=== PATIENT | male | born 1955 | race Caucasian/White ===

== ENCOUNTER → 2017-06-20 09:04 | Outpatient (POV) | payer MEDICARE, SELFPAY | PROVIDERS: Visit Provider Dermatology | DX: Z00.00 Encounter for general adult medical examination without abnormal findings (principal) ==

== ENCOUNTER → 2017-10-24 14:44 | Outpatient (POV) | payer MEDICARE, SELFPAY | PROVIDERS: Visit Provider Dermatology | DX: Z00.00 Encounter for general adult medical examination without abnormal findings (principal) ==

== ENCOUNTER 2021-03-23 16:16 | Emergency (ER) | payer MEDICARE, SELFPAY ==
--- NOTE | 2021-03-23 16:10 | ECG_ITS ---
APPROVED REPORT Exam: Resting ECG HR:82 bpm ECG Measurements Heart Rate 82 AXES ID 156 P 81 QRSd 84 QRS 15 QT 372 T 14 QTc 434 Conclusion Normal sinus rhythm Normal ECG Electronically signed by : Lopez Luna MD 03/24/2021 22:38:38
[2021-03-23 16:17] VITALS: BP 163/76; PULSE 82; RESP 18; TEMP 36.4; O2SAT 97; BMI 27.2
[2021-03-23 16:24] VITALS: BMI 27.2
--- NOTE | 2021-03-23 16:25 | XR_ITS ---
PROCEDURE INFORMATION: Exam: XR Chest Exam date and time: 03/23/2021 4:25 PM Age: 65 years old Clinical indication: Chest pressure; Patient HX: Chest pain TECHNIQUE: Imaging protocol: XR of the chest. Views: 1 view. COMPARISON: ABDPELW/O CT ABD PELVIS W/O CONTRAST 08/21/2015 11:18 PM FINDINGS: Lungs: Some peripheral interstitial prominence is seen. This corresponds to findings on CT from 2016 and is favored to be chronic interstitial disease are scarring. No focal consolidation, but the small basilar superimposed infiltrate is not excluded. Pleural spaces: Unremarkable. No pleural effusion. No pneumothorax. Heart/Mediastinum: Unremarkable. No cardiomegaly. Bones/joints: Unremarkable. IMPRESSION: Evidence of chronic interstitial lung disease. A small superimposed infiltrate cannot be excluded.
[2021-03-23 16:41] LABS: Basophils # 0.1 K/mm3 (0-0.2); Basophils % 0.9 % (0.1-2.0); Eosinophils # 0.2 K/mm3 (0.0-0.4); Eosinophils % 2.1 % (0.1-12.0); Hemoglobin 13.3 g/dL (14.1-18.0); Lymphocytes # 3.1 K/mm3 (0.7-4.5); Lymphocytes % 27.4 % (10-50); Mean Corpuscular HGB Conc 31.7 g/dL (31.8-35.4); Mean Corpuscular Hemoglobin 32.4 pg (27.0-31.2); Mean Corpuscular Volume 102.3 fl (80-94); Mean Platelet Volume 8.4 fl (7.4-10.4); Monocytes # 0.7 K/mm3 (0.1-1.0); Monocytes % 5.9 % (1.7-9.3); Neutrophils # 7.1 K/mm3 (1.8-7.8); Neutrophils % 63.7 % (37.0-80.0); Platelet Count 290 K/mm3 (142-424); Red Cell Distribution Width 13.6 % (11.5-17.5); White Blood Count 11.1 K/mm3 (4.8-10.8)
[2021-03-23 16:43] LABS: Chloride 100 mmol/L (98-107); Potassium 3.8 mmoL/L (3.5-5.1); Sodium 138 mmol/L (136-145)
[2021-03-23 16:46] LABS: Anion Gap 15.8 mEq/L (5-15); Blood Urea Nitrogen 7 mg/dl (9-20); Carbon Dioxide 26 mmol/L (22.0-30.0); Creatinine Clearance Estimated 90 mL/min (50-200); Estimated Glomerular Filt Rate 113 ml/min (>60); GFR (African American) 137 ML/MIN (>60)
[2021-03-23 16:47] LABS: Glucose 188 mg/dl (74-100)
[2021-03-23 17:10] LABS: Troponin I < 0.01 ng/ml (0.00-0.034)
--- NOTE | 2021-03-23 17:13 | HMH.EDGENADL ---
ED Disposition Clinical Impression: Chest pain Qualifiers: Chest pain type: chest pain due to myocardial ischemia Ischemic chest pain type: unspecified angina pectoris type Qualified Code(s): I25.9 - Chronic ischemic heart disease, unspecified Disposition: Home, Self-Care Condition on Discharge: Fair Additional Instructions: Follow-up with your primary care physician or your hand compositor. Return to the emergency department for any new or concerning symptoms. Referrals: Poppy Glasgow [Primary Care Provider] - - Critical Care Critical Care Time: No Attestation: On 03/23/21, the high probability of a clinically significant, sudden or life threatening deterioration of the following system(s) required my full and direct attention, intervention and personal management. The time I documented below is in addition to time spent performing reported procedures but includes the following listed in this critical care notation. Medical Decision Making - Medical Records Medical records reviewed: Yes: I reviewed the patient's medical records. - [place] Inquiry Pt receiving controlled substance: No Vital Signs: 03/23/21 16:17 03/23/21 20:01 Temperature 97.6 F 97.6 F Temperature Source Oral Pulse Rate 79 Pulse Rate [Left Radial] 82 Respiratory Rate 18 16 Blood Pressure 157/75 H Blood Pressure [Right Arm] 163/76 H Blood Pressure Mean [Right Arm] 105 Blood Pressure Source [Right Arm] Automatic Cuff Blood Pressure Position [Right Arm] Sitting 02 Sat by Pulse Oximetry 97 Oxygen Delivery Method Room Air - Lab Data Lab Results 03/23/21 16:15: WBC 11.1 H, RBC 4.10 L, Hgb 13.3 L, Hct 42.0, MCV 102.3 H, MCH 32.4 H, MCHC 31.7 L, RDW 13.6, Plt Count 290, MPV 8.4, Neut % (Auto) 63.7, Lymph % (Auto) 27.4, Hood % (Auto) 5.9, Eos % (Auto) 2.1, Baso % (Auto) 0.9, Neut # (Auto) 7.1, Lymph # (Auto) 3.1, Hood # (Auto) 0.7, Eos # (Auto) 0.2, Baso # (Auto) 0.1 03/23/21 16:15: Sodium 138, Potassium 3.8, Chloride 100, Carbon Dioxide 26, Anion Gap 15.8 H, BUN 7 L, Creatinine 0.70, Estimated Creat Clear 90, Estimated GFR 113, Est GFR ( Amer) 137, Glucose 188 H, Calcium 9.0, Troponin I < 0.01 03/23/21 19:20: Troponin I 0.03 Result diagrams: 03/23/21 16:15 03/23/21 16:15 - KASHIF Score for Non-Stemi Age of Patient: 60-69 years old Heart Rate: 70-89 bpm Systolic Blood Pressure: 160-199 mmHg Serum Creatinine: 0.40-0.79 mg/dl CHF Killip Class: I-No CHF Other Risk Factors: None Non-Stemi Risk Score: 81 Medical Decision Narrative: Patient is a 65-year-old male presenting to the emergency department with chief complaint of chest pain that began when he was driving. Differential diagnosis for this patient includes ACS, musculoskeletal chest pain, pneumonia, pneumothorax, electrolyte normality among others. Given this plan order CBC, CMP, chest x-ray, troponin, EKG. EKG showed normal sinus rhythm, did not show significant ischemic changes from the patient's prior. Chest x-ray showed no acute changes, CBC and CMP were grossly within normal limits. Initial troponin was negative, however given the patient's past heart history, as well as fasting the patient presented to the ER after chest pain will get a second troponin to trend. Already had 325 of aspirin prior to coming to the emergency department. Second troponin was not elevated, patient was observed for period of time while emergency department. He had no return of symptoms, discharged in stable condition, encouraged to call follow-up with his primary care physician and his hand compositor. General Adult HPI - General Chief complaint: Chest Pain Stated complaint: CHEST PAIN Time Seen by Provider: 03/23/21 16:25 Mode of Arrival: Ambulatory Limitations: No Limitations Description of Symptoms (Recalled from ER Triage Doc. by RN): left sided chest pain that improved with 2 nitros - History of Present Illness HPI narrative: Patient is a 65-year-old male past medical history of h
[2021-03-23 19:46] LABS: Troponin I 0.03 ng/ml (0.00-0.034)
[2021-03-23 20:01] VITALS: BP 157/75; PULSE 79; RESP 16; TEMP 36.4; O2SAT 99
== END 2021-03-23 20:02 | disposition home or self-care (01) ==
PROVIDERS: Emergency Provider Emergency Medicine; PCP Nurse Practitioner Family
DX: R07.9 Chest pain, unspecified (principal); I25.10 Atherosclerotic heart disease of native coronary artery without angina pectoris; I10 Essential (primary) hypertension; E78.5 Hyperlipidemia, unspecified; Z79.899 Other long term (current) drug therapy
CPT/HCPCS: 71045; 80048; 84484; 85025; 93005; 99283

== ENCOUNTER 2022-10-15 05:18 | Emergency (ER) | payer MEDICARE, MEDICAID, SELFPAY ==
[2022-10-15] VITALS (9 sets, daily range): BP systolic 71–124; BP diastolic 45–77; PULSE 40–80; RESP 11–23; TEMP 36.6; O2SAT 95–98; BMI 31.1
--- NOTE | 2022-10-15 05:32 | XR_ITS ---
PROCEDURE INFORMATION: Exam: XR Chest Exam date and time: 10/15/2022 5:32 AM Age: 67 years old Clinical indication: Pain; Chest pressure TECHNIQUE: Imaging protocol: Radiologic exam of the chest. Views: 2 views. COMPARISON: CR XR CHEST PORTABLE 03/23/2021 4:53 PM FINDINGS: Lungs: Some patchy bibasilar airspace disease is unchanged. Pleural spaces: Unremarkable. No pleural effusion. No pneumothorax. Heart/Mediastinum: Unremarkable. No cardiomegaly. Bones/joints: Unremarkable. IMPRESSION: Patchy bibasilar airspace disease unchanged.
--- NOTE | 2022-10-15 05:37 | ECG_ITS ---
APPROVED REPORT Exam: Resting ECG HR:70 bpm ECG Measurements Heart Rate 70 AXES NM 161 P 87 QRSd 85 QRS 39 QT 373 T 27 QTc 394 Conclusion SINUS RHYTHM WITH FREQUENT SUPRAVENTRICULAR PREMATURE COMPLEXES ABNORMAL RHYTHM ECG UNCONFIRMED REPORT Electronically signed by : Lopez Luna MD 10/16/2022 17:32:10
--- NOTE | 2022-10-15 05:38 | PC.NURSE ---
Called [facility] for records from recent visit, stating they will fax shortly
[2022-10-15 05:42] LABS: Chloride 98 mmol/L (98-107); Sodium 134 mmol/L (136-145)
[2022-10-15 05:43] LABS: Potassium 4.6 mmoL/L (3.5-5.1)
--- NOTE | 2022-10-15 05:43 | PC.NURSE ---
Pt returned from RAD
[2022-10-15 05:44] LABS: Basophils % 0.5 % (0.1-2.0); Eosinophils # 0.2 K/mm3 (0.0-0.4); Eosinophils % 2.3 % (0.1-12.0); Hematocrit 40.8 % (42.0-52.0); Hemoglobin 12.8 g/dL (14.1-18.0); Lymphocytes % 34.2 % (10-50); Mean Corpuscular HGB Conc 31.2 g/dL (31.8-35.4); Mean Corpuscular Hemoglobin 31.4 pg (27.0-31.2); Mean Corpuscular Volume 100.5 fl (80-94); Mean Platelet Volume 7.9 fl (7.4-10.4); Monocytes # 0.5 K/mm3 (0.1-1.0); Neutrophils # 4.9 K/mm3 (1.8-7.8); Platelet Count 255 K/mm3 (142-424); Red Blood Count 4.07 M/mm3 (4.60-6.20); Red Cell Distribution Width 14.3 % (11.5-17.5); White Blood Count 8.7 K/mm3 (4.8-10.8)
[2022-10-15 05:45] LABS: Alanine Aminotransferase 20 U/L (12-78); Albumin Level 3.9 g/dl (3.5-5.0); Albumin/Globulin Ratio 1.2 (1.1-1.8); Alkaline Phosphatase 92 U/L (38-126); Anion Gap 13.6 mEq/L (5-15); Aspartate Amino Transferase 36 U/L (17-59); Blood Urea Nitrogen 12 mg/dl (9-20); Carbon Dioxide 27 mmol/L (22.0-30.0); Creatinine Clearance Estimated 89 mL/min (50-200); Estimated Glomerular Filt Rate 75 ml/min (>60); GFR (African American) 90 ML/MIN (>60); Globulin 3.3 g/dL (1.3-3.2); Total Protein,Serum 7.2 g/dl (6.3-8.2)
[2022-10-15 05:46] LABS: Bilirubin,Total 0.1 mg/dl (0.2-1.3); Calcium 8.6 mg/dl (8.4-10.2); Glucose 120 mg/dl (74-100)
--- NOTE | 2022-10-15 05:54 | CT_ITS ---
PROCEDURE INFORMATION: Exam: CTA Chest With Contrast Exam date and time: 10/15/2022 6:13 AM Age: 67 years old Clinical indication: Pain; Chest pressure; Additional info: Pain, lightheadedness TECHNIQUE: Imaging protocol: Computed tomographic angiography of the chest with contrast. Exam focused on the arteries. 3D rendering (Not supervised by radiologist): MIP and/or 3D reconstructed images were created by the technologist. Radiation optimization: All CT scans at this facility use at least one of these dose optimization techniques: automated exposure control; mA and/or kV adjustment per patient size (includes targeted exams where dose is matched to clinical indication); or iterative reconstruction. Contrast material: ISOVUE; Contrast volume: 70 ml; Contrast route: INTRAVENOUS (IV); REPORTING DATA: Count of CT and Cardiac NM exams in prior 12 months: This patient has received 0 known CTs and 0 known cardiac nuclear medicine studies in the 12 months prior to the current study. COMPARISON: CR XR CHEST 2V 10/15/2022 5:32 AM FINDINGS: Pulmonary arteries: Normal. No pulmonary emboli. Aorta: Unremarkable. No aortic aneurysm. No aortic dissection. Lungs: Basilar atelectasis. Pleural spaces: Unremarkable. No pneumothorax. No pleural effusion. Heart: Unremarkable. No cardiomegaly. No pericardial effusion. Coronary arteries: Extensive coronary atherosclerosis. Lymph nodes: Prominent mediastinal lymphadenopathy. Bones/joints: Unremarkable. No acute fracture. Soft tissues: Unremarkable. IMPRESSION: 1. No evidence of pulmonary embolus. 2. Extensive coronary atherosclerosis. 3. Diffuse bibasilar atelectasis and subpleural fibrotic change.
[2022-10-15 06:04] LABS: Troponin I < 0.01 ng/ml (0.00-0.034)
--- NOTE | 2022-10-15 06:08 | PC.NURSE ---
Pt gone to CT via wheelchair
--- NOTE | 2022-10-15 06:17 | PC.NURSE ---
Pt returned from RAD via wheelchair
--- NOTE | 2022-10-15 06:18 | PC.NURSE ---
Called respiratory to check if there is a holter monitor available. Advised she would check and call back.
--- NOTE | 2022-10-15 06:22 | PC.NURSE ---
Respiratory called to state they did not have any ready but there are 2 drop off that will have to be prepared. notified
--- NOTE | 2022-10-15 06:22 | HMH.EDDIZZ ---
Discharge Plan Disposition Patient Disposition: Still a Patient Chief Complaint: Dizziness Prescriptions Prescriptions: No Action carvedilol 6.25 mg tablet 6.25 mg PO BID Label Comments: Take 1 tablet twice a day by oral route with meals. lisinopril 20 mg tablet 20 mg PO DAILY Label Comments: Take 1 tablet by mouth once daily isosorbide mononitrate 30 mg tablet extended release 24 hr 30 mg PO DAILY Label Comments: TAKE 1 TABLET by mouth 1 TIME EACH DAY IN THE MORNING clopidogrel 75 mg tablet 75 mg PO DAILY Label Comments: TAKE 1 TABLET by mouth 1 TIME EACH DAY amlodipine 5 mg tablet 5 mg PO DAILY Label Comments: Take 1 tablet every day by oral route. omeprazole 40 mg capsule,delayed release(DR/EC) 40 mg PO DAILY Label Comments: TAKE ONE CAPSULE BY MOUTH EVERY DAY tamsulosin 0.4 mg capsule 0.4 mg PO HS Label Comments: TAKE ONE CAPSULE BY MOUTH EVERY DAY AT BEDTIME gabapentin 800 mg tablet 800 mg PO QID Label Comments: TAKE 1 TABLET by mouth 4 TIMES EACH DAY metformin 1,000 mg tablet 1,000 mg PO BID Label Comments: TAKE 1 TABLET by mouth twice daily lovastatin 20 mg tablet 20 mg PO HS Label Comments: TAKE 1 TABLETby mouth once a DAY WITH THE EVENING MEAL Januvia 100 mg tablet 100 mg PO DAILY Label Comments: TAKE 1 TABLET by mouth once daily Jardiance 25 mg tablet 25 mg PO DAILY Label Comments: TAKE 1 TABLET by mouth 1 TIME EACH DAY IN THE MORNING Referrals Follow up/Referrals: Poppy Glasgow [Primary Care Provider] - See instructions Troy Jhaveri MD [Staff Physician] - See instructions Ilda Cook DPM [Staff Physician] - See instructions Activity Restrictions/Add. Instructions Additional Instructions/Restrictions: will need to see card saturday 11 am Clinical Impressions Clinical Impression: Orthostatic hypotension, Medication adverse effect Instructions Patient Instructions: DI for Orthostatic Hypotension Discharge ED Provider: Rigo (ED)Mj General Chief Complaint: Dizziness Stated Complaint: Fell d/t light headed & dizziness upper chest/back Time Seen by Provider: 10/15/22 06:22 Mode of Arrival: Ambulatory Source of Information: Patient and Medical Record Limitations: No Limitations Description of Symptoms (Recalled from ER Triage Doc. by RN): pt c/o dizziness x one month and has fallen several times. pt states was seen at [facility] for same problem. pt denies loc History of Present Illness HPI Narrative: pt with reports of occ dizzyness more with standing - pt took meds at 3 am - uncertain which meds -pt has hx of cad and was recently at [place]- for dizzyness and foot fx -lt - was advised to hold meds till discuss with pcp - pt has not seen pcp - pt has not seen card for years -no chest pain and no head trauma - no fever/no focal neuro sx and no speech or visual sx - MD complaint: dizziness and lightheadedness Onset (ago): hour(s) Timing: waxing/waning History of similar episodes: Yes History of trauma: No Severity: moderate Associated symptoms: chest pain Related Data Home Medications Medication Instructions Recorded Confirmed amlodipine 5 mg tablet 5 mg PO DAILY High blood pressure 10/15/22 10/15/22 carvedilol 6.25 mg tablet 6.25 mg PO BID High blood pressure 10/15/22 10/15/22 clopidogrel 75 mg tablet 75 mg PO DAILY Blood thinner 10/15/22 10/15/22 empagliflozin 25 mg tablet 25 mg PO DAILY Diabetes 10/15/22 10/15/22 (Jardiance) gabapentin 800 mg tablet 800 mg PO QID Pain 10/15/22 10/15/22 isosorbide mononitrate 30 mg 30 mg PO DAILY High blood pressure 10/15/22 10/15/22 tablet,extended release 24 hr lisinopril 20 mg tablet 20 mg PO DAILY High blood pressure 10/15/22 10/15/22 lovastatin 20 mg tablet 20 mg PO HS heart diease 10/15/22 10/15/22 metformin 1,000 mg tablet 1,000 mg PO BID Diabetes 10/15/22 05
--- NOTE | 2022-10-15 06:28 | PC.NURSE ---
Manual BP: 80/50
--- NOTE | 2022-10-15 06:34 | PC.NURSE ---
cynthia notified of pt's blood pressure
--- NOTE | 2022-10-15 07:20 | PC.NURSE ---
RT at placing holter monitor on pt.
--- NOTE | 2022-10-15 07:42 | PC.NURSE ---
TYRONE PAULA spoke with Dr. Frausto. Pt to follow up with Dr. frausto in clinic tomorrow at 11AM
--- NOTE | 2022-10-15 08:02 | PC.NURSE ---
ROUNDED ON PT, NO NEEDS AT THIS TIME
== END 2022-10-15 08:50 | disposition home or self-care (01) ==
PROVIDERS: Emergency Provider Emergency Medicine; PCP Nurse Practitioner Family
DX: R42 Dizziness and giddiness (principal); I95.1 Orthostatic hypotension; R07.9 Chest pain, unspecified; T50.905A Adverse effect of unspecified drugs, medicaments and biological substances, initial encounter; F17.210 Nicotine dependence, cigarettes, uncomplicated
CPT/HCPCS: 71046; 71275; 80053; 84484; 85025; 93005; 93225; 93226; 96360; 96361; 99285; Q9967

== ENCOUNTER → 2022-10-16 12:25 | Outpatient (CLI) | payer MEDICARE, MEDICAID, SELFPAY ==
[2022-10-16 13:23] LABS: Troponin I < 0.01 ng/ml (0.00-0.034)
== END ==
PROVIDERS: PCP Nurse Practitioner Family; Visit Provider Internal Medicine
DX: E11.9 Type 2 diabetes mellitus without complications (principal); E78.5 Hyperlipidemia, unspecified; I10 Essential (primary) hypertension; I25.9 Chronic ischemic heart disease, unspecified; R94.31 Abnormal electrocardiogram [ECG] [EKG]; I20.8 Other forms of angina pectoris; I95.1 Orthostatic hypotension; Z79.84 Long term (current) use of oral hypoglycemic drugs
CPT/HCPCS: 36415; 84484; 93306

== ENCOUNTER 2024-02-03 10:45 | Outpatient (CLI) | payer MEDICARE, MEDICAID, SELFPAY ==
[2024-02-03 16:40] LABS: Basophils # 0.1 K/mm3 (0-0.2); Basophils % 0.6 % (0.1-2.0); Eosinophils # 0.1 K/mm3 (0.0-0.4); Eosinophils % 1.1 % (0.1-12.0); Hematocrit 45.7 % (42.0-52.0); Hemoglobin 13.9 g/dL (14.1-18.0); Lymphocytes # 3.2 K/mm3 (0.7-4.5); Lymphocytes % 35.6 % (10-50); Mean Corpuscular HGB Conc 30.4 g/dL (31.8-35.4); Mean Corpuscular Hemoglobin 30.9 pg (27.0-31.2); Mean Corpuscular Volume 101.7 fl (80-94); Mean Platelet Volume 8.5 fl (7.4-10.4); Monocytes # 0.8 K/mm3 (0.1-1.0); Monocytes % 9.2 % (1.7-9.3); Neutrophils # 4.7 K/mm3 (1.8-7.8); Neutrophils % 53.5 % (37.0-80.0); Platelet Count 340 K/mm3 (142-424); Red Blood Count 4.49 M/mm3 (4.60-6.20); Red Cell Distribution Width 15.9 % (11.5-17.5); White Blood Count 8.9 K/mm3 (4.8-10.8)
[2024-02-03 17:14] LABS: Albumin Level 3.9 g/dl (3.5-5.0); Chloride 99 mmol/L (98-107); Potassium 4.5 mmoL/L (3.5-5.1); Sodium 131 mmol/L (136-145)
[2024-02-03 17:17] LABS: Alanine Aminotransferase 16 U/L (12-78); Albumin/Globulin Ratio 1.2 (1.1-1.8); Alkaline Phosphatase 69 U/L (38-126); Anion Gap 8.5 mEq/L (5-15); Aspartate Amino Transferase 28 U/L (17-59); Bilirubin,Total 0.5 mg/dl (0.2-1.3); Blood Urea Nitrogen 10 mg/dl (9-20); Carbon Dioxide 28 mmol/L (22.0-30.0); Cholesterol 156 mg/dl (140-200); Estimated Glomerular Filt Rate 67 ml/min (>60); GFR (African American) 81 ML/MIN (>60); Globulin 3.2 g/dL (1.3-3.2); Total Protein,Serum 7.1 g/dl (6.3-8.2); Triglycerides 64 mg/dl (30-150); VLDL Cholesterol 13 mg/dL (0-40)
[2024-02-03 17:18] LABS: Calcium 8.8 mg/dl (8.4-10.2); Glucose 112 mg/dl (74-100); HDL Cholesterol 68 mg/dl (40-60)
[2024-02-03 17:28] LABS: Direct LDL Cholesterol 57.25 mg/dL (100-129)
[2024-02-03 17:47] LABS: Thyroid Stimulating Hormone 1.97 uIU/mL (0.465-4.68)
[2024-02-03 17:49] LABS: Chol/HDL Ratio 2.3 (1-3.5)
[2024-02-03 19:03] LABS: Prostate Specific Ag Screen 0.3 ng/ml (0.0-4.0)
== END 2024-02-03 23:59 | disposition home or self-care (01) ==
LOC: LAB.DROPOF 02-04 09:39
PROVIDERS: PCP Family Medicine; Visit Provider Family Medicine
DX: Z12.5 Encounter for screening for malignant neoplasm of prostate; E11.69 Type 2 diabetes mellitus with other specified complication
CPT/HCPCS: 80053; 80061; 84443; 85025; G0103

== ENCOUNTER 2024-04-06 12:51 | Observation (INO) | payer MEDICARE, MEDICAID, SELFPAY ==
[2024-04-06] VITALS (23 sets, daily range): BP systolic 50–108; BP diastolic 34–84; PULSE 34–116; RESP 12–26; TEMP 36.6–36.8; O2SAT 77–97; BMI 28.8; BMI 28.1
--- NOTE | 2024-04-06 12:59 | ECG_ITS ---
APPROVED REPORT Exam: Resting ECG HR:113 bpm ECG Measurements Heart Rate 113 AXES QRSd 92 QRS -26 QT 324 T 261 QTc 391 Conclusion ATRIAL FIBRILLATION WITH RAPID VENTRICULAR RESPONSE BORDERLINE LEFT AXIS DEVIATION [QRS AXIS < -20] ST DEVIATION AND MODERATE T-WAVE ABNORMALITY, CONSIDER LATERAL ISCHEMIA [-0.1+ mV T-WAVE IN I/aVL/V5/V6] ST DEVIATION AND MODERATE T-WAVE ABNORMALITY, CONSIDER INFERIOR ISCHEMIA [-0.1+ mV T-WAVE IN II/aVF] ABNORMAL ECG UNCONFIRMED REPORT Electronically signed by : CAPRICE CORDOVA, 04/07/2024 06:48:09
--- NOTE | 2024-04-06 13:22 | ED_ITS ---
Discharge Plan Disposition Patient Disposition: Admitted Chief Complaint: Dizziness Prescriptions Prescriptions: No Action aspirin 81 mg tablet 81 mg PO DAILY clopidogrel 75 mg tablet 75 mg PO DAILY Qty: 90 3RF Jardiance 25 mg tablet 25 mg PO DAILY Qty: 90 3RF gabapentin 800 mg tablet 800 mg PO QID Qty: 360 1RF lisinopril 20 mg tablet 20 mg PO DAILY Qty: 90 3RF metformin 1,000 mg tablet 1,000 mg PO BID Qty: 180 3RF omeprazole 40 mg capsule,delayed release(DR/EC) 40 mg PO DAILY Qty: 90 3RF Januvia 100 mg tablet 100 mg PO DAILY Qty: 90 3RF tamsulosin 0.4 mg capsule 0.4 mg PO HS Qty: 90 3RF furosemide 40 mg tablet 40 mg PO DAILY 90 Days Qty: 90 0RF atorvastatin 80 mg tablet 80 mg PO HS 90 Days Qty: 90 0RF metoprolol tartrate 25 mg tablet 25 mg PO BID 90 Days Qty: 180 0RF Brilinta 90 mg tablet 90 mg PO BID 90 Days Qty: 180 0RF nitroglycerin 0.4 mg tablet, sublingual 0.4 mg sublingual Q5-15M PRN (Reason: chest pain) Qty: 30 0RF Rx Instructions: do not exceed 3 doses per episode Referrals Follow up/Referrals: Wilfrid Martinez MD [Primary Care Provider] - See instructions Clinical Impressions Clinical Impression: Atrial fibrillation with RVR, Weakness, Hypomagnesemia, Elevated troponin, CHF exacerbation Print Language Print Language: Malian Discharge ED Provider: David Klein General Adult HPI <Griselda Guadarrama DO - Last Filed: 04/06/24 15:07> General Chief complaint: Dizziness Stated complaint: dizziness x2 days Time Seen by Provider: 04/06/24 13:09 Mode of Arrival: Ambulatory Source of Information: Patient Limitations: No Limitations Description of Symptoms (Recalled from ER Triage Doc. by RN): PT PRESENTS TO THE ER FOR DIZZINESS, STATES IT HAS BEEN GOING ON FOR A COUPLE MONTHS BUT HAS BEEN INCREASINGLY WORSE SINCE YESTERDAY, STATES IT GETS BETTER WHEN HE SITS AND REST AND WORSE WHEN HE STANDS UP History of Present Illness HPI narrative: This patient is a 69-year-old male with a history of CAD status post stenting, reported [place] in September in [place], hypertension, hyperlipidemia, diabetes presented to the emergency department for evaluation with concern for lightheadedness that has been going on for couple months but significant got worse yesterday. He states that he gets better when he rests and worse whenever he stands up. He denies any other symptoms, such as fevers, chills, nausea, vomiting, chest pain, shortness of breath, headache, vision changes, true vertigo, or other concerns. He denies any known prior diagnoses of atrial fibrillation, but it does appear that he is in atrial fibrillation with RVR today. He states he is not aware of any palpitations or high heart rate. Related Data Home Medications ?Medication ?Instructions ?Recorded ?Confirmed aspirin 81 mg tablet 81 mg PO DAILY 10/16/22 04/02/24 Previous Rx's ?Medication ?Instructions ?Recorded clopidogrel 75 mg tablet 75 mg PO DAILY Blood thinner #90 02/03/24 tabs empagliflozin 25 mg tablet 25 mg PO DAILY Diabetes #90 tabs 02/03/24 (Jardiance) gabapentin 800 mg tablet 800 mg PO QID Pain #360 tabs 02/03/24 lisinopril 20 mg tablet 20 mg PO DAILY High blood pressure 02/03/24 #90 tabs metformin 1,000 mg tablet 1,000 mg PO BID Diabetes #180 tabs 02/03/24 omeprazole 40 mg capsule,delayed 40 mg PO DAILY gerd #90 caps 02/03/24 release sitagliptin phosphate 100 mg 100 mg PO DAILY Diabetes #90 tabs 02/03/24 tablet (Januvia) tamsulosin 0.4 mg capsule 0.4 mg PO HS prostate #90 caps 02/03/24 nitroglycerin 0.4 mg sublingual 0.4 mg sublingual Q5-15M PRN chest 03/02/24 tablet pain #30 tabs atorvastatin 80 mg tablet 80 mg PO HS 90 days #90 tabs 04/02/24 furosemide 40 mg tablet 40 mg PO DAILY 90 days #90 tabs 04/02/24 metoprolol tartrate 25 mg tablet 25 mg PO BID 90 days #180 tabs 04/02/24 ticagrelor 90 mg tablet (Brilinta) 90 mg PO BID 90 days #180 tabs 04/02/24 Allergies Allergy/AdvReac Type Severity Reaction Status Date / Time No Known Allergies Allergy Verified 04/06/24 13:16 PFSH <Griselda Guadarrama, DO - Last Filed: 04/06/24 15:07> [facility] Disclaimer: The information contained in this section may have been updated after the patient was seen, as this information can be updated by other users. Medical History Heart attack Abnormal electrocardiogram [ECG] [EKG] DM type 2 (diabetes mellitus, type 2) HLD (hyperlipidemia) HTN (hypertension) Coronary artery disease Coronary artery calcification seen on CAT scan Social History Smoking Status: Never smoker alcohol intake: never current occupational status: retired Travel in the last 8 weeks: None Other Medical History Have you received the Flu Vaccine for this season: No Have you received the Pneumonia Vaccine: Yes <Griselda Guadarrama DO - Last Filed: 04/06/24 15:07> ROS Obtained: Yes All systems reviewed & no additional complaints except as documented Physical Exam <Griselda Guadarrama DO - Last Filed: 04/06/24 15:07> General General appearance: alert and in no apparent distress Head Head exam: atraumatic and normocephalic Eye Eye exam: Present normal appearance, PERRL and EOMI ENT ENT exam: Present normal exam, normal oropharynx, mucous membranes moist and normal external ear exam Neck Neck exam: Present normal inspection, full ROM and trachea midline; Absent tenderness Chest Chest inspection: Present normal inspection and symmetric chest wall rise; Absent tenderness Respiratory Respiratory exam: Present normal lung sounds bilaterally; Absent respiratory distress, wheezes, stridor or accessory muscle use Cardiovascular Cardiovascular exam: Present tachycardia and irregular rhythm Abdominal Exam Abdominal exam: Present soft; Absent distention, tenderness or guarding Extremities Exam Extremities exam: Present normal inspection, full ROM and normal capillary refill; Absent tenderness or edema Back Exam Back exam: Present normal inspection and full ROM; Absent tenderness Neurological Exam Neurological exam: Present alert, oriented X3, CN II-XII intact and normal gait; Absent motor sensory deficit Psychiatric Psychiatric exam: Present normal affect and normal mood Skin Skin exam: Present warm and dry Medical Decision Making <Griselda Guadarrama DO - Last Filed: 04/06/24 15:07> Medical Records Medical records reviewed: Yes I reviewed the patient's medical records. Screening: Per USPSTF and CDC recommendations, given the prevalence of disease in our region, it is our hospital?s policy to screen for HIV and viral Hepatitis for all patients aged 18 and over and those with ongoing risk factors. [place] Inquiry Pt receiving controlled substance: No Vital Signs: 04/06/24 12:52 04/06/24 13:16 04/06/24 13:30 Temperature 97.9 F Temperature Source Oral Pulse Rate 114 H 98 H Pulse Rate [Left Radial] 116 H Respiratory Rate 18 19 26 H Blood Pressure 103/84 L 93/75 L Blood Pressure [Right Arm] 87/68 L Blood Pressure Mean 89 79 Blood Pressure Mean [Right Arm] 74 Blood Pressure Source [Right Arm] Automatic Cuff Blood Pressure Position [Right Arm] Sitting 02 Sat by Pulse Oximetry 96 93 L 97 Oxygen Delivery Method Room Air 04/06/24 14:00 04/06/24 14:03 04/06/24 14:04 Temperature Temperature Source Pulse Rate 93 H 94 H 94 H Pulse Rate [Left Radial] Respiratory Rate 21 20 14 Blood Pressure 61/45 L 50/34 L 71/58 L Blood Pressure [Right Arm] Blood Pressure Mean 50 39 59 Blood Pressure Mean [Right Arm] Blood Pressure Source [Right Arm] Blood Pressure Position [Right Arm] 02 Sat by Pulse Oximetry 96 97 95 Oxygen Delivery Method 04/06/24 14:21 04/06/24 14:31 04/06/24 15:00 Temperature Temperature Source Pulse Rate 92 H 70 Pulse Rate [Left Radial] Respiratory Rate 14 18 23 Blood Pressure 81/57 L 88/57 L 101/59 L Blood Pressure [Right Arm] Blood Pressure Mean 62 64 68 Blood Pressure Mean [Right Arm] Blood Pressure Source [Right Arm] Blood Pressure Position [Right Arm] 02 Sat by Pulse Oximetry 96 96 96 Oxygen Delivery Method 04/06/24 15:30 04/06/24 16:00 04/06/24 16:31 Temperature Temperature Source Pulse Rate 75 34 L 73 Pulse Rate [Left Radial] Respiratory Rate 12 15 14 Blood Pressure 100/65 L 96/58 L 76/57 L Blood Pressure [Right Arm] Blood Pressure Mean 75 68 64 Blood Pressure Mean [Right Arm] Blood Pressure Source [Right Arm] Blood Pressure Position [Right Arm] 02 Sat by Pulse Oximetry 91 L 77 L 95 Oxygen Delivery Method 04/06/24 17:00 Temperature Temperature Source Pulse Rate 74 Pulse Rate [Left Radial] Respiratory Rate 21 Blood Pressure 93/68 L Blood Pressure [Right Arm] Blood Pressure Mean Blood Pressure Mean [Right Arm] Blood Pressure Source [Right Arm] Blood Pressure Position [Right Arm] 02 Sat by Pulse Oximetry 93 L Oxygen Delivery Method Lab Data Lab results reviewed: Yes I reviewed the patient's lab results. Lab Results 04/06/24 13:00: WBC 10.7, RBC 4.60, Hgb 14.4, Hct 43.3, MCV 94.1 H, MCH 31.4 H, MCHC 33.4, RDW 15.5, Plt Count 292, MPV 7.6, Neut % (Auto) 65.8, Lymph % (Auto) 25.3, [place] % (Auto) 6.6, Eos % (Auto) 1.3, Baso % (Auto) 1.0, Neut # (Auto) 7.0, Lymph # (Auto) 2.7, [place] # (Auto) 0.7, Eos # (Auto) 0.1, Baso # (Auto) 0.1, PT 11.7, INR 1.05, APTT 28.2, D-Dimer 3.46 H, Sodium 132 L, Potassium 3.9, Chloride 90 L, Carbon Dioxide 29, Anion Gap 16.9 H, BUN 23 H, Creatinine 1.40 H, Estimated Creat Clear 57, Estimated GFR 50 L, Est GFR ( Amer) 61, Glucose 202 H, Calcium 7.9 L, Magnesium 0.5 L, Total Bilirubin 0.5, AST 35, ALT 20, Alkaline Phosphatase 86, Troponin I 0.07 H, NT-Pro-B Natriuret Pep 4990 H, Total Protein 7.8, Albumin 4.3, Globulin 3.5 H, Albumin/Globulin Ratio 1.2, HIV 1&2 Antibody Rapid Nonreactive 04/06/24 13:00 04/06/24 13:00 Orders (Tests/Meds): ED MEDICATIONS Discontinued Medications Generic Name Dose Route Start Last Admin Trade Name Freq PRN Reason Stop Dose Admin Digoxin 500 mcg 04/06/24 14:07 04/06/24 14:26 Digoxin 0.25mg/Ml 2ml Ampul IV 04/06/24 14:08 500 mcg ONCE ONE Administration Magnesium Sulfate 2 gm in 50 mls @ 50 mls/hr 04/06/24 14:37 04/06/24 14:40 Magnesium Sulfate 2gm/50ml Premix IV 04/06/24 15:36 50 mls/hr ONCE ONE Administration Calcium Gluconate/Sodium Chloride 2 gm in 100 mls @ 50 mls/hr 04/06/24 14:40 04/06/24 14:44 Calcium Gluconate 2,000mg/100ml Nacl Premix IV 04/06/24 16:39 50 mls/hr ONCE ONE Administration Iopamidol 70 ml 04/06/24 16:29 04/06/24 16:30 Iopamidol-370 (76%);100ml Bottle IV 04/06/24 16:30 70 ml ONCE ONE Administration Metoprolol Tartrate 5 mg 04/06/24 13:39 Metoprolol Tartrate 5mg/5ml Vial IV 05/06/24 13:38 Q5MINP PRN Tachyarrhythmias Sodium Chloride 500 ml 04/06/24 14:02 04/06/24 14:19 Sodium Chloride 0.9% 500ml Bag IV 04/06/24 14:03 500 ml ONCE ONE Administration Sodium Chloride 50 ml 04/06/24 16:29 04/06/24 16:30 0.9 % Sodium Chloride 50 Ml Vial IV 04/06/24 16:30 50 ml ONCE ONE Administration Sodium Chloride 10 ml 04/06/24 16:29 04/06/24 16:30 Sodium Chloride 0.9% 10ml Syr (Rad Only) IV 04/06/24 16:30 10 ml ONCE ONE Administration ORDERS Category Date Time Status CT angio chest PE protocol Stat Cat Scan 04/06/24 14:00 Completed Cardiology Consult [Consult to Cardiology] [CONS] Cons 04/06/24 14:09 Active Routine CXR --portable [XR chest portable] Stat Exams 04/06/24 13:22 Completed BNP [NT Pro Brain Natriuretic Pep.] Stat Lab 04/06/24 13:00 Completed CMP [Comprehensive Metabolic Panel] Stat Lab 04/06/24 13:00 Completed Complete Blood Count Auto Diff Stat Lab 04/06/24 13:00 Completed D-Dimer Stat Lab 04/06/24 13:00 Completed HIV (1&2) Antibody Rapid Stat Lab 04/06/24 13:00 Completed Hep C Ab with Reflex to RNA Stat Lab 04/06/24 13:00 Received MAG [Magnesium] Stat Lab 04/06/24 13:00 Completed PT INR [Prothrombin Time INR] Stat Lab 04/06/24 13:00 Completed PTT [Activated Partial Thrombo Time] Stat Lab 04/06/24 13:00 Completed Trop I [Troponin I] Stat Lab 04/06/24 13:00 Completed Troponin I Q3H Lab 04/06/24 16:32 Received Troponin I Q3H Lab 04/06/24 19:30 Ordered CA echo doppler complete Stat Y 04/06/24 14:07 Completed ECG Data Tracing #1: I reviewed this ECG and interpreted as documented below: Atrial fibrillation with rapid ventricular response with a ventricular to [address]/T wave changes without acute STEMI. ECG initial impression date: 04/06/24 ECG initial impression time: 13:00 Medical Decision Narrative: In summary, this patient is a 69-year-old male presenting to the Emergency Department for evaluation of lightheadedness. Differential diagnoses considered include but are not limited to dysrhythmia, electrolyte derangements, dehydration, CHF, ACS. Ruling out the most morbid conditions drove assessment. It should be noted patient's history includes CAD status post stenting, hypertension, hyperlipidemia, diabetes which may or may not be at goal therapy. This complicates all aspects of care by increasing patient's risk for morbidity. I reviewed patient's past medical records and noted patient's most current medication list which shows that he is on aspirin, Plavix, and Brilinta but I do not see any anticoagulation such as with Xarelto, Eliquis, or Coumadin.. On evaluation, patient is in A-fib with RVR with a rate in the 110s to 120s. He is normotensive on my assessment. Otherwise, his exam is reassuring. EKG confirms A-fib with RVR without acute ST changes concerning for ischemia. Workup included broad lab evaluation to evaluate for metabolic versus cardiac causes of his symptoms. Patient denies any known history of A-fib and is not on any true anticoagulants, though he is on antiplatelet drugs. Also unclear how long he has been in A-fib with RVR given that he has had symptoms for months but acutely got worse yesterday. He is not aware of any palpitations or racing heart rate. Given this, I do not feel that cardioversion is safe without first having an echocardiogram. I did review prior echocardiogram from 2022 which showed a grossly normal EF, but he reportedly had a heart attack for which she was admitted in [place] in September of this year. He is, of note, on metoprolol. I independently interpreted x-ray prior to the radiologist read and noted cardiomegaly with concerns for pulmonary edema. Please see their read for final interpretation. Labs were obtained that demonstrated elevated troponin, significantly elevated D-dimer, mild hyponatremia, mild JOSE JUAN, elevated BNP of 4990. He also was found to have significant hypomagnesemia and hypocalcemia, for which IV replacement were ordered. On reassessment, patient continued to have A-fib with RVR with a rate in the low 100s to 120s. His pressure slightly dropped with systolics in the 60s to 70s and relatively low maps. He was given a bolus of IV fluids for fluid challenge, and his blood pressure significantly improved with systolics in the 100s and maps in the 60s as well as heart rate then in the 70s to 80s, still in atrial fibrillation. I had an indirect discussion with cardiology who advised given the patient 0.50 digoxin and obtain a stat echo. These were ordered. Patient care signed out to the oncoming provider, Dr. Klein, pending CTA for significantly elevated D-dimer and ultimately, admission. <David Klein MD - Last Filed: 04/06/24 17:31> Vital Signs: 04/06/24 12:52 04/06/24 13:16 04/06/24 13:30 Temperature 97.9 F Temperature Source Oral Pulse Rate 114 H 98 H Pulse Rate [Left Radial] 116 H Respiratory Rate 18 19 26 H Blood Pressure 103/84 L 93/75 L Blood Pressure [Right Arm] 87/68 L Blood Pressure Mean 89 79 Blood Pressure Mean [Right Arm] 74 Blood Pressure Source [Right Arm] Automatic Cuff Blood Pressure Position [Right Arm] Sitting 02 Sat by Pulse Oximetry 96 93 L 97 Oxygen Delivery Method Room Air 04/06/24 14:00 04/06/24 14:03 04/06/24 14:04 Temperature Temperature Source Pulse Rate 93 H 94 H 94 H Pulse Rate [Left Radial] Respiratory Rate 21 20 14 Blood Pressure 61/45 L 50/34 L 71/58 L Blood Pressure [Right Arm] Blood Pressure Mean 50 39 59 Blood Pressure Mean [Right Arm] Blood Pressure Source [Right Arm] Blood Pressure Position [Right Arm] 02 Sat by Pulse Oximetry 96 97 95 Oxygen Delivery Method 04/06/24 14:21 04/06/24 14:31 04/06/24 15:00 Temperature Temperature Source Pulse Rate 92 H 70 Pulse Rate [Left Radial] Respiratory Rate 14 18 23 Blood Pressure 81/57 L 88/57 L 101/59 L Blood Pressure [Right Arm] Blood Pressure Mean 62 64 68 Blood Pressure Mean [Right Arm] Blood Pressure Source [Right Arm] Blood Pressure Position [Right Arm] 02 Sat by Pulse Oximetry 96 96 96 Oxygen Delivery Method 04/06/24 15:30 04/06/24 16:00 04/06/24 16:31 Temperature Temperature Source Pulse Rate 75 34 L 73 Pulse Rate [Left Radial] Respiratory Rate 12 15 14 Blood Pressure 100/65 L 96/58 L 76/57 L Blood Pressure [Right Arm] Blood Pressure Mean 75 68 64 Blood Pressure Mean [Right Arm] Blood Pressure Source [Right Arm] Blood Pressure Position [Right Arm] 02 Sat by Pulse Oximetry 91 L 77 L 95 Oxygen Delivery Method 04/06/24 17:00 Temperature Temperature Source Pulse Rate 74 Pulse Rate [Left Radial] Respiratory Rate 21 Blood Pressure 93/68 L Blood Pressure [Right Arm] Blood Pressure Mean Blood Pressure Mean [Right Arm] Blood Pressure Source [Right Arm] Blood Pressure Position [Right Arm] 02 Sat by Pulse Oximetry 93 L Oxygen Delivery Method Lab Data Lab Results 04/06/24 13:00: WBC 10.7, RBC 4.60, Hgb 14.4, Hct 43.3, MCV 94.1 H, MCH 31.4 H, MCHC 33.4, RDW 15.5, Plt Count 292, MPV 7.6, Neut % (Auto) 65.8, Lymph % (Auto) 25.3, [place] % (Auto) 6.6, Eos % (Auto) 1.3, Baso % (Auto) 1.0, Neut # (Auto) 7.0, Lymph # (Auto) 2.7, [place] # (Auto) 0.7, Eos # (Auto) 0.1, Baso # (Auto) 0.1, PT 11.7, INR 1.05, APTT 28.2, D-Dimer 3.46 H, Sodium 132 L, Potassium 3.9, Chloride 90 L, Carbon Dioxide 29, Anion Gap 16.9 H, BUN 23 H, Creatinine 1.40 H, Estimated Creat Clear 57, Estimated GFR 50 L, Est GFR ( Amer) 61, Glucose 202 H, Calcium 7.9 L, Magnesium 0.5 L, Total Bilirubin 0.5, AST 35, ALT 20, Alkaline Phosphatase 86, Troponin I 0.07 H, NT-Pro-B Natriuret Pep 4990 H, Total Protein 7.8, Albumin 4.3, Globulin 3.5 H, Albumin/Globulin Ratio 1.2, HIV 1&2 Antibody Rapid Nonreactive Orders (Tests/Meds): ED MEDICATIONS Discontinued Medications Generic Name Dose Route Start Last Admin Trade Name Freq PRN Reason Stop Dose Admin Digoxin 500 mcg 04/06/24 14:07 04/06/24 14:26 Digoxin 0.25mg/Ml 2ml Ampul IV 04/06/24 14:08 500 mcg ONCE ONE Administration Magnesium Sulfate 2 gm in 50 mls @ 50 mls/hr 04/06/24 14:37 04/06/24 14:40 Magnesium Sulfate 2gm/50ml Premix IV 04/06/24 15:36 50 mls/hr ONCE ONE Administration Calcium Gluconate/Sodium Chloride 2 gm in 100 mls @ 50 mls/hr 04/06/24 14:40 04/06/24 14:44 Calcium Gluconate 2,000mg/100ml Nacl Premix IV 04/06/24 16:39 50 mls/hr ONCE ONE Administration Iopamidol 70 ml 04/06/24 16:29 04/06/24 16:30 Iopamidol-370 (76%);100ml Bottle IV 04/06/24 16:30 70 ml ONCE ONE Administration Metoprolol Tartrate 5 mg 04/06/24 13:39 Metoprolol Tartrate 5mg/5ml Vial IV 05/06/24 13:38 Q5MINP PRN Tachyarrhythmias Sodium Chloride 500 ml 04/06/24 14:02 04/06/24 14:19 Sodium Chloride 0.9% 500ml Bag IV 04/06/24 14:03 500 ml ONCE ONE Administration Sodium Chloride 50 ml 04/06/24 16:29 04/06/24 16:30 0.9 % Sodium Chloride 50 Ml Vial IV 04/06/24 16:30 50 ml ONCE ONE Administration Sodium Chloride 10 ml 04/06/24 16:29 04/06/24 16:30 Sodium Chloride 0.9% 10ml Syr (Rad Only) IV 04/06/24 16:30 10 ml ONCE ONE Administration ORDERS Category Date Time Status CT angio chest PE protocol Stat Cat Scan 04/06/24 14:00 Completed Cardiology Consult [Consult to Cardiology] [CONS] Cons 04/06/24 14:09 Active Routine CXR --portable [XR chest portable] Stat Exams 04/06/24 13:22 Completed BNP [NT Pro Brain Natriuretic Pep.] Stat Lab 04/06/24 13:00 Completed CMP [Comprehensive Metabolic Panel] Stat Lab 04/06/24 13:00 Completed Complete Blood Count Auto Diff Stat Lab 04/06/24 13:00 Completed D-Dimer Stat Lab 04/06/24 13:00 Completed HIV (1&2) Antibody Rapid Stat Lab 04/06/24 13:00 Completed Hep C Ab with Reflex to RNA Stat Lab 04/06/24 13:00 Received MAG [Magnesium] Stat Lab 04/06/24 13:00 Completed PT INR [Prothrombin Time INR] Stat Lab 04/06/24 13:00 Completed PTT [Activated Partial Thrombo Time] Stat Lab 04/06/24 13:00 Completed Trop I [Troponin I] Stat Lab 04/06/24 13:00 Completed Troponin I Q3H Lab 04/06/24 16:32 Received Troponin I Q3H Lab 04/06/24 19:30 Ordered CA echo doppler complete Stat Y 04/06/24 14:07 Completed Medical Decision Narrative: In summary, this patient is a 69-year-old male presenting to the Emergency Department for evaluation of lightheadedness. Differential diagnoses considered include but are not limited to dysrhythmia, electrolyte derangements, dehydration, CHF, ACS. Ruling out the most morbid conditions drove assessment. It should be noted patient's history includes CAD status post stenting, hypertension, hyperlipidemia, diabetes which may or may not be at goal therapy. This complicates all aspects of care by increasing patient's risk for morbidity. I reviewed patient's past medical records and noted patient's most current medication list which shows that he is on aspirin, Plavix, and Brilinta but I do not see any anticoagulation such as with Xarelto, Eliquis, or Coumadin.. On evaluation, patient is in A-fib with RVR with a rate in the 110s to 120s. He is normotensive on my assessment. Otherwise, his exam is reassuring. EKG confirms A-fib with RVR without acute ST changes concerning for ischemia. Workup included broad lab evaluation to evaluate for metabolic versus cardiac causes of his symptoms. Patient denies any known history of A-fib and is not on any true anticoagulants, though he is on antiplatelet drugs. Also unclear how long he has been in A-fib with RVR given that he has had symptoms for months but acutely got worse yesterday. He is not aware of any palpitations or racing heart rate. Given this, I do not feel that cardioversion is safe without first having an echocardiogram. I did review prior echocardiogram from 2022 which showed a grossly normal EF, but he reportedly had a heart attack for which she was admitted in [place] in September of this year. He is, of note, on metoprolol. I independently interpreted x-ray prior to the radiologist read and noted cardiomegaly with concerns for pulmonary edema. Please see their read for final interpretation. Labs were obtained that demonstrated elevated troponin, significantly elevated D-dimer, mild hyponatremia, mild JOSE JUAN, elevated BNP of 4990. He also was found to have significant hypomagnesemia and hypocalcemia, for which IV replacement were ordered. On reassessment, patient continued to have A-fib with RVR with a rate in the low 100s to 120s. His pressure slightly dropped with systolics in the 60s to 70s and relatively low maps. He was given a bolus of IV fluids for fluid challenge, and his blood pressure significantly improved with systolics in the 100s and maps in the 60s as well as heart rate then in the 70s to 80s, still in atrial fibrillation. I had an indirect discussion with cardiology who advised given the patient 0.50 digoxin and obtain a stat echo. These were ordered. [facility] [place] [facility], Dr. Klein, pending CTA for significantly elevated D-dimer and ultimately, admission. Latoya: I assumed primary responsibility for this patient after signout from previous physician. Patient very well-appearing. Borderline hypotensive with systolic blood pressures 95-100. Nontachycardic, rate controlled. Oxygen appropriate on cardiac technologist and on continuous pulse oximetry. Workup independently interpreted, electrolyte disturbances which were repleted. BNP elevated with mild troponin elevation. CT angiogram of the chest was independently interpreted and no acute pulmonary embolus, but he does appear to have pulmonary edema bilaterally concerning for new onset heart failure. Interactive discussion had with hospital medicine, to be admitted for further definitive management and cardiovascular workup with cardiology Critical Care <Griselda Guadarrama, DO - Last Filed: 04/06/24 15:07> Critical Care Time Critical Care Time: Yes Attestation: On 04/06/24, the high probability of a clinically significant, sudden or life threatening deterioration of the following system(s) required my full and direct attention, intervention and personal management. The time I documented below is in addition to time spent performing reported procedures but includes the following listed in this critical care notation. Total Time Total Critical Care Time: 40
--- NOTE | 2024-04-06 13:22 | XR_ITS ---
PROCEDURE INFORMATION: Exam: XR Chest Exam date and time: 04/06/2024 1:26 PM Age: 69 years old Clinical indication: Other: Lightheadedness, new afib TECHNIQUE: Imaging protocol: Radiologic exam of the chest. Views: 1 view. COMPARISON: CT ANGIO CHEST PE PROTOCOL 10/15/2022 6:13 AM FINDINGS: Lungs: There is mild bibasilar scarring versus atelectasis. Otherwise the lungs are clear. Pleural spaces: Unremarkable. No pleural effusion. No pneumothorax. Heart/Mediastinum: Unremarkable. No cardiomegaly. Bones/joints: Unremarkable. IMPRESSION: No significant change or evidence of acute pulmonary process.
[2024-04-06 13:27] LABS: Basophils # 0.1 K/mm3 (0-0.2); Eosinophils # 0.1 K/mm3 (0.0-0.4); Eosinophils % 1.3 % (0.1-12.0); Hematocrit 43.3 % (42.0-52.0); Hemoglobin 14.4 g/dL (14.1-18.0); Lymphocytes # 2.7 K/mm3 (0.7-4.5); Lymphocytes % 25.3 % (10-50); Mean Corpuscular HGB Conc 33.4 g/dL (31.8-35.4); Mean Corpuscular Hemoglobin 31.4 pg (27.0-31.2); Mean Corpuscular Volume 94.1 fl (80-94); Mean Platelet Volume 7.6 fl (7.4-10.4); Monocytes # 0.7 K/mm3 (0.1-1.0); Monocytes % 6.6 % (1.7-9.3); Neutrophils % 65.8 % (37.0-80.0); Platelet Count 292 K/mm3 (142-424); Red Cell Distribution Width 15.5 % (11.5-17.5); White Blood Count 10.7 K/mm3 (4.8-10.8)
--- NOTE | 2024-04-06 13:31 | PC.NURSE ---
PORTABLE CHEST XRAY AT BEDSIDE
[2024-04-06 13:34] LABS: Activated Partial Thrombo Time 28.2 seconds (22.8-30.6); INR 1.05 (0.9-1.1); Prothrombin Time 11.7 seconds (10.1-12.5)
--- NOTE | 2024-04-06 13:36 | PC.NURSE ---
PROVIDED PT WITH WARM BLANKET.
--- NOTE | 2024-04-06 13:37 | PC.NURSE ---
PT RESTING IN BED. CALL LIGHT WITHIN REACH. BED IN LOWEST POSITION. NO QUESTIONS OR CONCERNS VOICED.
--- NOTE | 2024-04-06 13:37 | PC.NURSE ---
Called cardiology for Dr Guadarrama. She is speaking with Mellissa
--- NOTE | 2024-04-06 13:37 | PC.NURSE ---
DR HERMOSILLO IS SPEAKING TO CARDIOLOGY
[2024-04-06 13:38] LABS: Albumin Level 4.3 g/dl (3.5-5.0); Chloride 90 mmol/L (98-107); Potassium 3.9 mmoL/L (3.5-5.1); Sodium 132 mmol/L (136-145)
[2024-04-06 13:41] LABS: Alanine Aminotransferase 20 U/L (12-78); Albumin/Globulin Ratio 1.2 (1.1-1.8); Alkaline Phosphatase 86 U/L (38-126); Anion Gap 16.9 mEq/L (5-15); Aspartate Amino Transferase 35 U/L (17-59); Bilirubin,Total 0.5 mg/dl (0.2-1.3); Blood Urea Nitrogen 23 mg/dl (9-20); Calcium 7.9 mg/dl (8.4-10.2); Carbon Dioxide 29 mmol/L (22.0-30.0); Creatinine Clearance Estimated 57 mL/min (50-200); Estimated Glomerular Filt Rate 50 ml/min (>60); GFR (African American) 61 ML/MIN (>60); Globulin 3.5 g/dL (1.3-3.2); Glucose 202 mg/dl (74-100); Total Protein,Serum 7.8 g/dl (6.3-8.2)
[2024-04-06 13:53] LABS: D-Dimer 3.46 ug/mL (0.0-0.5); Troponin I 0.07 ng/ml (0.00-0.034)
--- NOTE | 2024-04-06 14:00 | CT_ITS ---
PROCEDURE INFORMATION: Exam: CTA Chest With Contrast Exam date and time: 04/06/2024 4:15 PM Age: 69 years old Clinical indication: Other: Tachycardia, lightheaded, elevated dimer TECHNIQUE: Imaging protocol: Computed tomographic angiography of the chest with contrast. Exam focused on the arteries. 3D rendering (Not supervised by radiologist): MIP and/or 3D reconstructed images were created by the technologist. Radiation optimization: All CT scans at this facility use at least one of these dose optimization techniques: automated exposure control; mA and/or kV adjustment per patient size (includes targeted exams where dose is matched to clinical indication); or iterative reconstruction. Contrast material: ISO 370; Contrast volume: 70 ml; Contrast route: INTRAVENOUS (IV); COMPARISON: CT ANGIO CHEST PE PROTOCOL 10/15/2022 6:13 AM FINDINGS: Pulmonary arteries: No evidence of pulmonary embolism. Aorta: Aorta is normal in caliber with a moderate amount of calcified atherosclerotic plaque. Lungs: Interstitial lung disease with patchy areas of subpleural interstitial pulmonary fibrosis, not significantly progressed from 10/15/2022 exam. No focal airspace consolidation. No pulmonary edema. Few calcified pulmonary granulomata consistent with chronic sequelae of prior granulomatous disease, unchanged. Pleural spaces: No pneumothorax. No pleural effusion. Heart: Left atrial enlargement suggestive of diastolic heart dysfunction and/or mitral valve insufficiency, grossly unchanged from prior exam. No evidence of atrial appendage thrombus. Cardiac chamber size is otherwise within normal limits. Additional chronic cardiac findings are also unchanged, including aortic valve calcifications and calcific coronary artery disease. No significant pericardial effusion. Reflux of intravenous contrast into the hepatic veins and IVC suggestive of increased right heart pressures and/or right heart dysfunction vs tricuspid regurgitation. Lymph nodes: Unremarkable. Bones/joints: Multi-level bridging and/or beaked disc osteophytes throughout the thoracic spine compatible with diffuse idiopathic skeletal hyperostosis (DISH), unchanged. No evidence of acute osseous abnormality. Soft tissues: Unremarkable. IMPRESSION: 1. No evidence of pulmonary embolism or other acute process in the chest. 2. Left atrial enlargement suggestive of diastolic heart dysfunction and/or mitral valve insufficiency, grossly unchanged from prior exam. 3. Reflux of intravenous contrast into the hepatic veins and IVC suggestive of increased right heart pressures and/or right heart dysfunction vs tricuspid regurgitation. 4. Interstitial lung disease with patchy areas of subpleural interstitial pulmonary fibrosis, not significantly progressed from 10/15/2022 exam. 5. Additional chronic ancillary findings are also unchanged from prior exam, as detailed above.
--- NOTE | 2024-04-06 14:07 | CA_ITS ---
APPROVED REPORT EXAM: Comprehensive 2D, Doppler, and color-flow Echocardiogram Senior Case Manager: Irma Cantu RVT Ht: 5 ft 6 in Wt: 179lbs BSA: 1.91 BP: 87/68 mmHg Indications: A-FIB,CAD,HTN,HLD,DM TDS-PT IN [place] POSITION FLAT ON BACK 2D Dimensions IVSd 1.07 cm M: 0.6-1.2 LVEF (Visual) 63.40 % PWd 1.00 cm M: 0.6 - 1.2 LA Volume 101.90 mL LVDd 4.20 cm M: 4.2 - 5.9 LA Volume Index 53.35 mL/m2 (M/F) 16-34 LVDs 2.77 cm M: 2.5 - 4.0 M-Mode Dimensions LA Diam 3.92 cm (1.9-4.0) TAPSE 1.94 (<1.7) Aortic Valve BRYNN Index 0.89 cm2/m2 AoV Peak Sahil. 150.0 (50-130 cm/s) AO Peak GR. 9.00 mmHg AO Mean GR. 5.50 (<5 mmHg) AO VTI 28.4 (18-25 cm) BRYNN (VTI) 1.73 (2.5-4.5 cm2) Pulmonary Valve PV Peak Velocity 56.0 (50-150 cm/s) Left Ventricle The left ventricle is normal size. Left ventricular systolic function is mildly decreased. There is increased LV wall thickness. The septum is asynchronous. Diastolic function is indeterminate. LVEF is 45%. Right Ventricle The right ventricle is normal size. The right ventricular systolic function is normal. Atria The left atrium is moderately dilated. Right atrium is mildly dilated. There is no Doppler evidence of interatrial shunt. Aortic Valve The aortic valve is mildly thickened. Trace aortic regurgitation. There is no aortic valvular stenosis. Mitral Valve The mitral valve leaflets are mildly thickened. No evidence of mitral valve stenosis. Trace mitral regurgitation. Tricuspid Valve The tricuspid valve leaflets are thin and pliable. Trace tricuspid regurgitation. There is insufficient TR jet to estimate RVSP. Pulmonic Valve The pulmonary valve is normal in structure. Trace pulmonic regurgitation. Great Vessels The aortic root is not well-visualized. The IVC is not well-visualized. The Pericardium There is no pericardial effusion. Other Information Study Quality: Fair Conclusion Mildly reduced LV systolic function (LVEF 45%). Asynchronous septum. Biatrial dilation. No significant valvular stenosis or regurgitation. Electronically signed by : Lorraine Koroma MD 04/06/2024 23:06:02
[2024-04-06] MEDS: SODIUM CHLORIDE 0.9% 500ML BAG 500 ML IV (14:19)
[2024-04-06] MEDS: DIGOXIN 0.25MG/ML 2ML AMPUL 500 MCG IV (14:26)
[2024-04-06 14:27] LABS: HIV (1&2) Antibody Rapid NONREACTIVE (NONREACTIVE)
[2024-04-06 14:29] LABS: NT Pro Brain Natriuretic Pep. 4990 pg/mL (0-125)
[2024-04-06 14:37] LABS: Magnesium 0.5 mg/dl (1.6-2.3)
[2024-04-06] MEDS: MAGNESIUM SULFATE IN WATER 2 GM/50 ML PIGGYBACK IV ×2 (14:40→21:34)
[2024-04-06] MEDS: CALCIUM GLUC IN NACL, ISO-OSM 2 GM/100 ML BAG IV (14:44)
[2024-04-06] MEDS: SODIUM CHLORIDE 0.9% 10ML SYR (RAD ONLY) 10 ML IV (16:30)
[2024-04-06] MEDS: IOPAMIDOL-370 (76%);100ML BOTTLE 70 ML IV (16:30)
[2024-04-06] MEDS: 0.9 % SODIUM CHLORIDE 50 ML VIAL IV (16:30)
[2024-04-06 16:59] LABS: Troponin I 0.07 ng/ml (0.00-0.034)
--- NOTE | 2024-04-06 18:23 | PC.NURSE ---
CALLED REPORT TO MAYLIN GROVER
--- NOTE | 2024-04-06 18:35 | PC.NURSE ---
pt arrived to floor via w/c @ 1835.
--- NOTE | 2024-04-06 18:39 | P.HP_ITS ---
History of Present Illness *Admission Date: 04/06/24 *Reason for visit:: Dizziness *History of present illness: Noah willoughby is a 69-year-old male with a medical history significant for CAD s/p 2 stents recently, type 2 diabetes, current tobacco smoker, BPH, GERD who presents with dizziness ongoing for 2 weeks. He states he had 2 stents placed at [facility] about 2 weeks ago. Shortly after discharge, he experienced trouble breathing and went to [facility] who transferred him to [facility]. He cannot recall what workup or what they did there. He was discharged and recently followed up with his PCP on 04/02/2024. At his visit, he continued to have intermittent shortness of breath and his Lasix regimen was increased from 40 mg to 80 mg until dyspnea on increases. Blood pressure at that time was 92/58, and due to this concern Coreg was held. Patient continued to experience dizziness and proceeded to our ED. Initial vital signs HR 116 (A-fib), blood pressure 87/68. Cardiology was consulted by the ED, and they recommended IV digoxin 500 mcg for rate controlled in the setting of hypotension. Patient's heart rate improved to 74, and she converted back to sinus rhythm. However he he is currently back in A-fib but ra te controlled. Current pressure 108/71. Looks comfortable, conversational, pleasant. Workup in the ED significant for magnesium 0.5, creatinine 1.4 (baseline is around 1.0) AGAP 16.9, troponin 0.07, BNP 4990. Denies chest pain, shortness of breath. Case discussed with ED provider and decision was made to admit patient for new onset A-fib with RVR, elevated troponins, hypomagnesemia. [facility] Disclaimer: The information contained in this section may have been updated after the patient was seen, as this information can be updated by other users. Medical History Heart attack Abnormal electrocardiogram [ECG] [EKG] DM type 2 (diabetes mellitus, type 2) HLD (hyperlipidemia) HTN (hypertension) Coronary artery disease Coronary artery calcification seen on CAT scan Social History (Updated 04/06/24 @ 18:48 by Jeimy Brock RN) Smoking Status: Current every day smoker tobacco type: cigarettes and pipe alcohol intake: current current occupational status: retired Travel in the last 8 weeks: None Other Medical History Have you received the Flu Vaccine for this season: No Have you received the Pneumonia Vaccine: Yes Meds Home Medications and Allergies Home Medications ?Medication ?Instructions ?Recorded ?Confirmed ?Type aspirin 81 mg tablet 81 mg PO DAILY 10/16/22 04/02/24 History clopidogrel 75 mg tablet 75 mg PO DAILY Blood thinner #90 02/03/24 04/02/24 Rx tabs empagliflozin 25 mg tablet 25 mg PO DAILY Diabetes #90 tabs 02/03/24 04/02/24 Rx (Jardiance) gabapentin 800 mg tablet 800 mg PO QID Pain #360 tabs 02/03/24 04/02/24 Rx lisinopril 20 mg tablet 20 mg PO DAILY High blood pressure 02/03/24 04/02/24 Rx #90 tabs metformin 1,000 mg tablet 1,000 mg PO BID Diabetes #180 tabs 02/03/24 04/02/24 Rx omeprazole 40 mg capsule,delayed 40 mg PO DAILY gerd #90 caps 02/03/24 04/02/24 Rx release sitagliptin phosphate 100 mg 100 mg PO DAILY Diabetes #90 tabs 02/03/24 04/02/24 Rx tablet (Januvia) tamsulosin 0.4 mg capsule 0.4 mg PO HS prostate #90 caps 02/03/24 04/02/24 Rx nitroglycerin 0.4 mg sublingual 0.4 mg sublingual Q5-15M PRN chest 03/02/24 04/02/24 Rx tablet pain #30 tabs atorvastatin 80 mg tablet 80 mg PO HS 90 days #90 tabs 04/02/24 04/02/24 Rx furosemide 40 mg tablet 40 mg PO DAILY 90 days #90 tabs 04/02/24 04/02/24 Rx metoprolol tartrate 25 mg tablet 25 mg PO BID 90 days #180 tabs 04/02/24 04/02/24 Rx ticagrelor 90 mg tablet (Brilinta) 90 mg PO BID 90 days #180 tabs 04/02/24 04/02/24 Rx New Prescriptions to Start Prescriptions: Allergies Allergy/AdvReac Type Severity Reaction Status Date / Time No Known Allergies Allergy Verified 04/06/24 13:16 Exam Data for Last 24 hours Vital signs and Labs for Last 24 Hours: Temp Pulse Resp BP Pulse Ox O2 Del Method 97.9 F 74 18 108/71 L 96 Room Air 04/06/24 12:52 04/06/24 18:05 04/06/24 18:05 04/06/24 18:05 04/06/24 18:05 04/06/24 12:52 Laboratory Results - last 24 hr 04/06/24 13:00: WBC 10.7, RBC 4.60, Hgb 14.4, Hct 43.3, MCV 94.1 H, MCH 31.4 H, MCHC 33.4, RDW 15.5, Plt Count 292, MPV 7.6, Neut % (Auto) 65.8, Lymph % (Auto) 25.3, [place] % (Auto) 6.6, Eos % (Auto) 1.3, Baso % (Auto) 1.0, Neut # (Auto) 7.0, Lymph # (Auto) 2.7, [place] # (Auto) 0.7, Eos # (Auto) 0.1, Baso # (Auto) 0.1, PT 11.7, INR 1.05, APTT 28.2, D-Dimer 3.46 H, Sodium 132 L, Potassium 3.9, Chloride 90 L, Carbon Dioxide 29, Anion Gap 16.9 H, BUN 23 H, Creatinine 1.40 H, Estimated Creat Clear 57, Estimated GFR 50 L, Est GFR ( Amer) 61, Glucose 202 H, Calcium 7.9 L, Magnesium 0.5 L, Total Bilirubin 0.5, AST 35, ALT 20, Alkaline Phosphatase 86, Troponin I 0.07 H, NT-Pro-B Natriuret Pep 4990 H, Total Protein 7.8, Albumin 4.3, Globulin 3.5 H, Albumin/Globulin Ratio 1.2, HIV 1&2 Antibody Rapid Nonreactive 04/06/24 16:32: Troponin I 0.07 H I & O for Last 24 hours: Intake & Output 04/03/24 04/04/24 04/05/24 04/06/24 23:59 23:59 23:59 23:59 Weight 81.193 kg Constitutional Constitutional: no acute distress *Routine HEENT Exam Head: Present normocephalic Eye: Present EOMI and PERRL ENT: Present mucous membranes moist *Routine Neck Exam Neck: Present supple; Absent lymphadenopathy *Routine Respiratory Exam Respiratory: Present CTA bilaterally *Routine Cardiovascular Exam Cardiovascular: Present RRR and irregular rhythm *Routine Abdominal Exam Abdominal: Present soft and normoactive bowel sounds; Absent tenderness *Routine Rectal Exam Rectal:: deferred *Routine Genitalia Exam Genitalia:: deferred *Routine Extremities Exam Extremities: Absent cyanosis, clubbing or edema *Routine Skin Exam Skin: Present warm; Absent rash *Routine Neurological Exam Neurological: Present alert and oriented X3 Assessment and Plan *Assessment and plan (1) NSTEMI (non-ST elevated myocardial infarction): Status: Acute Category: Medical Code(s): I21.4 - Non-ST elevation (NSTEMI) myocardial infarction (2) Elevated troponin: Status: Acute Category: Medical Code(s): R79.89 - Other specified abnormal findings of blood chemistry (3) Hypomagnesemia: Status: Acute Category: Medical Code(s): E83.42 - Hypomagnesemia (4) Atrial fibrillation with RVR: Status: Acute Category: Medical Code(s): I48.91 - Unspecified atrial fibrillation (5) DM type 2 (diabetes mellitus, type 2): Status: Acute Qualifiers: Diabetes mellitus custodial insulin use: unspecified duct cleaner insulin use status Diabetes mellitus complication status: with other specified complication Qualified Code(s): E11.69 - Type 2 diabetes mellitus with other specified complication Category: Medical Code(s): E11.9 - Type 2 diabetes mellitus without complications (6) Coronary artery disease: Status: Chronic Qualifiers: Coronary Disease-Associated Artery/Lesion type: [place] artery [place] vs. transplanted heart: [place] heart Associated angina: with other forms of angina Qualified Code(s): I25.118 - Atherosclerotic heart disease of [place] coronary artery with other forms of angina pectoris Category: Medical Code(s): I25.10 - Atherosclerotic heart disease of [place] coronary artery without angina pectoris Plan Noah willoughby is a 69-year-old male with a medical history significant for CAD s/p 2 stents recently, type 2 diabetes, current tobacco smoker, BPH, GERD who presents with dizziness ongoing for 2 weeks. He states he had 2 stents placed at [facility] about 2 weeks ago. Shortly after discharge, he experienced trouble breathing and went to [facility] who transferred him to [facility]. He cannot recall what workup or what they did there. He was discharged and recently followed up with his PCP on 04/02/2024. At his visit, he continued to have intermittent shortness of breath and his Lasix regimen was increased from 40 mg to 80 mg until dyspnea on increases. Blood pressure at that time was 92/58, and due to this concern Coreg was held. Patient continued to experience dizziness and proceeded to our ED. Initial vital signs HR 116 (A-fib), blood pressure 87/68. Cardiology was consulted by the ED, and they recommended IV digoxin 500 mcg for rate controlled in the setting of hypotension. Patient's heart rate improved to 74, and she converted back to sinus rhythm. However he he is currently back in A-fib but rate controlled. Current pressure 108/71. Looks comfortable, conversational, pleasant. Workup in the ED significant for magnesium 0.5, creatinine 1.4 (baseline is around 1.0) AGAP 16.9, troponin 0.07, BNP 4990. CTA chest shows reflex of IV contrast into the hepatic veins and IVC, left atrial enlargement. Denies chest pain, shortness of breath. Case discussed with ED provider and decision was made to admit patient for new onset A-fib with RVR, elevated troponins, hypomagnesemia. #NSTEMI, undetermined type at this time #History of CAD s/p 2 stents ? Recently had 2 stents placed about 2 weeks ago at [facility]. ? Presents with lightheadedness. ? Initial troponin 0.07, EKG shows T wave inversions in leads II, III, V5, V6 compared to EKG in 2022. This may be sequela of recent NSTEMI s/p 2 stents 2 weeks ago. ? Currently chest pain-free, no shortness of breath. ? Troponinemia may be sequela of recent PCI. ? However, patient has significant risk factors including longstanding smoking history, diabetes. As such, will start heparin drip. ? Heparin drip until cardiology evaluation tomorrow. ? Follow-up ECHO. ? Follow-up troponins, serial EKGs. ? Follow-up outside medical records from [facility]. ? Resumed home aspirin 81 mg, Brilinta 90 mg twice daily. ? Cardiology consulted, pending recommendations. #New onset A-fib #RVR resolved ? Initial heart rate 116, responded well to digoxin 500 mcg per cardiology recommendations in the ED. ? Currently still in A-fib, but rate controlled HR 74. ? Etiology may be multifactorial with hypomagnesemia 0.5, recently holding Coreg in the setting of soft blood pressures, recent PCI, evidence of heart failure on CTA. ? Continue holding Coreg at this time with evidence of right heart failure with reflux on CTA and soft pressures. No exam evidence of volume overload at this time. ? Continue digoxin 62.5 mcg starting tomorrow. ? IV heparin drip for this time for anticoagulation. ? Follow-up ECHO. ? Pending further cardiology recommendations. #Elevated BNP #Suspected heart failure ? Initial BNP 4990, with evidence of contrast reflux into IVC on CTA but this is a nonspecific finding. ? Currently does not seem to be volume overloaded on exam. ? Elevated BNP may be in the setting of A-fib RVR. ? Will hold off on diuresis at this time given soft pressures, pending echo r esults. ? If soft pressures are from significant right heart failure, will benefit from inotropes such as digoxin as above. ? Follow-up ECHO. ? Pending further cardiology recommendations. #Hypomagnesemia ? Initial magnesium 0.5. Given IV magnesium 2 g in the ED. ? Will give additional IV 2 g. Potassium 3.9. #JOSE JUAN ? Initial creatinine 1.4, baseline around 1.0. ? Patient does not seem to be volume overloaded at this time to suggest cardiorenal. ? Will hold off on diuresis and fluids at this time pending ECHO. ? Continue to monitor renal function. #Pulmonary fibrosis ? Seen on CTA chest. ? Consulted pulmonology to establish care. #Type 2 diabetes ? ACHS glucose checks, LDSSI. #Current tobacco smoker ? Nicotine patch as needed. #GERD ? Resume home PPI. #BPH ? Continue home tamsulosin. DNR/DNI DVT prophylaxis: Heparin drip
[2024-04-06] MEDS: HEPARIN DRIP CONSULT 1 EACH NOTAPPLIC (20:20)
[2024-04-06 20:29] LABS: PTT Heparin (inpatient only) 27.4 Seconds (50-75)
[2024-04-06 20:30] LABS: Troponin I 0.07 ng/ml (0.00-0.034)
[2024-04-06] MEDS: HEPARIN SODIUM,PORCINE/D5W 500 ML 19 UNIT IV (20:42)
[2024-04-06] MEDS: HEPARIN SODIUM 5,000 UNIT/ML VIAL 4000 UNIT IV (20:42)
[2024-04-06] MEDS: ATORVASTATIN 40MG TABLET 80 MG PO (21:47)
[2024-04-06] MEDS: TICAGRELOR 90MG TABLET 90 MG PO (21:48)
--- NOTE | 2024-04-06 21:50 | PC.NURSE ---
patient refused HS insulin w/ FSBS 198 - stated his sugar has been 300 and he's never needed insulin before. Patient educated his glucose is elevated but he has the right to refuse. Patient verbalized understanding.
--- NOTE | 2024-04-06 23:17 | PC.NURSE ---
patient has remained hypotensive between 1899 and now (2314). Hospitalist notified, see VS. patient denies any CP, SOA, dizziness, etc and is resting in bed.
[2024-04-07] VITALS (13 sets, daily range): BP systolic 69–117; BP diastolic 35–72; PULSE 70–104; RESP 16–24; TEMP 36.3–36.7; O2SAT 93–100; BMI 28.3
--- NOTE | 2024-04-07 00:46 | PC.NURSE ---
Addendum entered by Donato Sosa RN 04/07/24 01:57: Hospitalist stated he contacted [facility], with orders to monitor and let be as long as patient was comfortable and asymptomatic. Addendum entered by Donato Sosa RN 04/07/24 00:58: 500 ML bolus ordered and infusing Original Note: patient is hypotensive with MAP's in the 40's, asymptomatic, and Hospitalist notified. SEE VS
--- NOTE | 2024-04-07 00:49 | EXP.EVENT.NO ---
Problem: Low blood pressure while sleeping MAP going down to as low as 45, sometimes will come back up to 68, also noted he is deeply asleep saturations began to drop 1 L placed on him brought saturations back up to 95 did not affect blood pressure. Exam patient sleeping comfortably respirations regular presently on 1 L O2 sats are 97, no sign of any respiratory difficulty., Skin is of normal color Plan; patient was given 500 cc normal saline at 2:00 today I am going to go ahead and repeat that to see if it will bring up his blood pressure to trying to keep the MAP near 65. Without adding any type of pressors. Examination of his CT of the chest and the lungs showed normal was no signs of any fluid overload so feel comfortable giving 500 cc. Examination of the cardiac echo showed decreased LV function about 45%, noted the right ventricle appeared to be normal on the echo but showed some form of strain on the CT scan reading. Will continue with monitoring the patient throughout the night if much more needs to be done 01:40 patient remains sleeping well resting comfortably heart rate remained stable, patient is very deep asleep I can come into the room he does not arouse respirations are regular and equal, I was able to talk to Dr. Jhaveri about another patient told about this patient., Of the blood pressure being low with a MAP being less than 65., Dr. Jhaveri said he was not concerned as long as the patient was comfortable not having any symptoms and was sleeping deeply that we did not did not need to do anything at this time. Previously I had given him an extra 500 cc of normal saline this had absolutely no effect on his blood pressure,. the patient does not seem to be dry. Records from [place] have been received. Patient was status post stent in the recent past. Patient was placed on a heparin drip there and his medications were slightly adjusted to Lipitor be taken at night aspirin Brilinta metoprolol already and's lisinopril echocardiogram showed an ejection fraction of 50% ?5% out there was normal left ventricular systolic function but had a grade 3 dystonic dysfunction but there was no hemodynamically significant valvular heart disease.
[2024-04-07] MEDS: 0.9 % SODIUM CHLORIDE 1000ML 500 ML IV (00:56)
[2024-04-07 02:08] LABS: PTT Heparin (inpatient only) 45.4 Seconds (50-75)
[2024-04-07] MEDS: HEPARIN SODIUM 5,000 UNIT/ML VIAL 3000 UNIT IV (02:19)
[2024-04-07] MEDS: HEPARIN SODIUM,PORCINE/D5W 500 ML 22 UNIT IV (02:19)
[2024-04-07 05:31] LABS: POC Glucose,Bedside 147 (70-110)
[2024-04-07 06:07] LABS: POC Glucose,Bedside 198 (70-110)
[2024-04-07 06:42] LABS: Basophils # 0.1 K/mm3 (0-0.2); Eosinophils # 0.1 K/mm3 (0.0-0.4); Eosinophils % 1.4 % (0.1-12.0); Hematocrit 39.6 % (42.0-52.0); Hemoglobin 13.3 g/dL (14.1-18.0); Lymphocytes # 2.4 K/mm3 (0.7-4.5); Lymphocytes % 28.9 % (10-50); Mean Corpuscular HGB Conc 33.5 g/dL (31.8-35.4); Mean Corpuscular Hemoglobin 31.2 pg (27.0-31.2); Mean Platelet Volume 7.6 fl (7.4-10.4); Monocytes # 0.7 K/mm3 (0.1-1.0); Monocytes % 8.2 % (1.7-9.3); Neutrophils % 60.5 % (37.0-80.0); Platelet Count 287 K/mm3 (142-424); Red Blood Count 4.26 M/mm3 (4.60-6.20); Red Cell Distribution Width 15.7 % (11.5-17.5); White Blood Count 8.3 K/mm3 (4.8-10.8)
[2024-04-07 06:45] LABS: Alanine Aminotransferase 13 U/L (12-78); Albumin Level 3.6 g/dl (3.5-5.0); Albumin/Globulin Ratio 1.2 (1.1-1.8); Alkaline Phosphatase 84 U/L (38-126); Anion Gap 12.6 mEq/L (5-15); Aspartate Amino Transferase 30 U/L (17-59); Bilirubin,Total 0.6 mg/dl (0.2-1.3); Blood Urea Nitrogen 14 mg/dl (9-20); Calcium 8.2 mg/dl (8.4-10.2); Carbon Dioxide 28 mmol/L (22.0-30.0); Chloride 95 mmol/L (98-107); Chol/HDL Ratio 2.2 (1-3.5); Cholesterol 116 mg/dl (140-200); Creatinine Clearance Estimated 79 mL/min (50-200); Estimated Glomerular Filt Rate 74 ml/min (>60); GFR (African American) 90 ML/MIN (>60); Globulin 3.1 g/dL (1.3-3.2); Glucose 119 mg/dl (74-100); HDL Cholesterol 53 mg/dl (40-60); Magnesium 1.5 mg/dl (1.6-2.3); Potassium 3.6 mmoL/L (3.5-5.1); Sodium 132 mmol/L (136-145); Total Protein,Serum 6.7 g/dl (6.3-8.2); Triglycerides 60 mg/dl (30-150); VLDL Cholesterol 12 mg/dL (0-40)
[2024-04-07 06:55] LABS: Direct LDL Cholesterol 49.03 mg/dL (100-129)
--- NOTE | 2024-04-07 08:10 | HMH.PHAINT1 ---
Pharmacy Intervention Comments: HOME MEDICATIONS VERIFIED VIA OUTPATIENT PHARMACY
[2024-04-07 08:21] LABS: HCV Ab Non Reactive (Non Reactive)
--- NOTE | 2024-04-07 08:32 | P.CONPHA_ITS ---
[facility] Pharmacy Heparin Dosing Demographic Data Admission date:: 04/06/24 Date: 04/07/24 Time: 08:32 Allergies Allergy/AdvReac Type Severity Reaction Status Date / Time No Known Allergies Allergy Verified 04/06/24 13:16 Height: 1.68 m Weight: 80.15 kg Indication Medication therapy:: Heparin Current Indications:: ATRIAL FIBRILLATION - MEDIUM DOSE PROTOCOL Current Active Problems (Updated 04/07/24 @ 12:24 by Obie Brown MD) Fibrosis of lung (Acute) NSTEMI (non-ST elevated myocardial infarction) (Acute) CHF exacerbation (Acute) Elevated troponin (Acute) Hypomagnesemia (Acute) Weakness (Acute) Atrial fibrillation with RVR (Acute) Abnormal electrocardiogram [ECG] [EKG] (Acute) DM type 2 (diabetes mellitus, type 2) (Acute) HLD (hyperlipidemia) (Acute) HTN (hypertension) (Acute) Coronary artery disease (Chronic) CVA?: No Bleeding problem?: No Kidney disease?: No NE?: No Desired PTT range:: 50-75 seconds Comments:: BASELINE PTT: 28.2 SECONDS/27.4 SECONDS Labs Anticoagulation Lab Results:: 04/06/24 04/07/24 13:00 05:35 Hgb 14.4 13.3 L Hct 43.3 39.6 L Plt Count 292 287 Monitoring Dose Monitor 1: Date: 04/06/24 Time: 20:23 PTT Result:: BASELINE PTT: 28.2 SECONDS/27.4 SECONDS - WAS DRAWN TWICE YESTERDAY. Infusion Rate:: RECOMMEND INITIATING HEPARIN DRIP AT 950 UNITS/HOUR = 19 ML/HOUR AND BOLUS 4000 UNITS HEPARIN IV ONCE. Comment:: PLATELET COUNT = 292,000 Dose Monitor 2: Date: 04/07/24 Time: 02:00 PTT Result:: 45.4 SECONDS Infusion Rate:: RECOMMEND INCREASING HEPARIN DRIP RATE TO 1100 UNITS/HOUR = 22 ML/HOUR AND BOLUSING 3000 UNITS HEPARIN IV ONCE. Dose Monitor 3: Date: 04/07/24 Time: 08:30 PTT Result:: 67.5 SECONDS Infusion Rate:: RECOMMEND CONTINUING CURRENT HEPARIN DRIP RATE OF 1100 UNITS/HOUR = 22 ML/HOUR Comment:: PLATELET COUNT = 287,000 Core Measures Is INR > or = 2 at discharge?: No Most Recent Labs:: Laboratory Results - last 24 hr 04/06/24 13:00: WBC 10.7, RBC 4.60, Hgb 14.4, Hct 43.3, MCV 94.1 H, MCH 31.4 H, MCHC 33.4, RDW 15.5, Plt Count 292, MPV 7.6, Neut % (Auto) 65.8, Lymph % (Auto) 25.3, [place] % (Auto) 6.6, Eos % (Auto) 1.3, Baso % (Auto) 1.0, Neut # (Auto) 7.0, Lymph # (Auto) 2.7, [place] # (Auto) 0.7, Eos # (Auto) 0.1, Baso # (Auto) 0.1, PT 11.7, INR 1.05, APTT 28.2, D-Dimer 3.46 H, Sodium 132 L, Potassium 3.9, Chloride 90 L, Carbon Dioxide 29, Anion Gap 16.9 H, BUN 23 H, Creatinine 1.40 H, Estimated Creat Clear 57, Estimated GFR 50 L, Est GFR ( Amer) 61, Glucose 202 H, Calcium 7.9 L, Magnesium 0.5 L, Total Bilirubin 0.5, AST 35, ALT 20, Alkaline Phosphatase 86, Troponin I 0.07 H, NT-Pro-B Natriuret Pep 4990 H, Total Protein 7.8, Albumin 4.3, Globulin 3.5 H, Albumin/Globulin Ratio 1.2, Hepatitis C Antibody Non reactive, HIV 1&2 Antibody Rapid Nonreactive 04/06/24 16:32: Troponin I 0.07 H 04/06/24 19:55: APTT 27.4 L, Troponin I 0.07 H 04/06/24 21:50: POC Glucose 198 H 04/07/24 01:45: APTT 45.4 L 04/07/24 05:01: POC Glucose 147 H 04/07/24 05:35: WBC 8.3, RBC 4.26 L, Hgb 13.3 L, Hct 39.6 L, MCV 93.0, MCH 31.2, MCHC 33.5, RDW 15.7, Plt Count 287, MPV 7.6, Neut % (Auto) 60.5, Lymph % (Auto) 28.9, [place] % (Auto) 8.2, Eos % (Auto) 1.4, Baso % (Auto) 1.0, Neut # (Auto) 5.0, Lymph # (Auto) 2.4, [place] # (Auto) 0.7, Eos # (Auto) 0.1, Baso # (Auto) 0.1, Sodium 132 L, Potassium 3.6, Chloride 95 L, Carbon Dioxide 28, Anion Gap 12.6, BUN 14 D, Creatinine 1.00 D, Estimated Creat Clear 79, Estimated GFR 74, Est GFR ( Amer) 90 D, Glucose 119 H D, Calcium 8.2 L, Magnesium 1.5 L D, Total Bilirubin 0.6, AST 30, ALT 13 D, Alkaline Phosphatase 84, Total Protein 6.7, Albumin 3.6 D, Globulin 3.1, Albumin/Globulin Ratio 1.2, Triglycerides 60, Cholesterol 116 L, LDL Cholesterol Direct 49.03 L, VLDL Cholesterol 12, HDL Ch olesterol 53, Cholesterol/HDL Ratio 2.2 If INR was < than 2.0 why was therapy stopped?: PATIENT SENT HOME ON XARELTO Were Heparin and Warfarin started on the same day?: No If not, why?: PATIENT SENT HOME ON XARELTO
[2024-04-07 08:51] LABS: PTT Heparin (inpatient only) 67.5 Seconds (50-75)
[2024-04-07] MEDS: TICAGRELOR 90MG TABLET 90 MG PO (10:33)
[2024-04-07] MEDS: ASPIRIN EC 81MG TABLET 81 MG PO (10:33)
[2024-04-07] MEDS: DIGOXIN 0.125MG TABLET 62.5 MCG PO (10:33)
[2024-04-07] MEDS: GABAPENTIN 800MG TABLET 800 MG PO (10:34)
[2024-04-07] MEDS: EMPAGLIFLOZIN 10MG TABLET 25 MG PO (10:34)
--- NOTE | 2024-04-07 10:49 | P.CONS_ITS ---
History of Present Illness History of present illness: Ms. Castro is a 69-year-old male history of tobacco abuse, CAD status post stenting type 2 diabetes mellitus scented to ER with worsening respiratory distress and pulmonary was called for further evaluation and management. Current smoker greater than [id number] smoking history smoking 2 packs a day. Denies any respiratory symptoms at baseline. Not using any oxygen supplementation. Not using any inhalers. [facility] Disclaimer: The information contained in this section may have been updated after the patient was seen, as this information can be updated by other users. Medical History (Updated 04/07/24 @ 12:24 by Obie Brown MD) Fibrosis of lung Heart attack Abnormal electrocardiogram [ECG] [EKG] DM type 2 (diabetes mellitus, type 2) HLD (hyperlipidemia) HTN (hypertension) Coronary artery disease Coronary artery calcification seen on CAT scan Social History (Updated 04/06/24 @ 18:48 by Jeimy Brock RN) Smoking Status: Current every day smoker tobacco type: cigarettes and pipe alcohol intake: current current occupational status: retired Travel in the last 8 weeks: None Review of Systems Constitutional Constitutional: Reports anorexia, Reports body ache(s) and Reports fatigue Eyes Eyes: Denies eye discharge, Denies dry eyes, Denies irritation and Denies itchy eyes ENT Ears, Nose, Mouth, and Throat: Denies epistaxis, Denies facial pain, Denies lip swelling and Denies throat swelling *Cardiovascular Cardiovascular: Denies dyspnea and Reports dyspnea on exertion *Respiratory Respiratory: Denies change in phlegm color, Reports chest congestion, Reports cough, Denies dyspnea, Reports dyspnea on exertion, Denies excessive phlegm production, Denies hemoptysis, Denies pain on inspiration, Denies pain with cough and Denies wheezing *Gastrointestinal Gastrointestinal: Denies abdominal pain, Denies belching and Denies cramping *Musculoskeletal Musculoskeletal: Reports back pain, Reports myalgias and Reports other (No small joint swelling or Pain) Psychiatric Psychiatric: Denies homicidal ideation and Denies suicidal ideation Endocrine Endocrine: Reports fatigue and Denies heat intolerance Hematologic/Lymphatic Hematologic/Lymphatic: Denies easy bleeding and Denies lymphadenopathy Allergic/Immunologic Allergic/Immunologic: Denies itchy eyes, Denies lip swelling, Denies throat swelling and Denies wheezing Pulmonology Exam Inpatient Vital signs and Labs for Last 24 Hours: Temp Pulse Resp BP Pulse Ox O2 Del Method O2 Flow Rate 97.4 F L 80 16 110/70 97 Room Air 1 04/07/24 08:00 04/07/24 10:33 04/07/24 08:00 04/07/24 08:00 04/07/24 08:00 04/07/24 08:50 04/07/24 04:38 Laboratory Results - last 24 hr 04/06/24 13:00: WBC 10.7, RBC 4.60, Hgb 14.4, Hct 43.3, MCV 94.1 H, MCH 31.4 H, MCHC 33.4, RDW 15.5, Plt Count 292, MPV 7.6, Neut % (Auto) 65.8, Lymph % (Auto) 25.3, [place] % (Auto) 6.6, Eos % (Auto) 1.3, Baso % (Auto) 1.0, Neut # (Auto) 7.0, Lymph # (Auto) 2.7, [place] # (Auto) 0.7, Eos # (Auto) 0.1, Baso # (Auto) 0.1, PT 11.7, INR 1.05, APTT 28.2, D-Dimer 3.46 H, Sodium 132 L, Potassium 3.9, Chloride 90 L, Carbon Dioxide 29, Anion Gap 16.9 H, BUN 23 H, Creatinine 1.40 H, Estimated Creat Clear 57, Estimated GFR 50 L, Est GFR ( Amer) 61, Glucose 202 H, Calcium 7.9 L, Magnesium 0.5 L, Total Bilirubin 0.5, AST 35, ALT 20, Alkaline Phosphatase 86, Troponin I 0.07 H, NT-Pro-B Natriuret Pep 4990 H, Total Protein 7.8, Albumin 4.3, Globulin 3.5 H, Albumin/Globulin Ratio 1.2, Hepatitis C Antibody Non reactive, HIV 1&2 Antibody Rapid Nonreactive 04/06/24 16:32: Troponin I 0.07 H 04/06/24 19:55: APTT 27.4 L, Troponin I 0.07 H 04/06/24 21:50: POC Glucose 198 H 04/07/24 01:45: APTT 45.4 L 04/07/24 05:01: POC Glucose 147 H 04/07/24 05:35: WBC 8.3, RBC 4.26 L, Hgb 13.3 L, Hct 39.6 L, MCV 93.0, MCH 31.2, MCHC 33.5, RDW 15.7, Plt Count 287, MPV 7.6, Neut % (Auto) 60.5, Lymph % (Auto) 28.9, [place] % (Auto) 8.2, Eos % (Auto) 1.4, Baso % (Auto) 1.0, Neut # (Auto) 5.0, Lymph # (Auto) 2.4, [place] # (Auto) 0.7, Eos # (Auto) 0.1, Baso # (Auto) 0.1, Sodium 132 L, Potassium 3.6, Chloride 95 L, Carbon Dioxide 28, Anion Gap 12.6, BUN 14 D, Creatinine 1.00 D, Estimated Creat Clear 79, Estimated GFR 74, Est GFR ( Amer) 90 D, Glucose 119 H D, Calcium 8.2 L, Magnesium 1.5 L D, Total Bilirubin 0.6, AST 30, ALT 13 D, Alkaline Phosphatase 84, Total Protein 6.7, Albumin 3.6 D, Globulin 3.1, Albumin/Globulin Ratio 1.2, Triglycerides 60, Cholesterol 116 L, LDL Cholesterol Direct 49.03 L, VLDL Cholesterol 12, HDL Cholesterol 53, Cholesterol/HDL Ratio 2.2 04/07/24 08:26: APTT 67.5 I & O for Labs for Last 24 Hours: Intake & Output 04/04/24 04/05/24 04/06/24 04/07/24 23:59 23:59 23:59 23:59 Intake Total 550 / 550 941 / 941 Output Total 500 / 1200 1675 / 1675 Balance 50 / -650 -734 / -734 Weight 174 lb 6 oz 176 lb 11.208 oz Constitutional: Present mild distress Head: Present normocephalic and atraumatic ENT: Present normal exam, normal oropharynx and mucous membranes moist Neck: Present normal inspection and full ROM Respiratory: Present rales and able to speak in complete sentences; Absent prolonged expiratory phase, respiratory distress, rhonchi, wheezes, crackles or diminished air movement Cardiac: Present S1/S2, Tachycardia and radial pulses present GI: Present soft and distention; Absent tenderness or guarding Skin: Present intact; Absent cyanosis or jaundice Neuro: Present alert, awake and oriented x 3 Extremities: Present normal inspection; Absent clubbing or cyanosis Psychiatric: Present normal affect and cooperative Meds Home Medications and Allergies Home Medications ?Medication ?Instructions ?Recorded ?Confirmed ?Type atorvastatin 80 mg tablet 80 mg PO HS 90 days #90 tabs 04/02/24 04/07/24 Rx furosemide 40 mg tablet 40 mg PO DAILY 90 days #90 tabs 04/02/24 04/07/24 Rx metoprolol tartrate 25 mg tablet 25 mg PO BID 90 days #180 tabs 04/02/24 04/07/24 Rx aspirin 81 mg tablet,delayed 81 mg PO DAILY 04/07/24 04/07/24 History release clopidogrel 75 mg tablet 75 mg PO DAILY 04/07/24 04/07/24 History empagliflozin 25 mg tablet 25 mg PO DAILY 04/07/24 04/07/24 History (Jardiance) gabapentin 800 mg tablet 800 mg PO QID 04/07/24 04/07/24 History lisinopril 20 mg tablet 20 mg PO DAILY 04/07/24 04/07/24 History metformin 1,000 mg tablet 1,000 mg PO BID 04/07/24 04/07/24 History nitroglycerin 0.4 mg sublingual 0.4 mg sublingual Q5MINP PRN Chest 04/07/24 04/07/24 History tablet Pain omeprazole 40 mg capsule,delayed 40 mg PO DAILY 04/07/24 04/07/24 History release sitagliptin phosphate 100 mg 100 mg PO DAILY 04/07/24 04/06/24 History tablet (Januvia) tamsulosin 0.4 mg capsule 0.4 mg PO HS 04/07/24 04/07/24 History ticagrelor 90 mg tablet (Brilinta) 90 mg PO BID 04/07/24 04/07/24 History New Prescriptions to Start Prescriptions: Allergies Allergy/AdvReac Type Severity Reaction Status Date / Time No Known Allergies Allergy Verified 04/06/24 13:16 Results Laboratory Findings 04/07/24 05:35 04/07/24 05:35 PT/INR, D-dimer PT 11.7 seconds (10.1-12.5) 04/06/24 13:00 INR 1.05 (0.9-1.1) 04/06/24 13:00 D-Dimer 3.46 ug/mL (0.0-0.5) H 04/06/24 13:00 Abnormal lab findings: Abnormal Labs 04/06/24 04/06/24 04/06/24 13:00 16:32 19:55 RBC Hgb Hct MCV 94.1 H MCH 31.4 H APTT 27.4 L D-Dimer 3.46 H Sodium 132 L Chloride 90 L Anion Gap 16.9 H BUN 23 H Creatinine 1.40 H Estimated GFR 50 L Glucose 202 H POC Glucose Calcium 7.9 L Magnesium 0.5 L Troponin I 0.07 H 0.07 H 0.07 H NT-Pro-B Natriuret Pep 4990 H Globulin 3.5 H Cholesterol LDL Cholesterol Direct 04/06/24 04/07/24 04/07/24 21:50 01:45 05:01 RBC Hgb Hct MCV MCH APTT 45.4 L D-Dimer Sodium Chloride Anion Gap BUN Creatinine Estimated GFR Glucose POC Glucose 198 H 147 H Calcium Magnesium Troponin I NT-Pro-B Natriuret Pep Globulin Cholesterol LDL Cholesterol Direct 04/07/24 05:35 RBC 4.26 L Hgb 13.3 L Hct 39.6 L MCV MCH APTT D-Dimer Sodium 132 L Chloride 95 L Anion Gap BUN Creatinine Estimated GFR Glucose 119 H D POC Glucose Calcium 8.2 L Magnesium 1.5 L D Troponin I NT-Pro-B Natriuret Pep Globulin Cholesterol 116 L LDL Cholesterol Direct 49.03 L Assessment and Plan *Assessment and plan (1) Fibrosis of lung: Status: Acute Category: Medical Code(s): J84.10 - Pulmonary fibrosis, unspecified Plan Ms. Castro is a 69-year-old male history of tobacco abuse, CAD status post stenting type 2 diabetes mellitus scented to ER with worsening respiratory distress and pulmonary was called for further evaluation and management. Current smoker greater than [id number] smoking history smoking 2 packs a day. Denies any respiratory symptoms at baseline. Not using any oxygen supplementation. Not using any inhalers. Small joint pains and swelling. Denies any history of autoimmune disorders. Occupational history farming. CTA upon admission no evidence of pulm embolism. Bilateral subpleural interstitial changes both upper lobe and lower lobe with lower lobe predominance. Relatively stable from her CT scan from September 2022. No other dense consolidative/airspace changes noted. Emphysematous changes noted. Echocardiogram on this admission normal RV size and systolic function. Reduced EF at 45%. Inadequate TR to measure RVSP On examination patient does not appear to be in any respiratory distress. On room air, saturating 96 to 100%. Chest clear to auscultate. Plan: Albuterol INH QID as needed For the concerning fibrosis will follow the patient as an outpatient basis to further determine possible etiology. Patient admits stable respiratory symptoms for the last 4 to 5 years. # Thank you for involving pulmonary at this point of time we will follow the patient in the clinic in 2 to 4 weeks post discharge with a PFT walk testing prior to clinic visit.
[2024-04-07 10:53] LABS: POC Glucose,Bedside 121 (70-110)
[2024-04-07] MEDS: METFORMIN 500MG TABLET 1000 MG PO (11:36)
[2024-04-07] MEDS: SITAGLIPTIN 50MG TABLET 100 MG PO (11:36)
--- NOTE | 2024-04-07 11:55 | P.CONCA_ITS ---
History of Present Illness History of Present Illness Consult date: 04/07/24 Requesting physician: Jose Galvez Chief complaint: dizziness History of present illness: This is a 69-year-old gentleman who was admitted to the hospital with dizziness. The patient has a past medical history of coronary artery disease status post 2 stents placed February 2024, diabetes, hypertension, hyperlipidemia and current tobacco user. The patient states that he has been dizzy for approximately 2 weeks and it significantly worsened yesterday and he came to the emergency department. The patient states that he had 2 stents placed at [facility] on March 17, 2024. Shortly after that discharge from the hospital he started having significant shortness of breath and went to an outlying hospital was transferred to [facility]. The patient states that he was treated there and sent home. He states that he is continue to have shortness of breath intermittently and had his Lasix increased by his primary care provider. He states he has been having low blood pressure at home and his Coreg was held for that. The patient has continued to experience dizziness and that is why he came to the emergency department. Upon arrival he was found to be in atrial fibrillation with RVR. He was hypotensive with a blood pressure of 87/68. Cardiology was contacted and he was given IV digoxin. His rate did improve and the hospitalist note flex at the patient did convert back to sinus rhythm but subsequently went back into atrial fibrillation. This morning he appears to be in atrial fibrillation with a rate in the 80s. His blood pressure is currently stable. He denies any chest pain or pressure. He states he has had no chest pain since his stenting on March 17. He states that he intermittently has shortness of breath since the stenting but that is also improved. This could be coming from the Brilinta. He denies any lower extremity edema. He denies any fever, chills, nausea, vomiting, diarrhea, PND or orthopnea. [facility] Disclaimer: The information contained in this section may have been updated after the carolyn singletary was seen, as this information can be updated by other users. Medical History Heart attack Abnormal electrocardiogram [ECG] [EKG] DM type 2 (diabetes mellitus, type 2) HLD (hyperlipidemia) HTN (hypertension) Coronary artery disease Coronary artery calcification seen on CAT scan Social History (Updated 04/06/24 @ 18:48 by Jeimy Brock RN) Smoking Status: Current every day smoker tobacco type: cigarettes and pipe alcohol intake: current current occupational status: retired Travel in the last 8 weeks: None Review of Systems Review of Systems Review of systems:: pertinent systems reviewed and negative unless documented below Constitutional Constitutional: Reports system reviewed and no additional complaints, except as documented and Reports lethargy Eyes Eyes: Reports system reviewed and no additional complaints, except as documented ENT Ears, Nose, Mouth, and Throat: Reports system reviewed and no additional complaints, except as documented and Reports dizziness *Cardiovascular Cardiovascular: Reports system reviewed and no additional complaints, except as documented, Denies chest pain, Reports dyspnea on exertion and Reports lightheadedness *Respiratory Respiratory: Reports system reviewed and no additional complaints, except as documented and Reports dyspnea on exertion *Gastrointestinal Gastrointestinal: Reports system reviewed and no additional complaints, except as documented *Genitourinary Genitourinary: Reports system reviewed and no additional complaints, except as documented *Musculoskeletal Musculoskeletal: Reports system reviewed and no additional complaints, except as documented Integumentary/Breasts Skin/Breast: Reports system reviewed and no additional complaints, except as documented *Neurologic Neurologic: Reports system reviewed and no additional complaints, except as documented and Reports dizziness Psychiatric Psychiatric: Reports system reviewed and no additional complaints, except as documented Endocrine Endocrine: Reports system reviewed and no additional complaints, except as documented Hematologic/Lymphatic Hematologic/Lymphatic: Reports system reviewed and no additional complaints, except as documented Allergic/Immunologic Allergic/Immunologic: Reports system reviewed and no additional complaints, except as documented Exam Data for Last 24 hours Vital signs and Labs for Last 24 Hours: Temp Pulse Resp BP Pulse Ox O2 Del Method O2 Flow Rate 97.4 F L 80 16 117/72 96 Room Air 1 04/07/24 08:00 04/07/24 10:33 04/07/24 10:00 04/07/24 10:00 04/07/24 10:00 04/07/24 11:00 04/07/24 04:38 Laboratory Results - last 24 hr 04/06/24 13:00: WBC 10.7, RBC 4.60, Hgb 14.4, Hct 43.3, MCV 94.1 H, MCH 31.4 H, MCHC 33.4, RDW 15.5, Plt Count 292, MPV 7.6, Neut % (Auto) 65.8, Lymph % (Auto) 25.3, [place] % (Auto) 6.6, Eos % (Auto) 1.3, Baso % (Auto) 1.0, Neut # (Auto) 7.0, Lymph # (Auto) 2.7, [place] # (Auto) 0.7, Eos # (Auto) 0.1, Baso # (Auto) 0.1, PT 11.7, INR 1.05, APTT 28.2, D-Dimer 3.46 H, Sodium 132 L, Potassium 3.9, Chloride 90 L, Carbon Dioxide 29, Anion Gap 16.9 H, BUN 23 H, Creatinine 1.40 H, Estimated Creat Clear 57, Estimated GFR 50 L, Est GFR ( Amer) 61, Glucose 202 H, Calcium 7.9 L, Magnesium 0.5 L, Total Bilirubin 0.5, AST 35, ALT 20, Alkaline Phosphatase 86, Troponin I 0.07 H, NT-Pro-B Natriuret Pep 4990 H, Total Protein 7.8, Albumin 4.3, Globulin 3.5 H, Albumin/Globulin Ratio 1.2, Hepatitis C Antibody Non reactive, HIV 1&2 Antibody Rapid Nonreactive 04/06/24 16:32: Troponin I 0.07 H 04/06/24 19:55: APTT 27.4 L, Troponin I 0.07 H 04/06/24 21:50: POC Glucose 198 H 04/07/24 01:45: APTT 45.4 L 04/07/24 05:01: POC Glucose 147 H 04/07/24 05:35: WBC 8.3, RBC 4.26 L, Hgb 13.3 L, Hct 39.6 L, MCV 93.0, MCH 31.2, MCHC 33.5, RDW 15.7, Plt Count 287, MPV 7.6, Neut % (Auto) 60.5, Lymph % (Auto) 28.9, [place] % (Auto) 8.2, Eos % (Auto) 1.4, Baso % (Auto) 1.0, Neut # (Auto) 5.0, Lymph # (Auto) 2.4, [place] # (Auto) 0.7, Eos # (Auto) 0.1, Baso # (Auto) 0.1, Sodium 132 L, Potassium 3.6, Chloride 95 L, Carbon Dioxide 28, Anion Gap 12.6, BUN 14 D, Creatinine 1.00 D, Estimated Creat Clear 79, Estimated GFR 74, Est GFR ( Amer) 90 D, Glucose 119 H D, Calcium 8.2 L, Magnesium 1.5 L D, Total Bilirubin 0.6, AST 30, ALT 13 D, Alkaline Phosphatase 84, Total Protein 6.7, Albumin 3.6 D, Globulin 3.1, Albumin/Globulin Ratio 1.2, Triglycerides 60, Cholesterol 116 L, LDL Cholesterol Direct 49.03 L, VLDL Cholesterol 12, HDL Cholesterol 53, Cholesterol/HDL Ratio 2.2 04/07/24 08:26: APTT 67.5 04/07/24 10:45: POC Glucose 121 H I & O for Last 24 hours: Intake & Output 04/04/24 04/05/24 04/06/24 04/07/24 23:59 23:59 23:59 23:59 Intake Total 550 / 550 941 / 941 Output Total 500 / 1200 1675 / 1675 Balance 50 / -650 -734 / -734 Weight 174 lb 6 oz 176 lb 11.208 oz Narrative: EKG shows atrial fibrillation with a rate of [address]/T wave abnormalities. Echocardiogram shows: Mildly reduced LV systolic function (LVEF 45%). Asynchronous septum. Biatrial dilation. No significant valvular stenosis or regurgitation. Constitutional Constitutional: no acute distress and average body habitus *Routine HEENT Exam Head: Present normocephalic and atraumatic ENT: Present mucous membranes moist *Routine Neck Exam Neck: Present supple, full ROM and normal carotid upstroke; Absent JVD, carotid bruit or lymphadenopathy *Routine Respiratory Exam Respiratory: Present CTA bilaterally, normal respiratory effort, able to speak in complete sentences and symmetric chest movement *Routine Cardiovascular Exam Cardiovascular: Present Normal S1, Normal S2 and irregularly irregular; Absent murmur or gallop *Routine Abdominal Exam Abdominal: Present soft and normoactive bowel sounds; Absent tenderness, distended or organomegaly *Routine Extremities Exam Extremities: Present full ROM, pulses intact and normal capillary refill; Absent cyanosis, clubbing or edema *Routine Skin Exam Skin: Present intact and warm; Absent erythema *Routine Neurological Exam Neurological: Present alert, oriented X3 and CN II-XII intact; Absent sensory deficit or motor deficit Routine Psychiatric Exam Psychiatric: Present normal affect Meds Home Medications and Allergies Home Medications ?Medication ?Instructions ?Recorded ?Confirmed ?Type atorvastatin 80 mg tablet 80 mg PO HS 90 days #90 tabs 04/02/24 04/07/24 Rx furosemide 40 mg tablet 40 mg PO DAILY 90 days #90 tabs 04/02/24 04/07/24 Rx metoprolol tartrate 25 mg tablet 25 mg PO BID 90 days #180 tabs 04/02/24 04/07/24 Rx aspirin 81 mg tablet,delayed 81 mg PO DAILY 04/07/24 04/07/24 History release clopidogrel 75 mg tablet 75 mg PO DAILY 04/07/24 04/07/24 History empagliflozin 25 mg tablet 25 mg PO DAILY 04/07/24 04/07/24 History (Jardiance) gabapentin 800 mg tablet 800 mg PO QID 04/07/24 04/07/24 History lisinopril 20 mg tablet 20 mg PO DAILY 04/07/24 04/07/24 History metformin 1,000 mg tablet 1,000 mg PO BID 04/07/24 04/07/24 History nitroglycerin 0.4 mg sublingual 0.4 mg sublingual Q5MINP PRN Chest 04/07/24 04/07/24 History tablet Pain omeprazole 40 mg capsule,delayed 40 mg PO DAILY 04/07/24 04/07/24 History release sitagliptin phosphate 100 mg 100 mg PO DAILY 04/07/24 04/06/24 History tablet (Januvia) tamsulosin 0.4 mg capsule 0.4 mg PO HS 04/07/24 04/07/24 History ticagrelor 90 mg tablet (Brilinta) 90 mg PO BID 04/07/24 04/07/24 History New Prescriptions to Start Prescriptions: Allergies Allergy/AdvReac Type Severity Reaction Status Date / Time No Known Allergies Allergy Verified 04/06/24 13:16 Assessment and Plan *Assessment and plan (1) Elevated troponin: Status: Acute Category: Medical Code(s): R79.89 - Other specified abnormal findings of blood chemistry (2) Atrial fibrillation with RVR: Status: Acute Category: Medical Code(s): I48.91 - Unspecified atrial fibrillation (3) Coronary artery disease: Status: Chronic Qualifiers: Associated angina: with other forms of angina Coronary Disease- Associated Artery/Lesion type: [place] artery [place] vs. transplanted heart: [place] heart Qualified Code(s): I25.118 - Atherosclerotic heart disease of [place] coronary artery with other forms of angina pectoris Category: Medical Code(s): I25.10 - Atherosclerotic heart disease of [place] coronary artery without angina pectoris (4) HTN (hypertension): Status: Acute Qualifiers: Hypertension type: unspecified Qualified Code(s): I10 - Essential (primary) hypertension Category: Medical Code(s): I10 - Essential (primary) hypertension (5) HLD (hyperlipidemia): Status: Acute Qualifiers: Hyperlipidemia type: unspecified Qualified Code(s): E78.5 - Hyperlipidemia, unspecified Category: Medical Code(s): E78.5 - Hyperlipidemia, unspecified (6) DM type 2 (diabetes mellitus, type 2): Status: Acute Qualifiers: Diabetes mellitus complication status: with other specified complication Diabetes mellitus lump room supervisor insulin use: unspecified lump room supervisor insulin use status Qualified Code(s): E11.69 - Type 2 diabetes mellitus with other specified complication Category: Medical Code(s): E11.9 - Type 2 diabetes mellitus without complications (7) Abnormal electrocardiogram [ECG] [EKG]: Status: Acute Category: Medical Code(s): R94.31 - Abnormal electrocardiogram [ECG] [EKG] Plan Plan: 1. The patient was admitted to the hospital for atrial fibrillation with RVR. He was treated with IV digoxin and he did initially convert to sinus rhythm but he subsequently went back into atrial fibrillation. He remains in A-fib this morning with a rate in the 80s. We do recommend continuing digoxin 0.125 mg p.o. daily for suppression of atrial fibrillation. 2. His blood pressure has improved since stopping carvedilol. Will continue to hold blood pressure medications at this time. 3. The patient did have recent coronary stenting with 2 stents placed March 17, 2024 at [facility]. The patient has remained on Brilinta and aspirin since that time. He denies any chest pain or pressure. He does have a slightly elevated troponin but it has remained flat at 0.07. He denies chest pain or pressure. No plans for invasive left cardiac catheterization at this time. 4. Echocardiogram shows an ejection fraction of 45% with an asynchronous septum which is most likely from his atrial fibrillation. Records from [facility] at the beginning of March show his ejection fraction was around 50% ?5 so his ejection fraction remained stable. 5. The patient reports that he has been having intermittent shortness of breath which is most likely from his Brilinta. Will stop Brilinta after tonight's dose. 6. The patient will require long-term anticoagulation secondary to the atrial fibrillation. We do recommend stopping the heparin drip and starting him on Xarelto 15 mg p.o. daily for long-term anticoagulation since he will be on Plavix as well. 7. We recommend stopping the Brilinta after tonight's dose and then starting Plavix in the morning. He will need to be loaded with 300 mg of Plavix tomorrow morning and then will be on Plavix 75 mg daily thereafter. 8. Stop aspirin. 9. His blood pressure is now stable. 10. His LDL goal is less than 55. He is on a statin. His LDL is 49. 11. The patient reports that he has an appointment next week with a patient monitor in [facility] that comes from [facility]. 12. Further recommendations were made pending the patient's response to treatment. Thank you for the opportunity to help participate in the care of this patient. All recommendations and orders are per Dr. Koroma.
--- NOTE | 2024-04-07 13:10 | EXP.DC.SUM ---
General Admission date:: 04/06/24 Discharge date: 04/07/24 HPI HPI HPI: Noah willoughby is a 69-year-old male with a medical history significant for CAD s/p 2 stents recently, type 2 diabetes, current tobacco smoker, BPH, GERD who presents with dizziness ongoing for 2 weeks. He states he had 2 stents placed at [facility] about 2 weeks ago. Shortly after discharge, he experienced trouble breathing and went to [facility] who transferred him to [facility]. He cannot recall what workup or what they did there. He was discharged and recently followed up with his PCP on 04/02/2024. At his visit, he continued to have intermittent shortness of breath and his Lasix regimen was increased from 40 mg to 80 mg until dyspnea on increases. Blood pressure at that time was 92/58, and due to this concern Coreg was held. Patient continued to experience dizziness and proceeded to our ED. Initial vital signs HR 116 (A-fib), blood pressure 87/68. Cardiology was consulted by the ED, and they recommended IV digoxin 500 mcg for rate controlled in the setting of hypotension. Patient's heart rate improved to 74, and she converted back to sinus rhythm. However he he is currently back in A-fib but rate controlled. Current pressure 108/71. Looks comfortable, conversational, pleasant. Workup in the ED significant for magnesium 0.5, creatinine 1.4 (baseline is around 1.0) AGAP 16.9, troponin 0.07, BNP 4990. Denies chest pain, shortness of breath. Case discussed with ED provider and decision was made to admit patient for new onset A-fib with RVR, elevated troponins, hypomagnesemia. Hospital Course Hospital Course Hospital Course: Noah Castro is a 69-year-old male with a medical history significant for CAD s/p 2 stents recently, type 2 diabetes, current tobacco smoker, BPH, GERD who presents with dizziness ongoing for 2 weeks. He states he had 2 stents placed at [facility] about 2 weeks ago. Shortly after discharge, he experienced trouble breathing and went to [facility] who transferred him to [facility]. He cannot recall what workup or what they did there. He was discharged and recently followed up with his PCP on 04/02/2024. At that visit adjustments were made to his regimen due to persistent shortness of breath and low blood pressure. He is continued to be symptomatic which is what led to him coming to the ER. Workup significant for electrolyte disturbances, hypotension, and A-fib. Admitted to medicine for further management. Patient responded well to medication holding overnight, initiation of digoxin, and gentle fluids. By morning he felt better. Patient did not want to stay for recommended workup from cardiology. After shared decision making, patient does not want to stay as he has an obligation with a family member in court tomorrow. Is feeling much better. Discussed adjusting his lisinopril to half dose. Strongly encouraged to stay but patient feels he needs to go due to potential ramifications if he does not show up to court tomorrow. Discussed that we would like to make other adjustments to his medications but do not feel comfortable if he is not staying in the hospital. He states understanding. Has follow-up with his senior clinical data analyst in [place] next week, encouraged him to keep that appointment. Referred to pulmonology for further management of his pulmonary fibrosis. #NSTEMI, undetermined type at this time #History of CAD s/p 2 stents ? Recently had 2 stents placed about 2 weeks ago at [facility]. Presents with lightheadedness. Initial troponin 0.07. Had T wave inversions in leads II, 3, V5 and 6 compared to EKG from 2022. Likely sequela of recent NSTEMI and status post stents 2 weeks ago. Currently chest pain-free. Remained on room air during admission. Cardiology was consulted, recommended significant changes but patient was feeling better and did not want to stay for further workup and medication adjustment. Recommend he have close follow-up with his senior clinical data analyst in [place] which is scheduled for next week. Discuss further changes at that time. See med rec for full details. Would recommend considering discontinuing Brilinta to transition to Plavix given patient's dyspnea. #New onset A-fib #RVR resolved ? Initial heart rate 116, responded well to digoxin 500 mcg per cardiology recommendations in the ED. Patient was initiated on digoxin, has been in and out of A-fib and sinus rhythm since starting this medication. Will have patient resume his metoprolol at discharge, defer continue digoxin to his discussion with senior clinical data analyst in [place] next week. Initially on heparin drip. Would benefit from oral NOAC due to elevated [id number]. Defer this decision to him and his senior clinical data analyst to follow-up. #Elevated BNP #Suspected heart failure ? Initial BNP 4990, with evidence of contrast reflux into IVC on CTA but this is a nonspecific finding. Did not appear volume overloaded on exam. Echo obtained showing EF of 45 sent. Patient has an asynchronous septum which is most likely from his A-fib. Records from [place] at the beginning in March show his EF was around 50% his ejection fraction is more or less stable at this time. #Hypomagnesemia: Initial magnesium 0.5. Given IV magnesium 2 g in the ED and after admission. Morning magnesium improved to 1.5. Administered additional dose on day of discharge. #JOSE JUAN: Initial creatinine 1.4, baseline around 1.0. Improved by morning to 1.0. #Pulmonary fibrosis: Seen on CTA chest. Consulted pulmonology to establish care. Close follow-up after discharge #Type 2 diabetes: ACHS glucose checks, LDSSI during admission. Resume home regimen at discharge #GERD: Resume home PPI. #BPH: Continue home tamsulosin. e patient did have recent coronary stenting with 2 stents placed March 17, 2024 at [facility]. The patient has remained on Brilinta and aspirin since that time. He denies any chest pain or pressure. He does have a slightly elevated troponin but it has remained flat at 0.07. He denies chest pain or pressure. No plans for invasive left cardiac catheterization at this time. 4. Echocardiogram shows an ejection fraction of 45% with an asynchronous septum which is most likely from his atrial fibrillation. Records from [facility] at the beginning of March show his ejection fraction was around 50% ?5 so his ejection fraction remained stable. . The patient will require long-term anticoagulation secondary to the atrial fibrillation. We do recommend stopping the heparin drip and starting him on Xarelto 15 mg p.o. daily for long-term anticoagulation since he will be on Plavix as well. Total time spent on discharge 35 minutes in counseling, documentation, chart review, and direct care with patient. Exam Data for Last 24 hours Vital signs and Labs for Last 24 Hours: Temp Pulse Resp BP Pulse Ox O2 Del Method O2 Flow Rate 97.4 F L 80 16 117/72 96 Room Air 1 04/07/24 08:00 04/07/24 10:33 04/07/24 10:00 04/07/24 10:00 04/07/24 10:00 04/07/24 12:51 04/07/24 04:38 Laboratory Results - last 24 hr 04/06/24 13:00: WBC 10.7, RBC 4.60, Hgb 14.4, Hct 43.3, MCV 94.1 H, MCH 31.4 H, MCHC 33.4, RDW 15.5, Plt Count 292, MPV 7.6, Neut % (Auto) 65.8, Lymph % (Auto) 25.3, [place] % (Auto) 6.6, Eos % (Auto) 1.3, Baso % (Auto) 1.0, Neut # (Auto) 7.0, Lymph # (Auto) 2.7, [place] # (Auto) 0.7, Eos # (Auto) 0.1, Baso # (Auto) 0.1, PT 11.7, INR 1.05, APTT 28.2, D-Dimer 3.46 H, Sodium 132 L, Potassium 3.9, Chloride 90 L, Carbon Dioxide 29, Anion Gap 16.9 H, BUN 23 H, Creatinine 1.40 H, Estimated Creat Clear 57, Estimated GFR 50 L, Est GFR ( Amer) 61, Glucose 202 H, Calcium 7.9 L, Magnesium 0.5 L, Total Bilirubin 0.5, AST 35, ALT 20, Alkaline Phosphatase 86, Troponin I 0.07 H, NT-Pro-B Natriuret Pep 4990 H, Total Protein 7.8, Albumin 4.3, Globulin 3.5 H, Albumin/Globulin Ratio 1.2, Hepatitis C Antibody Non reactive, HIV 1&2 Antibody Rapid Nonreactive 04/06/24 16:32: Troponin I 0.07 H 04/06/24 19:55: APTT 27.4 L, Troponin I 0.07 H 04/06/24 21:50: POC Glucose 198 H 04/07/24 01:45: APTT 45.4 L 04/07/24 05:01: POC Glucose 147 H 04/07/24 05:35: WBC 8.3, RBC 4.26 L, Hgb 13.3 L, Hct 39.6 L, MCV 93.0, MCH 31.2, MCHC 33.5, RDW 15.7, Plt Count 287, MPV 7.6, Neut % (Auto) 60.5, Lymph % (Auto) 28.9, [place] % (Auto) 8.2, Eos % (Auto) 1.4, Baso % (Auto) 1.0, Neut # (Auto) 5.0, Lymph # (Auto) 2.4, [place] # (Auto) 0.7, Eos # (Auto) 0.1, Baso # (Auto) 0.1, Sodium 132 L, Potassium 3.6, Chloride 95 L, Carbon Dioxide 28, Anion Gap 12.6, BUN 14 D, Creatinine 1.00 D, Estimated Creat Clear 79, Estimated GFR 74, Est GFR ( Amer) 90 D, Glucose 119 H D, Calcium 8.2 L, Magnesium 1.5 L D, Total Bilirubin 0.6, AST 30, ALT 13 D, Alkaline Phosphatase 84, Total Protein 6.7, Albumin 3.6 D, Globulin 3.1, Albumin/Globulin Ratio 1.2, Triglycerides 60, Cholesterol 116 L, LDL Cholesterol Direct 49.03 L, VLDL Cholesterol 12, HDL Cholesterol 53, Cholesterol/HDL Ratio 2.2 04/07/24 08:26: APTT 67.5 04/07/24 10:45: POC Glucose 121 H I & O for Last 24 hours: Intake & Output 04/04/24 04/05/24 04/06/24 04/07/24 23:59 23:59 23:59 23:59 Intake Total 550 / 550 941 / 941 Output Total 500 / 1200 1675 / 1675 Balance 50 / -650 -734 / -734 Weight 79.095 kg 80.15 kg Constitutional Constitutional: no acute distress, average body habitus, chronically ill appearing and cooperative *Routine HEENT Exam Head: Present normocephalic Eye: Present EOMI and PERRL ENT: Present mucous membranes moist *Routine Neck Exam Neck: Present supple; Absent lymphadenopathy *Routine Respiratory Exam Respiratory: Present CTA bilaterally *Routine Cardiovascular Exam Cardiovascular: Present irregularly irregular Comments: rate controlled *Routine Abdominal Exam Abdominal: Present soft and normoactive bowel sounds; Absent tenderness *Routine Rectal Exam Patient deferred: visual exam *Routine Exam Patient deferred: penile exam *Routine Extremities Exam Extremities: Absent cyanosis, clubbing or edema *Routine Skin Exam Skin: Present intact and warm; Absent rash *Routine Neurological Exam Neurological: Present alert, oriented X3 and moving all extremities; Absent altered mental status Routine Psychiatric Exam Psychiatric: Present normal thought process Results Data Completed and Pending Labs on day of discharge: Labs from last 24 hours 04/07/24 04/07/24 04/07/24 10:45 08:26 05:35 WBC 8.3 RBC 4.26 L Hgb 13.3 L Hct 39.6 L MCV 93.0 MCH 31.2 MCHC 33.5 RDW 15.7 Plt Count 287 MPV 7.6 Neut % (Auto) 60.5 Lymph % (Auto) 28.9 [place] % (Auto) 8.2 Eos % (Auto) 1.4 Baso % (Auto) 1.0 Neut # (Auto) 5.0 Lymph # (Auto) 2.4 [place] # (Auto) 0.7 Eos # (Auto) 0.1 Baso # (Auto) 0.1 PT INR APTT 67.5 D-Dimer Sodium 132 L Potassium 3.6 Chloride 95 L Carbon Dioxide 28 Anion Gap 12.6 BUN 14 D Creatinine 1.00 D Estimated Creat Clear 79 Estimated GFR 74 Est GFR ( Amer) 90 D Glucose 119 H D POC Glucose 121 H Calcium 8.2 L Magnesium 1.5 L D Total Bilirubin 0.6 AST 30 ALT 13 D Alkaline Phosphatase 84 Troponin I NT-Pro-B Natriuret Pep Total Protein 6.7 Albumin 3.6 D Globulin 3.1 Albumin/Globulin Ratio 1.2 Triglycerides 60 Cholesterol 116 L LDL Cholesterol Direct 49.03 L VLDL Cholesterol 12 HDL Cholesterol 53 Cholesterol/HDL Ratio 2.2 Hepatitis C Antibody HIV 1&2 Antibody Rapid 04/07/24 04/07/24 04/06/24 05:01 01:45 21:50 WBC RBC Hgb Hct MCV MCH MCHC RDW Plt Count MPV Neut % (Auto) Lymph % (Auto) [place] % (Auto) Eos % (Auto) Baso % (Auto) Neut # (Auto) Lymph # (Auto) [place] # (Auto) Eos # (Auto) Baso # (Auto) PT INR APTT 45.4 L D-Dimer Sodium Potassium Chloride Carbon Dioxide Anion Gap BUN Creatinine Estimated Creat Clear Estimated GFR Est GFR ( Amer) Glucose POC Glucose 147 H 198 H Calcium Magnesium Total Bilirubin AST ALT Alkaline Phosphatase Troponin I NT-Pro-B Natriuret Pep Total Protein Albumin Globulin Albumin/Globulin Ratio Triglycerides Cholesterol LDL Cholesterol Direct VLDL Cholesterol HDL Cholesterol Cholesterol/HDL Ratio Hepatitis C Antibody HIV 1&2 Antibody Rapid 04/06/24 04/06/24 04/06/24 19:55 16:32 13:00 WBC 10.7 RBC 4.60 Hgb 14.4 Hct 43.3 MCV 94.1 H MCH 31.4 H MCHC 33.4 RDW 15.5 Plt Count 292 MPV 7.6 Neut % (Auto) 65.8 Lymph % (Auto) 25.3 [place] % (Auto) 6.6 Eos % (Auto) 1.3 Baso % (Auto) 1.0 Neut # (Auto) 7.0 Lymph # (Auto) 2.7 [place] # (Auto) 0.7 Eos # (Auto) 0.1 Baso # (Auto) 0.1 PT 11.7 INR 1.05 APTT 27.4 L 28.2 D-Dimer 3.46 H Sodium 132 L Potassium 3.9 Chloride 90 L Carbon Dioxide 29 Anion Gap 16.9 H BUN 23 H Creatinine 1.40 H Estimated Creat Clear 57 Estimated GFR 50 L Est GFR ( Amer) 61 Glucose 202 H POC Glucose Calcium 7.9 L Magnesium 0.5 L Total Bilirubin 0.5 AST 35 ALT 20 Alkaline Phosphatase 86 Troponin I 0.07 H 0.07 H 0.07 H NT-Pro-B Natriuret Pep 4990 H Total Protein 7.8 Albumin 4.3 Globulin 3.5 H Albumin/Globulin Ratio 1.2 Triglycerides Cholesterol LDL Cholesterol Direct VLDL Cholesterol HDL Cholesterol Cholesterol/HDL Ratio Hepatitis C Antibody Non reactive HIV 1&2 Antibody Rapid Nonreactive DS: Diagnosis Discharge Diagnosis (1) Fibrosis of lung: Status: Acute Code(s): J84.10 - Pulmonary fibrosis, unspecified Meds Home Medications and Allergies Home Medications ?Medication ?Instructions ?Recorded ?Confirmed ?Type atorvastatin 80 mg tablet 80 mg PO HS 90 days #90 tabs 04/02/24 04/07/24 Rx furosemide 40 mg tablet 40 mg PO DAILY 90 days #90 tabs 04/02/24 04/07/24 Rx metoprolol tartrate 25 mg tablet 25 mg PO BID 90 days #180 tabs 04/02/24 04/07/24 Rx aspirin 81 mg tablet,delayed 81 mg PO DAILY 04/07/24 04/07/24 History release clopidogrel 75 mg tablet 75 mg PO DAILY 04/07/24 04/07/24 History empagliflozin 25 mg tablet 25 mg PO DAILY 04/07/24 04/07/24 History (Jardiance) gabapentin 800 mg tablet 800 mg PO QID 04/07/24 04/07/24 History lisinopril 20 mg tablet 10 mg (1/2 x 20 mg) PO DAILY 30 04/07/24 04/07/24 Rx days #0 tabs metformin 1,000 mg tablet 1,000 mg PO BID 04/07/24 04/07/24 History nitroglycerin 0.4 mg sublingual 0.4 mg sublingual Q5MINP PRN Chest 04/07/24 04/07/24 History tablet Pain omeprazole 40 mg capsule,delayed 40 mg PO DAILY 04/07/24 04/07/24 History release sitagliptin phosphate 100 mg 100 mg PO DAILY 04/07/24 04/06/24 History tablet (Januvia) tamsulosin 0.4 mg capsule 0.4 mg PO HS 04/07/24 04/07/24 History ticagrelor 90 mg tablet (Brilinta) 90 mg PO BID 04/07/24 04/07/24 History New Prescriptions to Start Prescriptions: Allergies Allergy/AdvReac Type Severity Reaction Status Date / Time No Known Allergies Allergy Verified 04/06/24 13:16 Discharge Plan Disposition Patient Disposition: Home, Self-Care Follow up Plan Follow up with: Wilfrid Martinez MD [Primary Care Provider] - 04/14/24 1:30 pm Obie Brown MD [Physician] - 04/23/24 11:40 am Prescriptions/Medication Reconciliation: Continued furosemide 40 mg tablet 40 mg PO DAILY 90 Days Qty: 90 0RF atorvastatin 80 mg tablet 80 mg PO HS 90 Days Qty: 90 0RF metoprolol tartrate 25 mg tablet 25 mg PO BID 90 Days Qty: 180 0RF aspirin 81 mg Tablet,Delayed Release (Dr/Ec) 81 mg PO DAILY Brilinta 90 mg tablet 90 mg PO BID gabapentin 800 mg tablet 800 mg PO QID Jardiance 25 mg tablet 25 mg PO DAILY metformin 1,000 mg tablet 1,000 mg PO BID nitroglycerin 0.4 mg tablet, sublingual 0.4 mg sublingual Q5MINP PRN (Reason: Chest Pain) Patient Comments: DISSOLVE 1 TABLET UNDER THE TONGUE EVERY 5 MINUTES NEEDED FOR CHEST PAIN. IF 3 TABLETS ARE NEEDED, GO TO EMERGENCY ROOM. omeprazole 40 mg capsule,delayed release(DR/EC) 40 mg PO DAILY Patient Comments: TAKE 1 CAPSULE 1 TIME EACH DAY FOR ACID REFLUX Januvia 100 mg tablet 100 mg PO DAILY tamsulosin 0.4 mg capsule 0.4 mg PO HS Patient Comments: TAKE 1 CAPSULE 1 TIME EACH DAY AT BEDTIME FOR PROSTATE clopidogrel 75 mg tablet 75 mg PO DAILY Patient Comments: TAKE 1 TABLET 1 TIME EACH DAY FOR BLOOD THINNER Changed lisinopril 20 mg tablet 10 mg PO DAILY 30 Days Qty: 0 0RF Patient Comments: TAKE 1 TABLET 1 TIME EACH DAY FOR HIGH BLOOD PRESSURE Problem Reconciliation Problems Reviewed?: Yes Patient Discharge Instructions ACTIVITY: Continue current activity DIET: continue same diet Patient Instructions: Atrial Fibrillation, DI for Atrial Fibrillation, DI for Hypomagnesemia, DI for Heart Failure Exacerbations Print Language: Greek Providers Primary Care Provider: Wilfrid Martinez Admit Provider: Chacorta Vela Attending Provider: Chacorta Vela
--- NOTE | 2024-04-09 10:19 | SW/DCPLANNER ---
Called patient x2 and each time no answer or voicemail was able to be left. Chris ROA Singe Winder
== END 2024-04-07 13:30 | disposition home or self-care (01) ==
LOC: ER 17:31 → 2ND 18:09
PROVIDERS: Emergency Medicine; Admitting Provider Student in an Organized Health Care Education/Training Program; Emergency Provider Emergency Medicine; PCP Family Medicine; Visit Provider Student in an Organized Health Care Education/Training Program
DX: I21.4 Non-ST elevation (NSTEMI) myocardial infarction (principal); I48.91 Unspecified atrial fibrillation; I25.118 Atherosclerotic heart disease of native coronary artery with other forms of angina pectoris; J84.10 Pulmonary fibrosis, unspecified; I10 Essential (primary) hypertension; R79.89 Other specified abnormal findings of blood chemistry; E83.42 Hypomagnesemia; E11.69 Type 2 diabetes mellitus with other specified complication; E78.5 Hyperlipidemia, unspecified; R94.31 Abnormal electrocardiogram [ECG] [EKG]; Z79.899 Other long term (current) drug therapy; Z79.84 Long term (current) use of oral hypoglycemic drugs; Z95.5 Presence of coronary angioplasty implant and graft; N17.9 Acute kidney failure, unspecified
CPT/HCPCS: 36415; 71045; 71275; 80053; 80061; 82962; 83735; 83880; 84484; 85025; 85378; 85610; 85730; 86803; 87389; 93005; 93306; 99291; G0378; J1160; J1644; J3475; J7030; Q9967

== ENCOUNTER 2024-06-01 07:55 | Observation (INO) | payer MEDICARE, MEDICAID, SELFPAY ==
[2024-06-01] VITALS (11 sets, daily range): BP systolic 104–147; BP diastolic 57–100; PULSE 58–80; RESP 17–31; TEMP 36.4–36.5; O2SAT 92–99; BMI 25.8; BMI 27.3
--- NOTE | 2024-06-01 07:50 | XR_ITS ---
FINAL REPORT CLINICAL HISTORY: soa COMPARISON: 04/06/2024 FINDINGS: There is pulmonary vascular congestion. There are diffuse increased pulmonary markings compatible with edema. There are small bilateral pleural effusions. Heart size is normal. IMPRESSION: Moderate CHF. Reviewed, Interpreted and Dictated by Salinas Bernard MD Transcribed by Jacquelyn Faria Authenticated and [facility]
--- NOTE | 2024-06-01 07:57 | PC.NURSE ---
dr nelson at bedside
--- NOTE | 2024-06-01 07:59 | ECG_ITS ---
APPROVED REPORT Exam: Resting ECG HR:75 bpm ECG Measurements Heart Rate 75 AXES AL 163 P 80 QRSd 92 QRS 40 QT 409 T -8 QTc 437 Conclusion SINUS RHYTHM NONSPECIFIC T-WAVE ABNORMALITY BORDERLINE ECG UNCONFIRMED REPORT Electronically signed by : CAPRICE CORDOVA, 06/01/2024 23:04:25
[2024-06-01 08:06] LABS: Lactate Venous 1.8 mmol/L (0.4-2.0); VBG Base Excess -0.1 mmol/L (-2.4-2.3); VBG HCO3 25.5 mmol/L (23-30); VBG Oxygen Saturation 41.5 % (50-70); VBG PCO2 47.6 mmol/L (35-51); VBG PH 7.35 mmol/L (7.31-7.41); VBG PO2 26.6 mmol/L (28-40)
[2024-06-01 08:10] LABS: Basophils # 0.1 K/mm3 (0-0.2); Basophils % 0.9 % (0.1-2.0); Eosinophils # 0.1 K/mm3 (0.0-0.4); Eosinophils % 0.5 % (0.1-12.0); Hematocrit 37.3 % (42.0-52.0); Hemoglobin 12.3 g/dL (14.1-18.0); Lymphocytes # 1.7 K/mm3 (0.7-4.5); Mean Corpuscular Hemoglobin 30.6 pg (27.0-31.2); Mean Corpuscular Volume 92.8 fl (80-94); Mean Platelet Volume 9.5 fl (7.4-10.4); Monocytes # 0.7 K/mm3 (0.1-1.0); Monocytes % 6.3 % (1.7-9.3); Neutrophils # 8.6 K/mm3 (1.8-7.8); Neutrophils % 76.8 % (37.0-80.0); Platelet Count 271 K/mm3 (142-424); Red Blood Count 4.02 M/mm3 (4.60-6.20); Red Cell Distribution Width 15.9 % (11.5-17.5); White Blood Count 11.2 K/mm3 (4.8-10.8)
[2024-06-01] MEDS: ASPIRIN 81MG CHEWABLE TABLET 324 MG PO (08:10)
[2024-06-01] MEDS: FUROSEMIDE 40MG/4ML VIAL 80 MG IV (08:10)
--- NOTE | 2024-06-01 08:11 | HMH.EDCP ---
Discharge Plan Disposition Patient Disposition: Admitted Clinical Impressions Clinical Impression: Acute hypoxemic respiratory failure, CHF exacerbation Discharge ED Provider: David Klein HPI General Chief Complaint: Shortness of Breath/Dyspnea Stated Complaint: soa Time Seen by Provider: 06/01/24 07:59 Mode of Arrival: EMS Source of Information: Patient and EMS Limitations: No Limitations Description of Symptoms (Recalled from ER Triage Doc. by RN): pt was brought in for SOA which is worse on excertion tht started last night while he was sitting on the couch, pt has a new cough and states it feels like its in his throat, per ems patient was 88% on room air, pt does smoke, pt came up with 2l via nc History of Present Illness HPI narrative: Please note that above description of symptoms, in this electronic medical record under categorization of recalled from ER triage doctor by RN are reflective of an initial nursing assessment, however, is not reflective of my full history and physical exam that was personally taken and clarified. Consequentially, this preceding description of symptoms, which may include the patient's categorized chief complaint in the EMR, do not reflect my personal clinical impression, and the ultimate description of history of present illness and patient stated complaints should be deferred to this section of the note. Unless stated otherwise or congruent with this section of the note, additional signs, symptoms, or incongruence should be interpreted as inaccurate with my clinical impression. Related Data Home Medications ?Medication ?Instructions ?Recorded ?Confirmed aspirin 81 mg tablet,delayed 81 mg PO DAILY 04/07/24 06/01/24 release clopidogrel 75 mg tablet 75 mg PO DAILY 04/07/24 04/14/24 empagliflozin 25 mg tablet 25 mg PO DAILY 04/07/24 06/01/24 (Jardiance) gabapentin 800 mg tablet 800 mg PO QID 04/07/24 06/01/24 metformin 1,000 mg tablet 1,000 mg PO BID 04/07/24 06/01/24 nitroglycerin 0.4 mg sublingual 0.4 mg sublingual Q5MINP PRN Chest 04/07/24 06/01/24 tablet Pain omeprazole 40 mg capsule,delayed 40 mg PO DAILY 04/07/24 06/01/24 release sitagliptin phosphate 100 mg 100 mg PO DAILY 04/07/24 06/01/24 tablet (Januvia) tamsulosin 0.4 mg capsule 0.4 mg PO HS 04/07/24 06/01/24 ticagrelor 90 mg tablet (Brilinta) 90 mg PO BID 04/07/24 04/14/24 Previous Rx's ?Medication ?Instructions ?Recorded atorvastatin 80 mg tablet 80 mg PO HS 90 days #90 tabs 04/02/24 metoprolol tartrate 25 mg tablet 25 mg PO BID 90 days #180 tabs 04/02/24 furosemide 40 mg tablet 40 mg PO DAILY 90 days #90 tabs 04/14/24 Allergies Allergy/AdvReac Type Severity Reaction Status Date / Time No Known Allergies Allergy Verified 04/14/24 13:21 [facility] Disclaimer: The information contained in this section may have been updated after the patient was seen, as this information can be updated by other users. Medical History Fibrosis of lung Heart attack Abnormal electrocardiogram [ECG] [EKG] DM type 2 (diabetes mellitus, type 2) HLD (hyperlipidemia) HTN (hypertension) Coronary artery disease Coronary artery calcification seen on CAT scan Social History Smoking Status: Current every day smoker tobacco type: cigarettes and pipe alcohol intake: current current occupational status: retired Travel in the last 8 weeks: None Have you lived/traveled outside US in past 30 days?: No Contact w/someone who lives/traveled outside US past 30 days?: No Exposure to someone with infectious disease in past 14 days?: No Do you have a fever (greater than 100.4 F or 38 C)?: No Have you tested positive for COVID-19: No Exposed to someone with COVID-19 in past 14 days?: No Do you have a sore throat?: No Do you have a cough?: No Do you have any weakness?: No Do you have any diarrhea?: No Are you experiencing any unusual bleeding?: No Do you have any muscle aches/pain?: No Do you have any abdominal pain?: No Are you experiencing loss of taste or smell?: No Other Medical History Have you received the Flu Vaccine for this season: No Have you received the Pneumonia Vaccine: Yes ROS Obtained: Yes All systems reviewed & no additional complaints except as documented Physical Exam General General appearance: alert Neck Neck exam: Present trachea midline and other (JVD) Chest Chest inspection: Present normal inspection and symmetric chest wall rise Respiratory Respiratory exam: Present other (Lower lobe rales); Absent normal lung sounds bilaterally, respiratory distress, wheezes, stridor, accessory muscle use or prolonged expiratory phase Cardiovascular Cardiovascular exam: Present regular rate, normal rhythm and other (Pulses equal and symmetric in upper and lower extremities) Extremities Exam Extremities exam: Present edema Neurological Exam Neurological exam: Present alert, oriented X3 and CN II-XII intact Skin Skin exam: Present warm and dry; Absent cyanosis, diaphoresis or pallor HEART Score HEART Score HEART Score assessment performed?: Yes History (anamnesis): Slightly suspicious ECG: Normal Age: >65 years Risk factors: 3 or more risk factors Troponin: </= normal limit HEART Score: 4 Critical Care Critical Care Time Critical Care Time: Yes (cardiac) Attestation: On 06/01/24, the high probability of a clinically significant, sudden or life threatening deterioration of the following system(s) required my full and direct attention, intervention and personal management. The time I documented below is in addition to time spent performing reported procedures but includes the following listed in this critical care notation. Total Time Total Critical Care Time: 35 Medical Decision Making Medical Records Medical records reviewed: Yes I reviewed the patient's medical records. [place] Inquiry Pt receiving controlled substance: No [place] was queried for this patient: No Vital Signs Vital Signs: 06/01/24 07:55 06/01/24 08:31 06/01/24 09:00 Temperature 97.5 F L Temperature Source Oral Pulse Rate 67 64 Pulse Rate [Left Radial] 80 Respiratory Rate 20 25 H 31 H Blood Pressure 133/91 H 147/89 H Blood Pressure [Right Arm] 128/98 H Blood Pressure Mean [Right Arm] 108 Blood Pressure Source 02 Sat by Pulse Oximetry 96 92 L 96 Oxygen Delivery Method Nasal Cannula Nasal Cannula Nasal Cannula Oxygen Flow Rate (LPM) 2 06/01/24 09:30 06/01/24 10:00 06/01/24 10:20 Temperature 97.7 F Temperature Source Oral Pulse Rate 65 65 66 Pulse Rate [Left Radial] Respiratory Rate 27 H 24 25 H Blood Pressure 145/100 H 122/70 122/71 Blood Pressure [Right Arm] Blood Pressure Mean [Right Arm] Blood Pressure Source Automatic Cuff 02 Sat by Pulse Oximetry 96 96 Oxygen Delivery Method Nasal Cannula Nasal Cannula Nasal Cannula Oxygen Flow Rate (LPM) 2 06/01/24 10:30 Temperature Temperature Source Pulse Rate 66 Pulse Rate [Left Radial] Respiratory Rate 24 Blood Pressure 136/72 Blood Pressure [Right Arm] Blood Pressure Mean [Right Arm] Blood Pressure Source 02 Sat by Pulse Oximetry 98 Oxygen Delivery Method Nasal Cannula Oxygen Flow Rate (LPM) Lab Data Labs: Lab Results 06/01/24 07:52: VBG pH 7.35, VBG pCO2 47.6, VBG pO2 26.6 L, VBG HCO3 25.5, VBG Total CO2 27.0, VBG O2 Saturation 41.5 L, VBG Base Excess -0.1, VBG Lactic Acid 1.8 06/01/24 07:58: WBC 11.2 H, RBC 4.02 L, Hgb 12.3 L, Hct 37.3 L, MCV 92.8, MCH 30.6, MCHC 33.0, RDW 15.9, Plt Count 271, MPV 9.5, Neut % (Auto) 76.8, Lymph % (Auto) 15.0, [place] % (Auto) 6.3, Eos % (Auto) 0.5, Baso % (Auto) 0.9, Neut # (Auto) 8.6 H, Lymph # (Auto) 1.7, [place] # (Auto) 0.7, Eos # (Auto) 0.1, Baso # (Auto) 0.1, PT 11.5, INR 1.03, APTT 26.6, D-Dimer 1.72 H, Sodium 133 L, Potassium 4.2, Chloride 97 L, Carbon Dioxide 28, Anion Gap 12.2, BUN 8 L, Creatinine 0.70, Estimated Creat Clear 78, Estimated GFR 112, Est GFR ( Amer) 135, Glucose 128 H, Calcium 8.3 L, Magnesium 0.8 L, Total Bilirubin 0.9, AST 38, ALT 17, Alkaline Phosphatase 79, Troponin I 0.01, NT-Pro-B Natriuret Pep 2940 H, Total Protein 6.8, Albumin 3.8, Globulin 3.0, Albumin/Globulin Ratio 1.3, TSH 2.54, Thyroxine (T4) 9.4 06/01/24 07:58 06/01/24 07:58 Response Orders (Tests/Meds): ED MEDICATIONS Generic Name Dose Route Start Last Admin Trade Name Heather PRN Reason Stop Dose Admin Magnesium Sulfate 2 gm in 50 mls @ 50 mls/hr 06/01/24 09:00 06/01/24 09:06 Magnesium Sulfate 2gm/50ml Premix IV 06/01/24 10:59 50 mls/hr Q1H TELLY Administration Nicotine 42 mg 06/01/24 09:45 Nicotine 21mg/24hr Patch TD 07/01/24 09:44 DAILY TELLY Discontinued Medications Generic Name Dose Route Start Last Admin Trade Name Heather PRN Reason Stop Dose Admin Aspirin 324 mg 06/01/24 07:50 06/01/24 08:10 Aspirin 81mg Chewable Tablet PO 06/01/24 07:51 324 mg ONCE ONE Administration Calcium Gluconate 1,000 mg 06/01/24 08:50 Calcium Gluconate 1gm/10ml (10%) Vial IVP 07/01/24 08:49 ONCE PRN Mag toxicity Furosemide 80 mg 06/01/24 08:03 06/01/24 08:10 Furosemide 40mg/4ml Vial IV 06/01/24 08:04 80 mg ONCE ONE Administration Magnesium Sulfate 4 gm in 50 mls @ 150 mls/hr 06/01/24 08:50 06/01/24 09:26 Magnesium Sulfate 4gm/50ml Premix IV 06/01/24 09:09 Not Given ONCE ONE Calcium Gluconate/Sodium Chloride 1 gm in 50 mls @ 50 mls/hr 06/01/24 09:15 06/01/24 09:26 Calcium Gluconate 1,000mg/50ml Nacl Premix IV 06/01/24 10:14 Not Given ONCE ONE Iopamidol 80 ml 06/01/24 10:15 06/01/24 10:16 Iopamidol-370 (76%);100ml Bottle IV 06/01/24 10:16 80 ml ONCE ONE Administration Magnesium Oxide 800 mg 06/01/24 08:50 06/01/24 09:06 Magnesium Oxide 400mg Tablet PO 06/01/24 08:51 800 mg ONCE ONE Administration Sodium Chloride 50 ml 06/01/24 10:15 06/01/24 10:16 0.9 % Sodium Chloride 50 Ml Vial IV 06/01/24 10:16 50 ml ONCE ONE Administration Sodium Chloride 10 ml 06/01/24 10:15 06/01/24 10:16 Sodium Chloride 0.9% 10ml Syr (Rad Only) IV 07/01/24 10:14 10 ml NEEDED PRN Administration Maintain IV Site ORDERS Category Date Time Status CT angio chest PE protocol Stat Cat Scan 06/01/24 09:51 Taken Cardiology Consult [Consult to Cardiology] [CONS] Cons 06/01/24 09:42 Active Routine XR chest portable Stat Exams 06/01/24 07:50 Completed BMP [Basic Metabolic Panel] Routine Lab 06/01/24 17:00 Ordered Complete Blood Count Auto Diff AMLAB Lab 06/02/24 06:00 Ordered Complete Blood Count Auto Diff Stat Lab 06/01/24 07:58 Completed Comprehensive Metabolic Panel AMLAB Lab 06/02/24 06:00 Ordered Comprehensive Metabolic Panel Stat Lab 06/01/24 07:58 Completed D-Dimer Stat Lab 06/01/24 07:58 Completed Magnesium AMLAB Lab 06/02/24 06:00 Ordered Magnesium Routine Lab 06/01/24 17:00 Ordered Magnesium Stat Lab 06/01/24 07:58 Completed NT Pro Brain Natriuretic Pep. Stat Lab 06/01/24 07:58 Completed PT INR [Prothrombin Time INR] Stat Lab 06/01/24 07:58 Completed PTT [Activated Partial Thrombo Time] Stat Lab 06/01/24 07:58 Completed T4 (Thyroxine) Stat Lab 06/01/24 07:58 Completed TSH [Thyroid Stimulating Hormone] Stat Lab 06/01/24 07:58 Completed Troponin I Q3H Lab 06/01/24 11:00 Ordered Troponin I Q3H Lab 06/01/24 14:00 Ordered Troponin I Stat Lab 06/01/24 07:58 Completed Venous Blood Gas Stat RT 06/01/24 07:52 Completed MDM Narrative Medical Decision Narrative: 69-year-old male history of COPD smoking 3 packs a day presenting with shortness of breath. He states this is been getting worse over the past few days to couple weeks. Worse when he lays flat, he does state that he has been swelling more in his lower extremities. Does not state that he is been wheezing, coughing, no systemic signs or symptoms, but does state that he feels like he has a globus sensation in his throat and he just cannot get air in through my mouth. States he is recently taken off his diuretic medication, does not know why. History was obtained via conversation with patient. On arrival, patient hemodynamically stable, alert, oriented x4, appropriate, GCS 15, moving all extremities spontaneously, pupils equal and reactive to light. Full physical exam performed and significant for 69-year-old male no acute distress. Lungs are clear, no evidence of stridor. He is speaking full sentences. Inferior lung sounds with rales consistent with fluid overload. Abdomen soft. Lower extremity 2+ pitting edema.. Differential includes CHF, COPD, pneumonia, PE, pneumothorax, ACS, IA, among others. Patient was given 60 mg IV Lasix for symptomatic management and correction of underlying abnormalities. Patient placed on continuous cardiac monitoring and continuous pulse ox with initial blood pressure 128/98, heart rate 80, saturation 96% on 2 L nasal cannula. Independent interpretation of EKG shows sinus rhythm [address] 163, QRS 92. Normal axis, no acute ischemic change. Workup independently interpreted and significant for nonactionable CBC. Chemistry with mild hyponatremia. Kidney function normal. Hypomagnesemia 0.8 this was repleted IV and p.o. Troponin negative, BNP elevated nearly 3000. Chest x-ray with acute volume overload on independent interpretation. Given dimer elevated and years positive criteria, CT PE was ordered. No obvious PE on independent interpretation. He does have large bilateral effusions consistent with CHF. On reevaluation, patient resting comfortably. Given patient presentation, workup, history, this most likely represents acute volume overload in the setting of CHF and withdrawal of diuretic medications. Hospital medicine consulted and case was discussed at length, to be admitted for further evaluation, management, diuresis. Because patient high risk for clinical decompensation, deemed appropriate for inpatient admission. Results were relayed to patient who voiced understanding and patient was agreeable to inpatient admission and management. Patient was admitted to the hospital for further definitive management. [place] disclaimer Much of this encounter note is an electronic medical billing coder spoken language to printed text. Electronic medical billing coder of the spoken language may permit errors. Although I have reviewed the note, some errors may still exist.
[2024-06-01 08:17] LABS: INR 1.03 (0.9-1.1); Prothrombin Time 11.5 seconds (10.1-12.5)
[2024-06-01 08:18] LABS: Alanine Aminotransferase 17 U/L (12-78); Albumin Level 3.8 g/dl (3.5-5.0); Albumin/Globulin Ratio 1.3 (1.1-1.8); Alkaline Phosphatase 79 U/L (38-126); Anion Gap 12.2 mEq/L (5-15); Aspartate Amino Transferase 38 U/L (17-59); Bilirubin,Total 0.9 mg/dl (0.2-1.3); Blood Urea Nitrogen 8 mg/dl (9-20); Calcium 8.3 mg/dl (8.4-10.2); Carbon Dioxide 28 mmol/L (22.0-30.0); Chloride 97 mmol/L (98-107); Creatinine Clearance Estimated 78 mL/min (50-200); Estimated Glomerular Filt Rate 112 ml/min (>60); GFR (African American) 135 ML/MIN (>60); Glucose 128 mg/dl (74-100); Potassium 4.2 mmoL/L (3.5-5.1); Sodium 133 mmol/L (136-145); Total Protein,Serum 6.8 g/dl (6.3-8.2)
[2024-06-01 08:29] LABS: NT Pro Brain Natriuretic Pep. 2940 pg/mL (0-125)
[2024-06-01 08:32] LABS: Activated Partial Thrombo Time 26.6 seconds (22.8-30.6); Troponin I 0.01 ng/ml (0.00-0.034)
--- NOTE | 2024-06-01 08:32 | PC.NURSE ---
critical mag 0.8, pt name and r/v. dr nelson notified
[2024-06-01 08:33] LABS: Magnesium 0.8 mg/dl (1.6-2.3)
[2024-06-01 08:36] LABS: T4 (Thyroxine) 9.4 ug/dl (5.53-11.0)
[2024-06-01 08:46] LABS: D-Dimer 1.72 ug/mL (0.0-0.5)
[2024-06-01 08:49] LABS: Thyroid Stimulating Hormone 2.54 uIU/mL (0.465-4.68)
[2024-06-01] MEDS: MAGNESIUM SULFATE IN WATER 2 GM/50 ML PIGGYBACK IV ×2 (09:06→09:50)
[2024-06-01] MEDS: MAGNESIUM OXIDE 400MG TABLET 800 MG PO (09:06)
--- NOTE | 2024-06-01 09:22 | PC.NURSE ---
Pt had 925 ml urine output
--- NOTE | 2024-06-01 09:42 | EXP.HP ---
History of Present Illness *Admission Date: 06/01/24 *Reason for visit:: shortness of breath *History of present illness: Mr. Castro is a pleasant 69-year-old male with past history of CAD, diabetes, hypertension, hyperlipidemia, paroxysmal A-fib, current tobacco use disorder (3 packs a day), who presents with complaint of worsening shortness of breath over the past few weeks. States for at least the past week he has been having a hard time sleeping and lying down. Having to stay upright. Having some increased swelling in his legs. Denies significant cough, chest pain, nausea or vomiting. Has been out of his diuretic as he cannot get it filled until he follows with cardiology. On presentation, patient necessitating supplemental oxygen. Labs concerning for BNP of 2900, kidney function normal with BUN 8, creatinine 0.7. Chest imaging showing significant effusions bilaterally. Initiated on diuresis and medicine consulted for admission and further management. After arrival to the floor, patient is responding well to diuretics. States she is noticing subjective improvement but still necessitating 2 L oxygen. Alert and oriented. Afebrile. [facility] Disclaimer: The information contained in this section may have been updated after the patient was seen, as this information can be updated by other users. Medical History Pleural effusion, bilateral Neuropathy GERD (gastroesophageal reflux disease) Fibrosis of lung Heart attack Abnormal electrocardiogram [ECG] [EKG] DM type 2 (diabetes mellitus, type 2) HLD (hyperlipidemia) HTN (hypertension) Coronary artery disease Coronary artery calcification seen on CAT scan Social History Smoking Status: Current every day smoker tobacco type: cigarettes and pipe alcohol intake: current current occupational status: retired Travel in the last 8 weeks: None Have you lived/traveled outside US in past 30 days?: No Contact w/someone who lives/traveled outside US past 30 days?: No Exposure to someone with infectious disease in past 14 days?: No Do you have a fever (greater than 100.4 F or 38 C)?: No Have you tested positive for COVID-19: No Exposed to someone with COVID-19 in past 14 days?: No Do you have a sore throat?: No Do you have a cough?: No Do you have any weakness?: No Do you have any diarrhea?: No Are you experiencing any unusual bleeding?: No Do you have any muscle aches/pain?: No Do you have any abdominal pain?: No Are you experiencing loss of taste or smell?: No Other Medical History Have you received the Flu Vaccine for this season: No Have you received the Pneumonia Vaccine: Yes Review of Systems Review of Systems Review of systems (narrative): Review of system Meds Home Medications and Allergies Home Medications ?Medication ?Instructions ?Recorded ?Confirmed ?Type atorvastatin 80 mg tablet 80 mg PO HS 90 days #90 tabs 04/02/24 06/01/24 Rx metoprolol tartrate 25 mg tablet 25 mg PO BID 90 days #180 tabs 04/02/24 06/01/24 Rx aspirin 81 mg tablet,delayed 81 mg PO DAILY 04/07/24 06/01/24 History release clopidogrel 75 mg tablet 75 mg PO BID 04/07/24 06/01/24 History empagliflozin 25 mg tablet 25 mg PO DAILY 04/07/24 06/01/24 History (Jardiance) gabapentin 800 mg tablet 800 mg PO QID 04/07/24 06/01/24 History metformin 1,000 mg tablet 1,000 mg PO BID 04/07/24 06/01/24 History nitroglycerin 0.4 mg sublingual 0.4 mg sublingual Q5MINP PRN Chest 04/07/24 06/01/24 History tablet Pain omeprazole 40 mg capsule,delayed 40 mg PO DAILY 04/07/24 06/01/24 History release sitagliptin phosphate 100 mg 100 mg PO DAILY 04/07/24 06/01/24 History tablet (Januvia) tamsulosin 0.4 mg capsule 0.4 mg PO HS 04/07/24 06/01/24 History ticagrelor 90 mg tablet (Brilinta) 90 mg PO BID 04/07/24 06/01/24 History furosemide 40 mg tablet 40 mg PO DAILY 90 days #90 tabs 04/14/24 06/01/24 Rx New Prescriptions to Start Prescriptions: Allergies Allergy/AdvReac Type Severity Reaction Status Date / Time No Known Allergies Allergy Verified 04/14/24 13:21 Exam Data for Last 24 hours Vital signs and Labs for Last 24 Hours: Temp Pulse Resp BP Pulse Ox O2 Del Method O2 Flow Rate 97.5 F L 65 27 H 145/100 H 96 Nasal Cannula 2 06/01/24 07:55 06/01/24 09:30 06/01/24 09:30 06/01/24 09:30 06/01/24 09:30 06/01/24 09:30 06/01/24 07:55 Laboratory Results - last 24 hr 06/01/24 07:52: VBG pH 7.35, VBG pCO2 47.6, VBG pO2 26.6 L, VBG HCO3 25.5, VBG Total CO2 27.0, VBG O2 Saturation 41.5 L, VBG Base Excess -0.1, VBG Lactic Acid 1.8 06/01/24 07:58: WBC 11.2 H, RBC 4.02 L, Hgb 12.3 L, Hct 37.3 L, MCV 92.8, MCH 30.6, MCHC 33.0, RDW 15.9, Plt Count 271, MPV 9.5, Neut % (Auto) 76.8, Lymph % (Auto) 15.0, [place] % (Auto) 6.3, Eos % (Auto) 0.5, Baso % (Auto) 0.9, Neut # (Auto) 8.6 H, Lymph # (Auto) 1.7, [place] # (Auto) 0.7, Eos # (Auto) 0.1, Baso # (Auto) 0.1, PT 11.5, INR 1.03, APTT 26.6, D-Dimer 1.72 H, Sodium 133 L, Potassium 4.2, Chloride 97 L, Carbon Dioxide 28, Anion Gap 12.2, BUN 8 L, Creatinine 0.70, Estimated Creat Clear 78, Estimated GFR 112, Est GFR ( Amer) 135, Glucose 128 H, Calcium 8.3 L, Magnesium 0.8 L, Total Bilirubin 0.9, AST 38, ALT 17, Alkaline Phosphatase 79, Troponin I 0.01, NT-Pro-B Natriuret Pep 2940 H, Total Protein 6.8, Albumin 3.8, Globulin 3.0, Albumin/Globulin Ratio 1.3, TSH 2.54, Thyroxine (T4) 9.4 I & O for Last 24 hours: Intake & Output 05/29/24 05/30/24 05/31/24 06/01/24 23:59 23:59 23:59 23:59 Weight 79.379 kg Constitutional Constitutional: mild distress, average body habitus, chronically ill appearing and cooperative *Routine HEENT Exam Head: Present normocephalic Eye: Present EOMI and PERRL ENT: Present mucous membranes moist *Routine Neck Exam Neck: Present supple and JVD; Absent lymphadenopathy *Routine Respiratory Exam Respiratory: Present accessory muscle use and crackles (Posterior lung moreno bilaterally); Absent rhonchi or wheezes *Routine Cardiovascular Exam Cardiovascular: Present RRR and irregular rhythm *Routine Abdominal Exam Abdominal: Present soft and normoactive bowel sounds; Absent tenderness *Routine Rectal Exam Rectal:: deferred *Routine Genitalia Exam Genitalia:: deferred *Routine Extremities Exam Extremities: Present edema (1+ to knees); Absent cyanosis or clubbing *Routine Skin Exam Skin: Present warm; Absent rash *Routine Neurological Exam Neurological: Present alert, oriented X3 and moving all extremities; Absent altered mental status Assessment and Plan *Assessment and plan (1) Heart failure with reduced ejection fraction: Status: Acute Category: Medical Code(s): I50.20 - Unspecified systolic (congestive) heart failure (2) Pleural effusion, bilateral: Status: Acute Category: Medical Code(s): J90 - Pleural effusion, not elsewhere classified (3) Paroxysmal A-fib: Status: Acute Category: Medical Code(s): I48.0 - Paroxysmal atrial fibrillation (4) Acute hypoxemic respiratory failure: Status: Acute Category: Medical Code(s): J96.01 - Acute respiratory failure with hypoxia (5) DM type 2 (diabetes mellitus, type 2): Status: Acute Qualifiers: 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: unspecified retirement insulin use status Diabetes mellitus complication status: with other specified complication Qualified Code(s): E11.69 - Type 2 diabetes mellitus with other specified complication Category: Medical Code(s): E11.9 - Type 2 diabetes mellitus without complications (6) HLD (hyperlipidemia): Status: Acute Qualifiers: Hyperlipidemia type: unspecified Qualified Code(s): E78.5 - Hyperlipidemia, unspecified Category: Medical Code(s): E78.5 - Hyperlipidemia, unspecified (7) Coronary artery disease: Status: Chronic Qualifiers: Coronary Disease-Associated Artery/Lesion type: [place] artery [place] vs. transplanted heart: [place] heart Associated angina: with other forms of angina Qualified Code(s): I25.118 - Atherosclerotic heart disease of [place] coronary artery with other forms of angina pectoris Category: Medical Code(s): I25.10 - Atherosclerotic heart disease of [place] coronary artery without angina pectoris Plan 69-year-old male who presented with shortness of breath. Found to have CHF exacerbation. Initiate diuretics. Started on oxygen. Discussed case with ER, request admission for diuresis and further management given new oxygen requirement. I agreed to admit for further care. Responding to diuretics given in the ER. Will wean oxygen as tolerated. Problems addressed as follows: Acute on chronic heart failure with reduced ejection fraction. Hypertension Hyperlipidemia Paroxysmal A-fib -Initiated on diuretics, continue Bumex 1 mg twice daily. Goal negative fluid status. Cardiology consulted to assist with care. Will consider adjustment in diuretic pending their recommendations. -CTA per my review with no PEs. Patient has moderate to large effusions bilaterally. -Continue Plavix 75 mg daily. Patient was taking Plavix and Brilinta. Discontinue Brilinta. -Continue digoxin and Xarelto daily. -Resume metoprolol to tartrate 25 mg twice daily per home regimen. -Echocardiogram pending., Preliminary read shows stable EF of 45%. -Continue Lipitor 80 mg nightly, continue aspirin 81 mg daily -Kidney function normal with BUN 8, creatinine 0.7. Potassium 4.2. TSH 2.5. BNP 2900. Repeat CBC, CMP, magnesium ordered for the morning Acute hypoxemic respiratory failure Pleural effusions - Pulmonology consulted due to effusions and underlying lung disease. Recommend continuing oxygen as needed for goal sats greater 90%. - Will hold on performing thoracentesis at this time pending clinical improvement with diuresis. - DuoNebs 4 times a day as needed. Tobacco use disorder: Smokes 3 packs a day. Initiate on two 21 mg patches daily. Continue gabapentin 800 mg 4 times a day for neuropathy Continue Januvia 100 mg daily for diabetes Continue Jardiance 25 mg daily for diabetes Continue metformin 1000 mg twice daily for diabetes Continue PPI for GERD Continue tamsulosin 0.4 mg nightly for BPH DNR/DNI Xarelto 15 mg daily Cardiac diet
--- NOTE | 2024-06-01 09:51 | CT_ITS ---
FINAL REPORT TECHNIQUE: Thin section axial CT with contrast with multiplanar reconstruction This study was performed with techniques to keep radiation doses as low as reasonably achievable, (ALARA). Individualized dose reduction techniques using automated exposure control or adjustment of mA and/or kV according to the patient''s size were employed. CLINICAL HISTORY: elevated dimer, years + COMPARISON: 04/06/2024 FINDINGS: Pulmonary vessels enhance in normal fashion without evidence of embolism. Thoracic aorta shows no dissection or aneurysm. No pulmonary mass or infiltrate is present. Chronic interstitial changes are noted. However, interstitium is more prominent from the prior exam, possibly related to interstitial edema. There are new, moderate to large bilateral pleural effusions. There is no significant pericardial effusion. Mild mediastinal adenopathy is nonspecific and likely benign. Limited images of the upper abdomen demonstrate questionable chronic gastric wall thickening. IMPRESSION: 1. Moderate to large pleural effusions, suspect underlying CHF. 2. No pulmonary embolism or aortic dissection. Reviewed, Interpreted and Dictated by Salinas Bernard MD Transcribed by Jacquelyn Faria Authenticated and [facility]
[2024-06-01] MEDS: 0.9 % SODIUM CHLORIDE 50 ML VIAL IV (10:16)
[2024-06-01] MEDS: SODIUM CHLORIDE 0.9% 10ML SYR (RAD ONLY) 10 ML IV (10:16)
[2024-06-01] MEDS: IOPAMIDOL-370 (76%);100ML BOTTLE 80 ML IV (10:16)
--- NOTE | 2024-06-01 10:51 | PC.NURSE ---
arrived by w/c from ED
--- NOTE | 2024-06-01 11:07 | CA_ITS ---
APPROVED REPORT EXAM: Limited 2D Echocardiogram Service Dispatcher: Karen Gonzalez CRT Ht: 5 ft 8 in Wt: 185lbs BSA: 1.98 BP: 145/100 mmHg Indications: EF CHECK, HTN, DM, HLD, 11 STENTS 2D Dimensions Left Atrium 5.09 cm LVEF (Goncalves's) 61.00 % LV Volume 100.80 mL EF AP4 73.70 % EF AP2 32.4 % EF BP 61.0 % GL Strain -14.0 % M-Mode Dimensions RVDd 2.60 cm (0.9-2.6) LVDd 5.67 cm (3.5-5.7) Ao Diam 4.60 cm (2.0-3.7) LVDs 3.78 cm (3.5-5.7) IVSd 0.89 cm (0.6-1.1) PWd 0.57 cm (0.6-1.1) EF (Teich) 61.30% FS 33.30% EDV (Teich) 158.10 mL ESV (Teich) 61.20 mL Other Information Study Quality: Fair Conclusion This is a limited TTE to evaluate for LV systolic function. Limited windows are obtained. The left ventricle is normal in size. There is increased LV wall thickness. There is mild global hypokinesis present. No regional wall motion abnormalities are noted. LVEF is 45%. Compared to prior study from 04/06/2024, the LVEF is unchanged. Electronically signed by : Lorraine Koroma MD 06/01/2024 12:38:49
--- NOTE | 2024-06-01 11:24 | P.CONCA_ITS ---
History of Present Illness History of Present Illness Consult date: 06/01/24 Requesting physician: Jose Galvez Consult reason: shortness of breath Chief complaint: soa History of present illness: This is a 69-year-old white male with past medical history of coronary artery disease status post stenting February 2024 at [place], diabetes mellitus, hypertension, hyperlipidemia, current tobacco user, paroxysmal atrial fibrillation and history of heart failure with reduced ejection fraction who presented to emergency department with complaints of increased shortness of breath for last few weeks. Patient also endorses orthopnea and lower extremity edema. Denies chest pain. Reports has been out of diuretic due to pharmacy will not fill until he sees a title investigator. Upon presentation to emergency department initial oxygen saturation was 96% on 2 L. EKG showed normal sinus rhythm at a rate of 75 without acute ischemic changes noted. Hypomagnesia was present at 0.8 and repleted with IV and p.o. meds. Mild hyponatremia was noted. Troponin was negative. BNP elevated to nearly 3000. Patient had elevated D- dimer so CT PE protocol was ordered which was negative for PE but did show findings of CHF. Was diuresed with 60 mg IV Lasix x 1 in the emergency department and admitted for further evaluation for CHF exacerbation. [facility] Disclaimer: The information contained in this section may have been updated after the patient was seen, as this information can be updated by other users. Medical History Neuropathy GERD (gastroesophageal reflux disease) Fibrosis of lung Heart attack Abnormal electrocardiogram [ECG] [EKG] DM type 2 (diabetes mellitus, type 2) HLD (hyperlipidemia) HTN (hypertension) Coronary artery disease Coronary artery calcification seen on CAT scan Social History (Updated 06/01/24 @ 11:50 by Jeimy Brock RN) Smoking Status: Current every day smoker tobacco type: cigarettes and pipe alcohol intake: current current occupational status: retired Travel in the last 8 weeks: None Have you lived/traveled outside US in past 30 days?: No Contact w/someone who lives/traveled outside US past 30 days?: No Exposure to someone with infectious disease in past 14 days?: No Do you have a fever (greater than 100.4 F or 38 C)?: No Have you tested positive for COVID-19: No Exposed to someone with COVID-19 in past 14 days?: No Do you have a sore throat?: No Do you have a cough?: No Do you have any weakness?: No Do you have any diarrhea?: No Are you experiencing any unusual bleeding?: No Do you have any muscle aches/pain?: No Do you have any abdominal pain?: No Are you experiencing loss of taste or smell?: No Review of Systems Review of Systems Review of systems:: pertinent systems reviewed and negative unless documented below *Cardiovascular Cardiovascular: Denies chest pain and Reports dyspnea Comments: orthopnea and LE edema *Respiratory Respiratory: Reports dyspnea Exam Data for Last 24 hours Vital signs and Labs for Last 24 Hours: Temp Pulse Resp BP Pulse Ox O2 Del Method O2 Flow Rate 97.7 F 58 L 20 136/72 95 Nasal Cannula 2 06/01/24 10:20 06/01/24 10:50 06/01/24 10:50 06/01/24 10:50 06/01/24 10:50 06/01/24 10:50 06/01/24 10:50 Laboratory Results - last 24 hr 06/01/24 07:52: VBG pH 7.35, VBG pCO2 47.6, VBG pO2 26.6 L, VBG HCO3 25.5, VBG Total CO2 27.0, VBG O2 Saturation 41.5 L, VBG Base Excess -0.1, VBG Lactic Acid 1.8 06/01/24 07:58: WBC 11.2 H, RBC 4.02 L, Hgb 12.3 L, Hct 37.3 L, MCV 92.8, MCH 30.6, MCHC 33.0, RDW 15.9, Plt Count 271, MPV 9.5, Neut % (Auto) 76.8, Lymph % (Auto) 15.0, [place] % (Auto) 6.3, Eos % (Auto) 0.5, Baso % (Auto) 0.9, Neut # (Auto) 8.6 H, Lymph # (Auto) 1.7, [place] # (Auto) 0.7, Eos # (Auto) 0.1, Baso # (Auto) 0.1, PT 11.5, INR 1.03, APTT 26.6, D-Dimer 1.72 H, Sodium 133 L, Potassium 4.2, Chloride 97 L, Carbon Dioxide 28, Anion Gap 12.2, BUN 8 L, Creatinine 0.70, Estimated Creat Clear 78, Estimated GFR 112, Est GFR ( Amer) 135, Glucose 128 H, Calcium 8.3 L, Magnesium 0.8 L, Total Bilirubin 0.9, AST 38, ALT 17, Alkaline Phosphatase 79, Troponin I 0.01, NT-Pro-B Natriuret Pep 2940 H, Total Protein 6.8, Albumin 3.8, Globulin 3.0, Albumin/Globulin Ratio 1.3, TSH 2.54, Thyroxine (T4) 9.4 I & O for Last 24 hours: Intake & Output 05/29/24 05/30/24 05/31/24 06/01/24 23:59 23:59 23:59 23:59 Intake Total 120 / 120 Output Total 2850 / 2850 Balance -2730 / -2730 Weight 185 lb Constitutional Constitutional: no acute distress *Routine Respiratory Exam Respiratory: Present CTA bilaterally, rhonchi and symmetric chest movement *Routine Cardiovascular Exam Cardiovascular: Present RRR, Normal S1 and Normal S2 *Routine Abdominal Exam Abdominal: Present soft and normoactive bowel sounds; Absent tenderness *Routine Extremities Exam Extremities: Present edema, full ROM and normal capillary refill *Routine Skin Exam Skin: Present intact, dry and warm Detailed Neck Exam: Thyroids Thyroid: Absent bruit Meds Home Medications and Allergies Home Medications ?Medication ?Instructions ?Recorded ?Confirmed ?Type atorvastatin 80 mg tablet 80 mg PO HS 90 days #90 tabs 04/02/24 06/01/24 Rx metoprolol tartrate 25 mg tablet 25 mg PO BID 90 days #180 tabs 04/02/24 06/01/24 Rx aspirin 81 mg tablet,delayed 81 mg PO DAILY 04/07/24 06/01/24 History release clopidogrel 75 mg tablet 75 mg PO BID 04/07/24 06/01/24 History empagliflozin 25 mg tablet 25 mg PO DAILY 04/07/24 06/01/24 History (Jardiance) gabapentin 800 mg tablet 800 mg PO QID 04/07/24 06/01/24 History metformin 1,000 mg tablet 1,000 mg PO BID 04/07/24 06/01/24 History nitroglycerin 0.4 mg sublingual 0.4 mg sublingual Q5MINP PRN Chest 04/07/24 06/01/24 History tablet Pain omeprazole 40 mg capsule,delayed 40 mg PO DAILY 04/07/24 06/01/24 History release sitagliptin phosphate 100 mg 100 mg PO DAILY 04/07/24 06/01/24 History tablet (Januvia) tamsulosin 0.4 mg capsule 0.4 mg PO HS 04/07/24 06/01/24 History ticagrelor 90 mg tablet (Brilinta) 90 mg PO BID 04/07/24 06/01/24 History furosemide 40 mg tablet 40 mg PO DAILY 90 days #90 tabs 04/14/24 06/01/24 Rx New Prescriptions to Start Prescriptions: Allergies Allergy/AdvReac Type Severity Reaction Status Date / Time No Known Allergies Allergy Verified 04/14/24 13:21 Assessment and Plan *Assessment and plan (1) HLD (hyperlipidemia): Status: Acute Qualifiers: Hyperlipidemia type: unspecified Qualified Code(s): E78.5 - Hyperlipidemia, unspecified Category: Medical Code(s): E78.5 - Hyperlipidemia, unspecified (2) Coronary artery disease: Status: Chronic Qualifiers: Associated angina: with other forms of angina Coronary Disease- Associated Artery/Lesion type: [place] artery [place] vs. transplanted heart: [place] heart Qualified Code(s): I25.118 - Atherosclerotic heart disease of [place] coronary artery with other forms of angina pectoris Category: Medical Code(s): I25.10 - Atherosclerotic heart disease of [place] coronary artery without angina pectoris (3) HTN (hypertension): Status: Acute Qualifiers: Hypertension type: unspecified Qualified Code(s): I10 - Essential (primary) hypertension Category: Medical Code(s): I10 - Essential (primary) hypertension (4) Paroxysmal A-fib: Status: Acute Category: Medical Code(s): I48.0 - Paroxysmal atrial fibrillation (5) Heart failure with reduced ejection fraction: Status: Acute Category: Medical Code(s): I50.20 - Unspecified systolic (congestive) heart failure Plan Acute on chronic heart failure reduced EF 03/2024 EF 45, repeat limited shows same, no change Patient was given Lasix 60 mg IV x 1 in the ER Will resume home dose of Lasix 40 mg p.o. daily CTA negative for PE, does show moderate to large pleural effusions History of coronary artery disease Recent stenting February 2024 at [place] Patient denies chest pain Troponin negative EKG negative for acute ischemic changes Continue Plavix and statin History of paroxysmal atrial fibrillation Chadsvasc > 2 Currently normal sinus rhythm Continue digoxin and Xarelto Dig level pending CV summary 06/01/2024: Resume home Lasix 40 mg p.o. daily. Repeat echo pending. CV meds: Digoxin 0.125 mcg p.o. daily Xarelto 50 mg p.o. daily Plavix 75 mg p.o. daily Atorvastatin 80 mg p.o. daily Lasix 40 mg p.o. daily
[2024-06-01] MEDS: NICOTINE 21MG/24HR PATCH 42 MG TD (11:44)
[2024-06-01 11:55] LABS: Troponin I 0.02 ng/ml (0.00-0.034)
--- NOTE | 2024-06-01 12:04 | HMH.PHAINT1 ---
Pharmacy Intervention Comments: VERIFIED MEDICATIONS WITH OUTPATIENT PHARMACY, CONFIRMED WITH PATIENT.
[2024-06-01 12:42] LABS: Digoxin < 0.40 ng/ml (0.2-2.00)
[2024-06-01 15:01] LABS: Troponin I 0.03 ng/ml (0.00-0.034)
--- NOTE | 2024-06-01 16:09 | P.CONS_ITS ---
History of Present Illness History of present illness: Ms. Castro is a 69-year-old male history of tobacco abuse, pulmonary emphysema on the CT scan, not using any oxygen supplementation or inhalers at baseline CAD status post stenting type 2 diabetes mellitus, bilateral subpleural interstitial changes both upper lobe and lower lobe with lower lobe predominance relatively stable from her CT scan from September 2022. to ER with worsening respiratory distress and pulmonary was called for further evaluation and management. Patient denies any subjective fevers or chills per denies any worsening cough/productive phlegm. Denies any known sick contacts but admits gradually worsening respiratory distress. [facility] Disclaimer: The information contained in this section may have been updated after the patient was seen, as this information can be updated by other users. Medical History (Updated 06/01/24 @ 16:10 by Obie Brown MD) Pleural effusion, bilateral Neuropathy GERD (gastroesophageal reflux disease) Fibrosis of lung Heart attack Abnormal electrocardiogram [ECG] [EKG] DM type 2 (diabetes mellitus, type 2) HLD (hyperlipidemia) HTN (hypertension) Coronary artery disease Coronary artery calcification seen on CAT scan Social History (Updated 06/01/24 @ 11:50 by Jeimy Brock RN) Smoking Status: Current every day smoker tobacco type: cigarettes and pipe alcohol intake: current current occupational status: retired Travel in the last 8 weeks: None Have you lived/traveled outside US in past 30 days?: No Contact w/someone who lives/traveled outside US past 30 days?: No Exposure to someone with infectious disease in past 14 days?: No Do you have a fever (greater than 100.4 F or 38 C)?: No Have you tested positive for COVID-19: No Exposed to someone with COVID-19 in past 14 days?: No Do you have a sore throat?: No Do you have a cough?: No Do you have any weakness?: No Do you have any diarrhea?: No Are you experiencing any unusual bleeding?: No Do you have any muscle aches/pain?: No Do you have any abdominal pain?: No Are you experiencing loss of taste or smell?: No Review of Systems Constitutional Constitutional: Reports anorexia, Reports body ache(s) and Reports fatigue Eyes Eyes: Denies eye discharge, Denies dry eyes, Denies irritation and Denies itchy eyes ENT Ears, Nose, Mouth, and Throat: Denies epistaxis, Denies facial pain, Denies lip swelling and Denies throat swelling *Cardiovascular Cardiovascular: Reports dyspnea, Reports dyspnea on exertion, Reports leg edema and Reports orthopnea *Respiratory Respiratory: Denies change in phlegm color, Reports chest congestion, Reports cough, Reports dyspnea, Reports dyspnea on exertion, Denies excessive phlegm production, Denies hemoptysis, Denies pain on inspiration, Denies pain with cough and Denies wheezing *Gastrointestinal Gastrointestinal: Denies abdominal pain, Denies belching and Denies cramping *Musculoskeletal Musculoskeletal: Reports back pain, Reports myalgias and Reports other (No small joint swelling or Pain) Psychiatric Psychiatric: Denies homicidal ideation and Denies suicidal ideation Endocrine Endocrine: Reports fatigue and Denies heat intolerance Hematologic/Lymphatic Hematologic/Lymphatic: Denies easy bleeding and Denies lymphadenopathy Allergic/Immunologic Allergic/Immunologic: Denies itchy eyes, Denies lip swelling, Denies throat swelling and Denies wheezing Pulmonology Exam Inpatient Vital signs and Labs for Last 24 Hours: Temp Pulse Resp BP Pulse Ox O2 Del Method O2 Flow Rate 97.5 F L 60 18 109/57 L 99 Nasal Cannula 2 06/01/24 15:40 06/01/24 15:40 06/01/24 15:40 06/01/24 15:40 06/01/24 15:40 06/01/24 15:40 06/01/24 15:40 Laboratory Results - last 24 hr 06/01/24 07:52: VBG pH 7.35, VBG pCO2 47.6, VBG pO2 26.6 L, VBG HCO3 25.5, VBG Total CO2 27.0, VBG O2 Saturation 41.5 L, VBG Base Excess -0.1, VBG Lactic Acid 1.8 06/01/24 07:58: WBC 11.2 H, RBC 4.02 L, Hgb 12.3 L, Hct 37.3 L, MCV 92.8, MCH 30.6, MCHC 33.0, RDW 15.9, Plt Count 271, MPV 9.5, Neut % (Auto) 76.8, Lymph % (Auto) 15.0, [place] % (Auto) 6.3, Eos % (Auto) 0.5, Baso % (Auto) 0.9, Neut # (Auto) 8.6 H, Lymph # (Auto) 1.7, [place] # (Auto) 0.7, Eos # (Auto) 0.1, Baso # (Auto) 0.1, PT 11.5, INR 1.03, APTT 26.6, D-Dimer 1.72 H, Sodium 133 L, Potassium 4.2, Chloride 97 L, Carbon Dioxide 28, Anion Gap 12.2, BUN 8 L, Creatinine 0.70, Estimated Creat Clear 78, Estimated GFR 112, Est GFR ( Amer) 135, Glucose 128 H, Calcium 8.3 L, Magnesium 0.8 L, Total Bilirubin 0.9, AST 38, ALT 17, Alkaline Phosphatase 79, Troponin I 0.01, NT-Pro-B Natriuret Pep 2940 H, Total Protein 6.8, Albumin 3.8, Globulin 3.0, Albumin/Globulin Ratio 1.3, TSH 2.54, Thyroxine (T4) 9.4 06/01/24 11:08: Troponin I 0.02 06/01/24 12:07: Digoxin < 0.40 06/01/24 14:20: Troponin I 0.03 I & O for Labs for Last 24 Hours: Intake & Output 05/29/24 05/30/24 05/31/24 06/01/24 23:59 23:59 23:59 23:59 Intake Total 120 / 120 Output Total 5425 / 5425 Balance -5305 / -5305 Weight 185 lb Constitutional: Present moderate distress Head: Present normocephalic and atraumatic ENT: Present normal exam, normal oropharynx and mucous membranes moist Neck: Present normal inspection and full ROM Respiratory: Present respiratory distress, crackles, diminished air movement and able to speak in complete sentences; Absent rhonchi or wheezes Cardiac: Present S1/S2, Tachycardia and radial pulses present GI: Present soft and distention; Absent tenderness or guarding Skin: Present intact; Absent cyanosis or jaundice Neuro: Present alert, awake and oriented x 3 Extremities: Present normal inspection; Absent clubbing or cyanosis Psychiatric: Present normal affect and cooperative Meds Home Medications and Allergies Home Medications ?Medication ?Instructions ?Recorded ?Confirmed ?Type atorvastatin 80 mg tablet 80 mg PO HS 90 days #90 tabs 04/02/24 06/01/24 Rx metoprolol tartrate 25 mg tablet 25 mg PO BID 90 days #180 tabs 04/02/24 06/01/24 Rx aspirin 81 mg tablet,delayed 81 mg PO DAILY 04/07/24 06/01/24 History release clopidogrel 75 mg tablet 75 mg PO BID 04/07/24 06/01/24 History empagliflozin 25 mg tablet 25 mg PO DAILY 04/07/24 06/01/24 History (Jardiance) gabapentin 800 mg tablet 800 mg PO QID 04/07/24 06/01/24 History metformin 1,000 mg tablet 1,000 mg PO BID 04/07/24 06/01/24 History nitroglycerin 0.4 mg sublingual 0.4 mg sublingual Q5MINP PRN Chest 04/07/24 06/01/24 History tablet Pain omeprazole 40 mg capsule,delayed 40 mg PO DAILY 04/07/24 06/01/24 History release sitagliptin phosphate 100 mg 100 mg PO DAILY 04/07/24 06/01/24 History tablet (Januvia) tamsulosin 0.4 mg capsule 0.4 mg PO HS 04/07/24 06/01/24 History ticagrelor 90 mg tablet (Brilinta) 90 mg PO BID 04/07/24 06/01/24 History furosemide 40 mg tablet 40 mg PO DAILY 90 days #90 tabs 04/14/24 06/01/24 Rx New Prescriptions to Start Prescriptions: Allergies Allergy/AdvReac Type Severity Reaction Status Date / Time No Known Allergies Allergy Verified 04/14/24 13:21 Results Laboratory Findings 06/01/24 07:58 06/01/24 07:58 PT/INR, D-dimer PT 11.5 seconds (10.1-12.5) 06/01/24 07:58 INR 1.03 (0.9-1.1) 06/01/24 07:58 D-Dimer 1.72 ug/mL (0.0-0.5) H 06/01/24 07:58 Abnormal lab findings: Abnormal Labs 06/01/24 06/01/24 07:52 07:58 WBC 11.2 H RBC 4.02 L Hgb 12.3 L Hct 37.3 L Neut # (Auto) 8.6 H D-Dimer 1.72 H VBG pO2 26.6 L VBG O2 Saturation 41.5 L Sodium 133 L Chloride 97 L BUN 8 L Glucose 128 H Calcium 8.3 L Magnesium 0.8 L NT-Pro-B Natriuret Pep 2940 H Assessment and Plan *Assessment and plan (1) Pleural effusion, bilateral: Status: Acute Category: Medical Code(s): J90 - Pleural effusion, not elsewhere classified (2) Acute hypoxemic respiratory failure: Status: Acute Category: Medical Code(s): J96.01 - Acute respiratory failure with hypoxia (3) Fibrosis of lung: Status: Acute Category: Medical Code(s): J84.10 - Pulmonary fibrosis, unspecified Plan Ms. Castro is a 69-year-old male history of tobacco abuse, pulmonary emphysema on the CT scan, not using any oxygen supplementation or inhalers at baseline CAD status post stenting type 2 diabetes mellitus, bilateral subpleural interstitial changes both upper lobe and lower lobe with lower lobe predominance relatively stable from her CT scan from September 2022. to ER with worsening respiratory distress and pulmonary was called for further evaluation and management. Patient denies any subjective fevers or chills per denies any worsening cough/productive phlegm. Denies any known sick contacts but admits gradually worsening respiratory distress. Patient admission found to have bilateral moderate to large pleural effusions equal on both sides. Concerning for heart failure exacerbation currently receiving diuretics. New oxygen requirements on 2 L. Does not appear to be in any respiratory distress. No other airspace disease/consolidative changes noted. Plan: Continue NC oxygen supplementation to maintain O2 saturation goal of 90% and above. Currently on 2 L Will hold off on performing thoracentesis at this point of time pending clinical improvement DuoNebs 4 times daily PRN
[2024-06-01] MEDS: RIVAROXABAN 15MG TABLET 15 MG PO (17:02)
[2024-06-01 17:38] LABS: Chloride 93 mmol/L (98-107)
[2024-06-01 17:39] LABS: Potassium 4.2 mmoL/L (3.5-5.1); Sodium 130 mmol/L (136-145)
[2024-06-01 17:41] LABS: Blood Urea Nitrogen 12 mg/dl (9-20); Creatinine Clearance Estimated 83 mL/min (50-200); Estimated Glomerular Filt Rate 84 ml/min (>60); GFR (African American) 101 ML/MIN (>60)
[2024-06-01 17:42] LABS: Anion Gap 9.2 mEq/L (5-15); Calcium 8.7 mg/dl (8.4-10.2); Carbon Dioxide 32 mmol/L (22.0-30.0); Glucose 130 mg/dl (74-100); Magnesium 1.7 mg/dl (1.6-2.3)
[2024-06-01] MEDS: ATORVASTATIN 40MG TABLET 80 MG PO (20:24)
[2024-06-01] MEDS: METOPROLOL TARTRATE 25MG TABLET 25 MG PO (22:11)
[2024-06-01] MEDS: TAMSULOSIN 0.4MG CAPSULE 0.4 MG PO (22:11)
[2024-06-02 04:00] VITALS: BP 103/72; PULSE 60; RESP 16; TEMP 36.4; O2SAT 98; BMI 26.2
--- NOTE | 2024-06-02 05:18 | PC.NURSE ---
Pt A&OX4. He has been weaned to room air and is tolerating well. He has ambulated the room independently. Pt has been diuresing with good urine output. Has not had any complaints this shift. Currently laying in bed with call light within reach.
[2024-06-02 07:07] LABS: Basophils # 0.1 K/mm3 (0-0.2); Basophils % 0.8 % (0.1-2.0); Eosinophils # 0.1 K/mm3 (0.0-0.4); Eosinophils % 1.3 % (0.1-12.0); Hematocrit 36.7 % (42.0-52.0); Hemoglobin 12.4 g/dL (14.1-18.0); Lymphocytes # 1.8 K/mm3 (0.7-4.5); Lymphocytes % 20.8 % (10-50); Mean Corpuscular HGB Conc 33.8 g/dL (31.8-35.4); Mean Corpuscular Hemoglobin 30.4 pg (27.0-31.2); Mean Platelet Volume 9.5 fl (7.4-10.4); Monocytes # 0.8 K/mm3 (0.1-1.0); Monocytes % 9.6 % (1.7-9.3); Neutrophils # 5.7 K/mm3 (1.8-7.8); Neutrophils % 67.1 % (37.0-80.0); Platelet Count 264 K/mm3 (142-424); Red Blood Count 4.08 M/mm3 (4.60-6.20); Red Cell Distribution Width 15.4 % (11.5-17.5); White Blood Count 8.5 K/mm3 (4.8-10.8)
[2024-06-02 07:17] LABS: Alanine Aminotransferase 14 U/L (12-78); Albumin Level 3.7 g/dl (3.5-5.0); Albumin/Globulin Ratio 1.2 (1.1-1.8); Alkaline Phosphatase 86 U/L (38-126); Anion Gap 9.1 mEq/L (5-15); Aspartate Amino Transferase 37 U/L (17-59); Bilirubin,Total 0.7 mg/dl (0.2-1.3); Blood Urea Nitrogen 11 mg/dl (9-20); Calcium 8.6 mg/dl (8.4-10.2); Carbon Dioxide 32 mmol/L (22.0-30.0); Chloride 95 mmol/L (98-107); Creatinine Clearance Estimated 79 mL/min (50-200); Estimated Glomerular Filt Rate 84 ml/min (>60); GFR (African American) 101 ML/MIN (>60); Glucose 121 mg/dl (74-100); Magnesium 1.7 mg/dl (1.6-2.3); Potassium 4.1 mmoL/L (3.5-5.1); Sodium 132 mmol/L (136-145); Total Protein,Serum 6.7 g/dl (6.3-8.2)
--- NOTE | 2024-06-02 07:18 | EXP.DC.SUM ---
General Admission date:: 06/01/24 Discharge date: 06/02/24 HPI HPI HPI: Mr. Castro is a pleasant 69-year-old male with past history of CAD, diabetes, hypertension, hyperlipidemia, paroxysmal A-fib, current tobacco use disorder (3 packs a day), who presents with complaint of worsening shortness of breath over the past few weeks. States for at least the past week he has been having a hard time sleeping and lying down. Having to stay upright. Having some increased swelling in his legs. Denies significant cough, chest pain, nausea or vomiting. Has been out of his diuretic as he cannot get it filled until he follows with cardiology. On presentation, patient necessitating supplemental oxygen. Labs concerning for BNP of 2900, kidney function normal with BUN 8, creatinine 0.7. Chest imaging showing significant effusions bilaterally. Initiated on diuresis and medicine consulted for admission and further management. After arrival to the floor, patient is responding well to diuretics. States she is noticing subjective improvement but still necessitating 2 L oxygen. Alert and oriented. Afebrile. Hospital Course Hospital Course Hospital Course: 69-year-old male who presented with shortness of breath. Found to have CHF exacerbation. Initiate diuretics. Started on oxygen. Discussed case with ER, request admission for diuresis and further management given new oxygen requirement. I agreed to admit for further care. Responded very well to diuretics. Able to wean to room air. Diuresed over 5 L. Cardiology and pulmonology assisted with care. Stable to discharge home with further management as an outpatient. Problems addressed as follows: Acute on chronic heart failure with reduced ejection fraction. Hypertension Hyperlipidemia Paroxysmal A-fib -Presented with shortness of breath. Kidney function normal with BUN 8, creatinine 0.7. Potassium 4.2. TSH 2.5. BNP 2900. Patient was initiated on diuretics. Given Bumex in the ER. Began to have a brisk response. Continued Bumex 1 mg twice daily while admitted. Negative over 5 L since admission. Cardiology was consulted, recommended adjusting diuretic regimen for discharge. CTA of his chest was obtained that showed no PEs. Had moderate to large bilateral effusions. Pulmonology was consulted, no plan for thoracentesis at this time. Will monitor for improvement with diuresis. Plan to continue Plavix 75 mg daily, digoxin, Xarelto for his paroxysmal A-fib. Continue metoprolol tartrate 25 mg twice daily per home regimen. Echo was obtained with preliminary read showing EF of 45%. Continue Lipitor 80 mg nightly, continue aspirin 81 mg daily. Kidney function remained stable. Breathing better by morning. Discharged home for further management as an outpatient. Acute hypoxemic respiratory failure Pleural effusions - Pulmonology consulted due to effusions and underlying lung disease. Recommend continuing oxygen as needed for goal sats greater 90%. Weaned to room air with negative fluid status. Recommend holding on thoracentesis at this time. Follow-up as an outpatient. Tobacco use disorder: Smokes 3 packs a day. Initiated on nicotine patches. Discharged with prescription. Patient interested in stopping smoking Continue gabapentin 800 mg 4 times a day for neuropathy Continue Januvia 100 mg daily for diabetes Continue Jardiance 25 mg daily for diabetes Continue metformin 1000 mg twice daily for diabetes Continue PPI for GERD Continue tamsulosin 0.4 mg nightly for BPH Exam Data for Last 24 hours Vital signs and Labs for Last 24 Hours: Temp Pulse Resp BP Pulse Ox O2 Del Method O2 Flow Rate 97.6 F 60 16 103/72 L 98 Room Air 1 06/02/24 04:00 06/02/24 04:00 06/02/24 04:00 06/02/24 04:00 06/02/24 04:00 06/02/24 06:41 06/02/24 04:00 Laboratory Results - last 24 hr 06/01/24 07:52: VBG pH 7.35, VBG pCO2 47.6, VBG pO2 26.6 L, VBG HCO3 25.5, VBG Total CO2 27.0, VBG O2 Saturation 41.5 L, VBG Base Excess -0.1, VBG Lactic Acid 1.8 06/01/24 07:58: WBC 11.2 H, RBC 4.02 L, Hgb 12.3 L, Hct 37.3 L, MCV 92.8, MCH 30.6, MCHC 33.0, RDW 15.9, Plt Count 271, MPV 9.5, Neut % (Auto) 76.8, Lymph % (Auto) 15.0, Crook % (Auto) 6.3, Eos % (Auto) 0.5, Baso % (Auto) 0.9, Neut # (Auto) 8.6 H, Lymph # (Auto) 1.7, [place]ok # (Auto) 0.7, Eos # (Auto) 0.1, Baso # (Auto) 0.1, PT 11.5, INR 1.03, APTT 26.6, D-Dimer 1.72 H, Sodium 133 L, Potassium 4.2, Chloride 97 L, Carbon Dioxide 28, Anion Gap 12.2, BUN 8 L, Creatinine 0.70, Estimated Creat Clear 78, Estimated GFR 112, Est GFR ( Amer) 135, Glucose 128 H, Calcium 8.3 L, Magnesium 0.8 L, Total Bilirubin 0.9, AST 38, ALT 17, Alkaline Phosphatase 79, Troponin I 0.01, NT-Pro-B Natriuret Pep 2940 H, Total Protein 6.8, Albumin 3.8, Globulin 3.0, Albumin/Globulin Ratio 1.3, TSH 2.54, Thyroxine (T4) 9.4 06/01/24 11:08: Troponin I 0.02 06/01/24 12:07: Digoxin < 0.40 06/01/24 14:20: Troponin I 0.03 06/01/24 16:39: Sodium 130 L, Potassium 4.2, Chloride 93 L, Carbon Dioxide 32 H, Anion Gap 9.2, BUN 12 D, Creatinine 0.90 D, Estimated Creat Clear 83, Estimated GFR 84, Est GFR ( Amer) 101 D, Glucose 130 H, Calcium 8.7, Magnesium 1.7 D I & O for Last 24 hours: Intake & Output 05/30/24 05/31/24 06/01/24 06/02/24 23:59 23:59 23:59 23:59 Intake Total 980 / 1330 350 / 350 Output Total 5925 / 6425 800 / 800 Balance -4945 / -5095 -450 / -450 Weight 83.915 kg 80.331 kg Constitutional Constitutional: no acute distress, average body habitus, chronically ill appearing and cooperative *Routine HEENT Exam Head: Present normocephalic Eye: Present EOMI and PERRL ENT: Present mucous membranes moist *Routine Neck Exam Neck: Present supple; Absent lymphadenopathy *Routine Respiratory Exam Respiratory: Present prolonged expiratory phase; Absent rhonchi, wheezes or crackles *Routine Cardiovascular Exam Cardiovascular: Present RRR *Routine Abdominal Exam Abdominal: Present soft and normoactive bowel sounds; Absent tenderness *Routine Rectal Exam Patient deferred: visual exam *Routine Exam Patient deferred: penile exam *Routine Extremities Exam Extremities: Absent cyanosis, clubbing or edema *Routine Skin Exam Skin: Present warm; Absent rash *Routine Neurological Exam Neurological: Present alert, oriented X3 and moving all extremities; Absent altered mental status Routine Psychiatric Exam Psychiatric: Present normal affect Results Data Completed and Pending Labs on day of discharge: Labs from last 24 hours 06/01/24 06/01/24 06/01/24 16:39 14:20 12:07 WBC RBC Hgb Hct MCV MCH MCHC RDW Plt Count MPV Neut % (Auto) Lymph % (Auto) [place]ok % (Auto) Eos % (Auto) Baso % (Auto) Neut # (Auto) Lymph # (Auto) Crook # (Auto) Eos # (Auto) Baso # (Auto) PT INR APTT D-Dimer VBG pH VBG pCO2 VBG pO2 VBG HCO3 VBG Total CO2 VBG O2 Saturation VBG Base Excess VBG Lactic Acid Sodium 130 L Potassium 4.2 Chloride 93 L Carbon Dioxide 32 H Anion Gap 9.2 BUN 12 D Creatinine 0.90 D Estimated Creat Clear 83 Estimated GFR 84 Est GFR ( Amer) 101 D Glucose 130 H Calcium 8.7 Magnesium 1.7 D Total Bilirubin AST ALT Alkaline Phosphatase Troponin I 0.03 NT-Pro-B Natriuret Pep Total Protein Albumin Globulin Albumin/Globulin Ratio TSH Thyroxine (T4) Digoxin < 0.40 06/01/24 06/01/24 06/01/24 11:08 07:58 07:52 WBC 11.2 H RBC 4.02 L Hgb 12.3 L Hct 37.3 L MCV 92.8 MCH 30.6 MCHC 33.0 RDW 15.9 Plt Count 271 MPV 9.5 Neut % (Auto) 76.8 Lymph % (Auto) 15.0 Crook % (Auto) 6.3 Eos % (Auto) 0.5 Baso % (Auto) 0.9 Neut # (Auto) 8.6 H Lymph # (Auto) 1.7 Crook # (Auto) 0.7 Eos # (Auto) 0.1 Baso # (Auto) 0.1 PT 11.5 INR 1.03 APTT 26.6 D-Dimer 1.72 H VBG pH 7.35 VBG pCO2 47.6 VBG pO2 26.6 L VBG HCO3 25.5 VBG Total CO2 27.0 VBG O2 Saturation 41.5 L VBG Base Excess -0.1 VBG Lactic Acid 1.8 Sodium 133 L Potassium 4.2 Chloride 97 L Carbon Dioxide 28 Anion Gap 12.2 BUN 8 L Creatinine 0.70 Estimated Creat Clear 78 Estimated GFR 112 Est GFR ( Amer) 135 Glucose 128 H Calcium 8.3 L Magnesium 0.8 L Total Bilirubin 0.9 AST 38 ALT 17 Alkaline Phosphatase 79 Troponin I 0.02 0.01 NT-Pro-B Natriuret Pep 2940 H Total Protein 6.8 Albumin 3.8 Globulin 3.0 Albumin/Globulin Ratio 1.3 TSH 2.54 Thyroxine (T4) 9.4 Digoxin DS: Diagnosis Discharge Diagnosis (1) Heart failure with reduced ejection fraction: Status: Acute Code(s): I50.20 - Unspecified systolic (congestive) heart failure (2) Pleural effusion, bilateral: Status: Acute Code(s): J90 - Pleural effusion, not elsewhere classified (3) Paroxysmal A-fib: Status: Acute Code(s): I48.0 - Paroxysmal atrial fibrillation (4) Acute hypoxemic respiratory failure: Status: Acute Code(s): J96.01 - Acute respiratory failure with hypoxia (5) DM type 2 (diabetes mellitus, type 2): Status: Acute Code(s): E11.9 - Type 2 diabetes mellitus without complications Qualifiers: Diabetes mellitus complication status: with other specified complication Diabetes mellitus prison insulin use: unspecified long term acute care registered nurse insulin use status Qualified Code(s): E11.69 - Type 2 diabetes mellitus with other specified complication (6) HLD (hyperlipidemia): Status: Acute Code(s): E78.5 - Hyperlipidemia, unspecified Qualifiers: Hyperlipidemia type: unspecified Qualified Code(s): E78.5 - Hyperlipidemia, unspecified (7) Coronary artery disease: Status: Chronic Code(s): I25.10 - Atherosclerotic heart disease of [place] coronary artery without angina pectoris Qualifiers: Associated angina: with other forms of angina Coronary Disease-Associated Artery/Lesion type: [place] artery [place] vs. transplanted heart: [place] heart Qualified Code(s): I25.118 - Atherosclerotic heart disease of [place] coronary artery with other forms of angina pectoris Meds Home Medications and Allergies Home Medications ?Medication ?Instructions ?Recorded ?Confirmed ?Type atorvastatin 80 mg tablet 80 mg PO HS 90 days #90 tabs 04/02/24 06/01/24 Rx metoprolol tartrate 25 mg tablet 25 mg PO BID 90 days #180 tabs 04/02/24 06/01/24 Rx aspirin 81 mg tablet,delayed 81 mg PO DAILY 04/07/24 06/01/24 History release empagliflozin 25 mg tablet 25 mg PO DAILY 04/07/24 06/01/24 History (Jardiance) gabapentin 800 mg tablet 800 mg PO QID 04/07/24 06/01/24 History metformin 1,000 mg tablet 1,000 mg PO BID 04/07/24 06/01/24 History nitroglycerin 0.4 mg sublingual 0.4 mg sublingual Q5MINP PRN Chest 04/07/24 06/01/24 History tablet Pain omeprazole 40 mg capsule,delayed 40 mg PO DAILY 04/07/24 06/01/24 History release sitagliptin phosphate 100 mg 100 mg PO DAILY 04/07/24 06/01/24 History tablet (Januvia) tamsulosin 0.4 mg capsule 0.4 mg PO HS 04/07/24 06/01/24 History clopidogrel 75 mg tablet 75 mg PO DAILY 30 days #30 tabs 06/02/24 Rx digoxin 125 mcg (0.125 mg) tablet 125 mcg PO DAILY 30 days #30 tabs 06/02/24 Rx furosemide 40 mg tablet 40 mg PO DAILY 90 days #90 tabs 06/02/24 Rx ipratropium 0.5 mg-albuterol 3 mg 3 ml inhalation Q6H PRN wheezing 06/02/24 Rx (2.5 mg base)/3 mL nebulization #180 mL soln nicotine 21 mg/24 hr daily 42 mg transdermal DAILY 28 days 06/02/24 Rx transdermal patch #56 ea rivaroxaban 15 mg tablet (Xarelto) 15 mg PO QPMWITHMEAL 30 days #30 06/02/24 Rx tabs New Prescriptions to Start Prescriptions: Jose Brown digoxin Lenny,Jose furosemide Jose Galvez ipratropium-albuterol Jose Galvez nicotine Lenny,Jose rivaroxaban [Xarelto] Jose Galvez Allergies Allergy/AdvReac Type Severity Reaction Status Date / Time No Known Allergies Allergy Verified 04/14/24 13:21 Discharge Plan Disposition Patient Disposition: Home, Self-Care Condition: Fair Follow up Plan Follow up with: Wilfrid Martinez MD [Primary Care Provider] - 06/09/24 11:00 am Obie Brown MD [Physician] - 06/23/24 1:00 pm Oleksandr Koroma MD [Staff Physician] - 06/10/24 10:00 am Prescriptions/Medication Reconciliation: New clopidogrel 75 mg Tablet 75 mg PO DAILY 30 Days Qty: 30 0RF nicotine 21 mg/24 hr Patch 24 Hour 42 mg transdermal DAILY 28 Days Qty: 56 0RF digoxin 125 mcg (0.125 mg) Tablet 125 mcg PO DAILY 30 Days Qty: 30 0RF Xarelto 15 mg Tablet 15 mg PO QPMWITHMEAL 30 Days Qty: 30 0RF ipratropium-albuterol 0.5 mg-3 mg(2.5 mg base)/3 mL solution for nebulization 3 ml inhalation Q6H PRN (Reason: wheezing) Qty: 180 0RF Continued atorvastatin 80 mg tablet 80 mg PO HS 90 Days Qty: 90 0RF metoprolol tartrate 25 mg tablet 25 mg PO BID 90 Days Qty: 180 0RF aspirin 81 mg Tablet,Delayed Release (Dr/Ec) 81 mg PO DAILY gabapentin 800 mg tablet 800 mg PO QID Jardiance 25 mg tablet 25 mg PO DAILY metformin 1,000 mg tablet 1,000 mg PO BID nitroglycerin 0.4 mg tablet, sublingual 0.4 mg sublingual Q5MINP PRN (Reason: Chest Pain) Patient Comments: DISSOLVE 1 TABLET UNDER THE TONGUE EVERY 5 MINUTES NEEDED FOR CHEST PAIN. IF 3 TABLETS ARE NEEDED, GO TO EMERGENCY ROOM. omeprazole 40 mg capsule,delayed release(DR/EC) 40 mg PO DAILY Patient Comments: TAKE 1 CAPSULE 1 TIME EACH DAY FOR ACID REFLUX Januvia 100 mg tablet 100 mg PO DAILY tamsulosin 0.4 mg capsule 0.4 mg PO HS Patient Comments: TAKE 1 CAPSULE 1 TIME EACH DAY AT BEDTIME FOR PROSTATE furosemide 40 mg tablet 40 mg PO DAILY 90 Days Qty: 90 3RF Discontinued Brilinta 90 mg tablet 90 mg PO BID clopidogrel 75 mg tablet 75 mg PO BID Patient Comments: TAKE 1 TABLET 1 TIME EACH DAY FOR BLOOD THINNER Problem Reconciliation Problems Reviewed?: Yes Patient Discharge Instructions ACTIVITY: Continue current activity DIET: continue same diet Patient Instructions: Congestive Heart Failure (Alternative Therapy), Heart Failure Print Language: Greek Providers Primary Care Provider: Wilfrid Martinez Admit Provider: Jose Galvez Attending Provider: Jose Galvez
[2024-06-02 07:35] VITALS: BP 111/75; PULSE 65; RESP 20; TEMP 36.4; O2SAT 95
[2024-06-02 08:08] VITALS: PULSE 65
[2024-06-02] MEDS: DIGOXIN 0.125MG TABLET 125 MCG PO (08:08)
[2024-06-02] MEDS: NICOTINE 21MG/24HR PATCH 42 MG TD (08:08)
[2024-06-02] MEDS: CLOPIDOGREL 75MG TAB 75 MG PO (08:08)
[2024-06-02] MEDS: METOPROLOL TARTRATE 25MG TABLET 25 MG PO (08:09)
[2024-06-02] MEDS: GABAPENTIN 800MG TABLET 800 MG PO (08:09)
[2024-06-02] MEDS: SITAGLIPTIN 50MG TABLET 100 MG PO (08:09)
[2024-06-02] MEDS: EMPAGLIFLOZIN 10MG TABLET 25 MG PO (08:09)
[2024-06-02] MEDS: FUROSEMIDE 40 MG TABLET PO (08:09)
[2024-06-02] MEDS: METFORMIN 500MG TABLET 1000 MG PO (08:09)
[2024-06-02] MEDS: MAGNESIUM SULFATE IN WATER 2 GM/50 ML PIGGYBACK IV ×2 (08:33→09:18)
--- NOTE | 2024-06-02 08:54 | P.PN_ITS ---
Subjective Subjective Date: 06/02/24 Time: 08:30 Principal diagnosis: acute exacerbation of HFrEF Interval history: Patient doing well this morning. Reports shortness of breath is greatly improved. Maintaining oxygen saturation 95% on room air. Blood pressure stable at 111/75. Morning labs reviewed and stable Exam Data for Last 24 hours Vital signs and Labs for Last 24 Hours: Temp Pulse Resp BP Pulse Ox O2 Del Method O2 Flow Rate 97.6 F 65 20 111/75 95 Room Air 1 06/02/24 07:35 06/02/24 08:08 06/02/24 07:35 06/02/24 07:35 06/02/24 07:35 06/02/24 07:35 06/02/24 04:00 Laboratory Results - last 24 hr 06/01/24 07:58: D-Dimer 1.72 H 06/01/24 11:08: Troponin I 0.02 06/01/24 12:07: Digoxin < 0.40 06/01/24 14:20: Troponin I 0.03 06/01/24 16:39: Sodium 130 L, Potassium 4.2, Chloride 93 L, Carbon Dioxide 32 H, Anion Gap 9.2, BUN 12 D, Creatinine 0.90 D, Estimated Creat Clear 83, Estimated GFR 84, Est GFR ( Amer) 101 D, Glucose 130 H, Calcium 8.7, Magnesium 1.7 D 06/02/24 06:49: WBC 8.5, RBC 4.08 L, Hgb 12.4 L, Hct 36.7 L, MCV 90.0, MCH 30.4, MCHC 33.8, RDW 15.4, Plt Count 264, MPV 9.5, Neut % (Auto) 67.1, Lymph % (Auto) 20.8, [place] % (Auto) 9.6 H, Eos % (Auto) 1.3, Baso % (Auto) 0.8, Neut # (Auto) 5.7, Lymph # (Auto) 1.8, [place] # (Auto) 0.8, Eos # (Auto) 0.1, Baso # (Auto) 0.1, Sodium 132 L, Potassium 4.1, Chloride 95 L, Carbon Dioxide 32 H, Anion Gap 9.1, BUN 11, Creatinine 0.90, Estimated Creat Clear 79, Estimated GFR 84, Est GFR ( Amer) 101, Glucose 121 H, Calcium 8.6, Magnesium 1.7, Total Bilirubin 0.7, AST 37, ALT 14, Alkaline Phosphatase 86, Total Protein 6.7, Albumin 3.7, Globulin 3.0, Albumin/Globulin Ratio 1.2 I & O for Last 24 hours: Intake & Output 05/30/24 05/31/24 06/01/24 06/02/24 23:59 23:59 23:59 23:59 Intake Total 980 / 1330 620 / 620 Output Total 5925 / 6425 800 / 800 Balance -4945 / -5095 -180 / -180 Weight 185 lb 177 lb 1.6 oz Constitutional Constitutional: no acute distress *Routine Respiratory Exam Respiratory: Present CTA bilaterally and symmetric chest movement *Routine Cardiovascular Exam Cardiovascular: Present RRR, Normal S1 and Normal S2 *Routine Abdominal Exam Abdominal: Present soft and normoactive bowel sounds; Absent tenderness *Routine Extremities Exam Extremities: Present full ROM and normal capillary refill; Absent edema *Routine Skin Exam Skin: Present intact, dry and warm Detailed Neck Exam: Thyroids Thyroid: Absent bruit Progress Note: A&P Assessment and plan (1) Heart failure with reduced ejection fraction: Status: Acute (2) Pleural effusion, bilateral: Status: Acute (3) Paroxysmal A-fib: Status: Acute (4) Acute hypoxemic respiratory failure: Status: Acute (5) DM type 2 (diabetes mellitus, type 2): Status: Acute (6) HLD (hyperlipidemia): Status: Acute (7) Coronary artery disease: Status: Chronic Assessment and Plan Assessment and Plan for All Diagnoses:: Acute on chronic heart failure reduced EF CTA negative for PE, does show moderate to large pleural effusions 03/2024 EF 45, repeat limited shows same, no change Patient was given Lasix 60 mg IV x 1 in the ER Continue home dose of Lasix 40 mg p.o. daily Blood pressure too low to initiate GERTRUDE/ARB/ARNI. Will consider additional meds at office follow-up. History of coronary artery disease Recent stenting February 2024 at [facility] Patient denies chest pain Troponin negative EKG negative for acute ischemic changes Continue Plavix and statin History of paroxysmal atrial fibrillation Chadsvasc > 2 Currently normal sinus rhythm Continue digoxin and Xarelto Dig level normal CV summary 06/02/2024: CV stable for discharge home. Please continue below listed medications and have patient follow-up in cardiology clinic in 1 week for reevaluation. Consider outpatient stress testing for low EF. Consider addition of Arni, Aldactone and Jardiance at office follow-up if BP will tolerate. CV meds: Digoxin 0.125 mcg p.o. daily Xarelto 50 mg p.o. daily Plavix 75 mg p.o. daily Atorvastatin 80 mg p.o. daily Lasix 40 mg p.o. daily
--- NOTE | 2024-06-02 09:44 | EXP.PULM.PN ---
Subjective *Date: 06/02/24 *Time: 12:13 Interval history: No significant respiratory vents overnight. Patient admits significant improvement in his respiratory distress. Pulmonology Exam Inpatient Vital signs and Labs for Last 24 Hours: Temp Pulse Resp BP Pulse Ox O2 Del Method O2 Flow Rate 97.6 F 65 20 111/75 95 Room Air 1 06/02/24 07:35 06/02/24 08:08 06/02/24 07:35 06/02/24 07:35 06/02/24 07:35 06/02/24 09:00 06/02/24 04:00 Laboratory Results - last 24 hr 06/01/24 11:08: Troponin I 0.02 06/01/24 12:07: Digoxin < 0.40 06/01/24 14:20: Troponin I 0.03 06/01/24 16:39: Sodium 130 L, Potassium 4.2, Chloride 93 L, Carbon Dioxide 32 H, Anion Gap 9.2, BUN 12 D, Creatinine 0.90 D, Estimated Creat Clear 83, Estimated GFR 84, Est GFR ( Amer) 101 D, Glucose 130 H, Calcium 8.7, Magnesium 1.7 D 06/02/24 06:49: WBC 8.5, RBC 4.08 L, Hgb 12.4 L, Hct 36.7 L, MCV 90.0, MCH 30.4, MCHC 33.8, RDW 15.4, Plt Count 264, MPV 9.5, Neut % (Auto) 67.1, Lymph % (Auto) 20.8, [place] % (Auto) 9.6 H, Eos % (Auto) 1.3, Baso % (Auto) 0.8, Neut # (Auto) 5.7, Lymph # (Auto) 1.8, [place] # (Auto) 0.8, Eos # (Auto) 0.1, Baso # (Auto) 0.1, Sodium 132 L, Potassium 4.1, Chloride 95 L, Carbon Dioxide 32 H, Anion Gap 9.1, BUN 11, Creatinine 0.90, Estimated Creat Clear 79, Estimated GFR 84, Est GFR ( Amer) 101, Glucose 121 H, Calcium 8.6, Magnesium 1.7, Total Bilirubin 0.7, AST 37, ALT 14, Alkaline Phosphatase 86, Total Protein 6.7, Albumin 3.7, Globulin 3.0, Albumin/Globulin Ratio 1.2 Temp Pulse Resp BP Pulse Ox O2 Del Method O2 Flow Rate 97.5 F L 60 18 109/57 L 99 Nasal Cannula 2 06/01/24 15:40 06/01/24 15:40 06/01/24 15:40 06/01/24 15:40 06/01/24 15:40 06/01/24 15:40 06/01/24 15:40 Laboratory Results - last 24 hr 06/01/24 07:52: VBG pH 7.35, VBG pCO2 47.6, VBG pO2 26.6 L, VBG HCO3 25.5, VBG Total CO2 27.0, VBG O2 Saturation 41.5 L, VBG Base Excess -0.1, VBG Lactic Acid 1.8 06/01/24 07:58: WBC 11.2 H, RBC 4.02 L, Hgb 12.3 L, Hct 37.3 L, MCV 92.8, MCH 30.6, MCHC 33.0, RDW 15.9, Plt Count 271, MPV 9.5, Neut % (Auto) 76.8, Lymph % (Auto) 15.0, [place] % (Auto) 6.3, Eos % (Auto) 0.5, Baso % (Auto) 0.9, Neut # (Auto) 8.6 H, Lymph # (Auto) 1.7, [place] # (Auto) 0.7, Eos # (Auto) 0.1, Baso # (Auto) 0.1, PT 11.5, INR 1.03, APTT 26.6, D-Dimer 1.72 H, Sodium 133 L, Potassium 4.2, Chloride 97 L, Carbon Dioxide 28, Anion Gap 12.2, BUN 8 L, Creatinine 0.70, Estimated Creat Clear 78, Estimated GFR 112, Est GFR ( Amer) 135, Glucose 128 H, Calcium 8.3 L, Magnesium 0.8 L, Total Bilirubin 0.9, AST 38, ALT 17, Alkaline Phosphatase 79, Troponin I 0.01, NT-Pro-B Natriuret Pep 2940 H, Total Protein 6.8, Albumin 3.8, Globulin 3.0, Albumin/Globulin Ratio 1.3, TSH 2.54, Thyroxine (T4) 9.4 06/01/24 11:08: Troponin I 0.02 06/01/24 12:07: Digoxin < 0.40 06/01/24 14:20: Troponin I 0.03 I & O for Labs for Last 24 Hours: Intake & Output 05/30/24 05/31/24 06/01/24 06/02/24 23:59 23:59 23:59 23:59 Intake Total 980 / 1330 700 / 700 Output Total 5925 / 6425 800 / 800 Balance -4945 / -5095 -100 / -100 Weight 185 lb 177 lb 1.6 oz Intake & Output 05/29/24 05/30/24 05/31/24 06/01/24 23:59 23:59 23:59 23:59 Intake Total 120 / 120 Output Total 5425 / 5425 Balance -5305 / -5305 Weight 185 lb Constitutional: Present moderate distress Head: Present normocephalic and atraumatic ENT: Present normal exam, normal oropharynx and mucous membranes moist Neck: Present normal inspection and full ROM Respiratory: Present respiratory distress, crackles and able to speak in complete sentences; Absent rhonchi or wheezes Cardiac: Present S1/S2, Tachycardia and radial pulses present GI: Present soft and distention; Absent tenderness or guarding Skin: Present intact; Absent cyanosis or jaundice Neuro: Present alert, awake and oriented x 3 Extremities: Present normal inspection; Absent clubbing or cyanosis Psychiatric: Present normal affect and cooperative Assessment and Plan *Assessment and plan (1) Pleural effusion, bilateral: Status: Acute Category: Medical Code(s): J90 - Pleural effusion, not elsewhere classified (2) Acute hypoxemic respiratory failure: Status: Acute Category: Medical Code(s): J96.01 - Acute respiratory failure with hypoxia (3) Fibrosis of lung: Status: Acute Category: Medical Code(s): J84.10 - Pulmonary fibrosis, unspecified Plan Ms. Castro is a 69-year-old male history of tobacco abuse, pulmonary emphysema on the CT scan, not using any oxygen supplementation or inhalers at baseline CAD status post stenting type 2 diabetes mellitus, bilateral subpleural interstitial changes both upper lobe and lower lobe with lower lobe predominance relatively stable from her CT scan from September 2022. to ER with worsening respiratory distress and pulmonary was called for further evaluation and management. Patient denies any subjective fevers or chills per denies any worsening cough/productive phlegm. Denies any known sick contacts but admits gradually worsening respiratory distress. Patient admission found to have bilateral moderate to large pleural effusions equal on both sides. Concerning for heart failure exacerbation currently receiving diuretics. New oxygen requirements on 2 L. Does not appear to be in any respiratory distress. No other airspace disease/consolidative changes noted. Interval update: No acute respiratory vents overnight. Continue to receive diuretics. Improving oxygen months on room air auscultation significant improvement in aeration in bilateral lower lung moreno. Significant improvement on the noted bilateral effusions on chest x-ray from this morning. Plan: Continue NC oxygen supplementation NEEDED to maintain O2 saturation goal of 90% and above. On room air this morning saturating 93% at rest. Will hold off on performing thoracentesis at this point of time given clinical improvement and if improving effusions on chest x-ray DuoNebs 4 times daily PRN # Thank you for involving pulmonary in the patient Will follow the patient in pulmonary clinic 4 to 6 weeks post discharge
--- NOTE | 2024-06-02 10:23 | HMH.PHAINT1 ---
Pharmacy Intervention Comments: COUNSELED PATIENT ON NEW MEDICATIONS AND DISCONTINUED MEDICATIONS PRIOR TO DISCHARGE. PATIENT VERIFIED UNDERSTANDING.
--- NOTE | 2024-06-02 10:38 | XR_ITS ---
FINAL REPORT CLINICAL HISTORY: SOB COMPARISON: 06/01/2024 FINDINGS: Vague opacities bilateral lung bases. Normal pulmonary vascularity. Small right pleural effusion. Mediastinum is unremarkable. Borderline cardiomegaly. IMPRESSION: Bibasilar lung disease, favor pneumonia or edema. Reviewed, Interpreted and Dictated by Salinas Bernard MD Transcribed by Anh Workman Authenticated and [facility]
--- NOTE | 2024-06-03 11:17 | SW/DCPLANNER ---
Spoke with patient on the phone. Patient stated that everything is fine. Patient stated that clinic pharmacy brought his new medicine to his bed before discharge. Patient stated that he is aware of his upcoming appointments. Patient stated that he has no concerns or questions at this time. Chris Vickers
== END 2024-06-02 11:04 | disposition home or self-care (01) ==
LOC: ER 09:53 → 2ND 10:24
PROVIDERS: Nurse Practitioner; Admitting Provider Internal Medicine Adolescent Medicine; Emergency Provider Emergency Medicine; PCP Family Medicine; Visit Provider Internal Medicine Adolescent Medicine
DX: I50.23 Acute on chronic systolic (congestive) heart failure (principal); J44.1 Chronic obstructive pulmonary disease with (acute) exacerbation; I11.0 Hypertensive heart disease with heart failure; I25.10 Atherosclerotic heart disease of native coronary artery without angina pectoris; I25.2 Old myocardial infarction; E11.8 Type 2 diabetes mellitus with unspecified complications; G62.9 Polyneuropathy, unspecified; K21.9 Gastro-esophageal reflux disease without esophagitis; I48.0 Paroxysmal atrial fibrillation; Z71.6 Tobacco abuse counseling; F17.210 Nicotine dependence, cigarettes, uncomplicated; Z79.84 Long term (current) use of oral hypoglycemic drugs; Z79.4 Long term (current) use of insulin; Z79.82 Long term (current) use of aspirin; Z99.81 Dependence on supplemental oxygen; Z79.01 Long term (current) use of anticoagulants; E78.5 Hyperlipidemia, unspecified; Z79.02 Long term (current) use of antithrombotics/antiplatelets
CPT/HCPCS: 36415; 71045; 71275; 80048; 80053; 80162; 82803; 83735; 83880; 84436; 84443; 84484; 85025; 85378; 85610; 85730; 93005; 93308; 99291; G0378; J1940; J3475; Q9967

== ENCOUNTER 2024-06-10 09:56 | Outpatient (CLI) | payer MEDICARE, MEDICAID, SELFPAY ==
[2024-06-10 10:34] LABS: Basophils # 0.1 K/mm3 (0-0.2); Basophils % 0.9 % (0.1-2.0); Eosinophils # 0.1 K/mm3 (0.0-0.4); Eosinophils % 1.2 % (0.1-12.0); Hematocrit 43.5 % (42.0-52.0); Hemoglobin 14.5 g/dL (14.1-18.0); Lymphocytes # 2.8 K/mm3 (0.7-4.5); Lymphocytes % 25.7 % (10-50); Mean Corpuscular HGB Conc 33.3 g/dL (31.8-35.4); Mean Corpuscular Hemoglobin 30.9 pg (27.0-31.2); Mean Corpuscular Volume 92.8 fl (80-94); Mean Platelet Volume 9.6 fl (7.4-10.4); Monocytes # 0.8 K/mm3 (0.1-1.0); Monocytes % 7.7 % (1.7-9.3); Neutrophils # 6.9 K/mm3 (1.8-7.8); Neutrophils % 63.9 % (37.0-80.0); Platelet Count 318 K/mm3 (142-424); Red Blood Count 4.69 M/mm3 (4.60-6.20); White Blood Count 10.9 K/mm3 (4.8-10.8)
[2024-06-10 11:21] LABS: Alanine Aminotransferase 27 U/L (12-78); Albumin Level 4.8 g/dl (3.5-5.0); Alkaline Phosphatase 127 U/L (38-126); Anion Gap 20.2 mEq/L (5-15); Aspartate Amino Transferase 48 U/L (17-59); Bilirubin,Direct 0.3 mg/dl (0.0-0.4); Bilirubin,Indirect 0.3 mg/dL (0.0-0.9); Bilirubin,Total 0.6 mg/dl (0.2-1.3); Bilirubin,Unconjugated 0.3 mg/dL (0.0-1.1); Blood Urea Nitrogen 15 mg/dl (9-20); Calcium 9.4 mg/dl (8.4-10.2); Carbon Dioxide 36 mmol/L (22.0-30.0); Chloride 81 mmol/L (98-107); Chol/HDL Ratio 2.3 (1-3.5); Cholesterol 174 mg/dl (140-200); Estimated Glomerular Filt Rate 84 ml/min (>60); GFR (African American) 101 ML/MIN (>60); Glucose 217 mg/dl (74-100); HDL Cholesterol 76 mg/dl (40-60); Potassium 3.2 mmoL/L (3.5-5.1); Sodium 134 mmol/L (136-145); Total Protein,Serum 8.2 g/dl (6.3-8.2); Triglycerides 157 mg/dl (30-150); VLDL Cholesterol 31 mg/dL (0-40)
[2024-06-10 11:33] LABS: Direct LDL Cholesterol 82.09 mg/dL (100-129)
[2024-06-10 11:36] LABS: Free T4 (Free Thyroxine) 1.46 ng/dl (0.78-2.19)
[2024-06-10 11:52] LABS: Thyroid Stimulating Hormone 3.15 uIU/mL (0.465-4.68)
== END 2024-06-10 23:59 | disposition home or self-care (01) ==
PROVIDERS: PCP Family Medicine; Visit Provider Nurse Practitioner
DX: E83.42 Hypomagnesemia (principal); E11.69 Type 2 diabetes mellitus with other specified complication; E78.5 Hyperlipidemia, unspecified; I10 Essential (primary) hypertension; I25.118 Atherosclerotic heart disease of native coronary artery with other forms of angina pectoris
CPT/HCPCS: 36415; 80048; 80061; 80076; 84439; 84443; 85025

== ENCOUNTER 2024-10-21 09:33 | Outpatient (CLI) | payer MEDICARE, MEDICAID, SELFPAY ==
[2024-10-21 17:19] LABS: Basophils # 0.1 K/mm3 (0-0.2); Basophils % 0.7 % (0.1-2.0); Eosinophils # 0.1 Kmm3 (0.0-0.4); Eosinophils % 0.8 % (0.1-12.0); Hematocrit 38.1 % (42.0-52.0); Immature Granulocytes # 0.06 10^3uL; Immature Granulocytes % 0.6 %; Lymphocytes # 2.8 K/mm3 (0.7-4.5); Lymphocytes % 26.7 % (10-50); Mean Corpuscular HGB Conc 31.5 g/dL (31.8-35.4); Mean Corpuscular Hemoglobin 31.3 pg (27.0-31.2); Mean Corpuscular Volume 99.5 fl (80-94); Mean Platelet Volume 9.8 fl (7.4-10.4); Monocytes # 0.9 K/mm3 (0.1-1.0); Monocytes % 8.7 % (1.7-9.3); Neutrophils # 6.7 K/mm3 (1.8-7.8); Neutrophils % 62.5 % (37.0-80.0); Nucleated Red Blood Cells # 0 10^3/uL; Nucleated Red Blood Cells % 0 %; Platelet Count 285 K/mm3 (142-424); Red Blood Count 3.83 M/mm3 (4.60-6.20); White Blood Count 10.6 K/mm3 (4.8-10.8)
[2024-10-21 17:29] LABS: Alanine Aminotransferase 15 U/L (12-78); Albumin Level 3.3 g/dl (3.5-5.0); Albumin/Globulin Ratio 1.1 (1.1-1.8); Alkaline Phosphatase 76 U/L (38-126); Anion Gap 11.6 mEq/L (5-15); Aspartate Amino Transferase 36 U/L (17-59); Bilirubin,Total 0.6 mg/dl (0.2-1.3); Blood Urea Nitrogen 9 mg/dl (9-20); Calcium 8.6 mg/dl (8.4-10.2); Carbon Dioxide 31 mmol/L (22.0-30.0); Chloride 100 mmol/L (98-107); Estimated Glomerular Filt Rate 96 ml/min (>60); GFR (African American) 116 ML/MIN (>60); Globulin 2.9 g/dL (1.3-3.2); Glucose 81 mg/dl (74-100); Potassium 5.6 mmoL/L (3.5-5.1); Sodium 137 mmol/L (136-145); Total Protein,Serum 6.2 g/dl (6.3-8.2)
[2024-10-21 18:22] LABS: Hemoglobin A1C 6.9 % (4.0-6.0)
[2024-10-23 05:13] LABS: Hepatitis B Surface Antigen Negative (Negative)
== END 2024-10-21 23:59 | disposition home or self-care (01) ==
LOC: LAB.DROPOF 10-22 10:08
PROVIDERS: PCP Family Medicine; Visit Provider Family Medicine
DX: E78.5 Hyperlipidemia, unspecified (principal); I10 Essential (primary) hypertension; Z11.59 Encounter for screening for other viral diseases
CPT/HCPCS: 80053; 83036; 85025; 87340